=== PATIENT | female | born 1930 | race Caucasian/White ===

== ENCOUNTER 2017-04-15 11:46 | Inpatient (IN) | payer OTHER, MEDICARE ==
[~2017-04-15] VITALS: Ht 144.8 cm; Wt 62.1 kg
[~2017-04-15 11:46] MED LIST: ASPEC325 PO; CALC-20 PO; CLC100 PO; CTP1 PO; MOMLX PO; MULT-897 PO; NTRSLP4 SL; RXC5 PO
--- NOTE | 2017-04-15 12:13 | EMERGENCY ROOM VISIT NOTE ---
History Report prepared by Lamin: Michelle Duran Under the Supervision of: Dr. Nicolás Brooks M.D. First contact with patient: 11:56 Chief Complaint: CONFUSION Stated Complaint: CONFUSION History of Present Illness The patient is an 87 year old female who presents to the Emergency Room with complaints of worsening confusion since this 1000 morning. She was brought to the ED via EMS and is accompanied by her son, whom she lives with. Her son reports she has experienced 2 episodes of confusion in the past 2 months. This morning, when he woke her up, he noticed she was "not lucid". He states she became very weak when he tried to walk her to the bathroom for a sponge bath, which is her daily routine that she normally has no problem with, and he notes the distance is approximately 6 feet. She was unable to recall the word "buttons " as she was dressing herself, which is not normal for her. She also soiled herself with feces this morning, which is unusual for her. The patient ambulates with a walker and someone nearby to "spot her". She has not experienced any recent falls in the past 3 months. Her son denies any previous history of strokes. The patient and her son deny any recent fevers, chills, cough, congestion, nausea, vomiting or abdominal pain. Her PCP is Dr. Zeng with [facility]. Source of History: patient, family (son) Onset: 1000 this morning Position: other (global) Quality: other (confusion) Timing: worsening Associated Symptoms: + weakness, No fevers, No chills, No cough (cough or congestion), No nausea, No vomiting, No abdominal pain Review of Systems See HPI for pertinent positives and negatives. A total of ten systems were reviewed and were otherwise negative. Past Medical & Surgical Medical Problems: (1) Dementia (2) GERD (gastroesophageal reflux disease) (3) Osteoporosis Surgical Problems: (1) H/O shoulder replacement (2) History of open reduction and internal fixation (ORIF) procedure Family History Hypertension Social History Smoking Status: Never Smoker Alcohol Use: none Drug Use: none Marital Status: Housing Status: lives with family Occupation Status: retired Current/Historical Medications Scheduled Aspirin (Aspirin 81), 81 MG PO DAILY Calcium Carbonate (Calcium 600), 1 TAB PO DAILY Docusate Sodium (Docusate Sodium), 100 MG PO BID Multiple Vitamin (One Daily), 1 TAB PO DAILY Omeprazole (Eq Omeprazole), 20 MG PO DAILY Scheduled PRN Nitroglycerin (Nitrostat), 0.4 MG SL UD PRN for Chest Pain Polyethylene (Miralax), 17 GM PO DAILY PRN for Constipation Sennosides-Docusate Sodium (Doc-Q-Lax), 1 TAB PO DAILY PRN for Constipation Allergies Coded Allergies: No Known Allergies (Unverified , 04/15/17) Physical Exam Vital Signs Date Time Temp Pulse Resp B/P (MAP) Pulse Ox O2 Delivery O2 Flow Rate FiO2 04/15/17 15:29 79 21 132/78 96 Room Air 04/15/17 14:21 76 18 116/85 97 Room Air 04/15/17 13:48 97 18 96 Room Air 04/15/17 13:16 70 04/15/17 12:45 96 Room Air 04/15/17 12:00 37.0 86 18 146/98 96 Room Air Physical Exam GENERAL: Awake, alert, chronically ill-appearing, in no distress. alert to self only. HENT: Normocephalic, atraumatic. Oropharynx unremarkable. Dry mucous membranes. EYES: Normal conjunctiva. Sclera non-icteric. NECK: Supple. No nuchal rigidity. FROM. No JVD. RESPIRATORY: Decreased breath sounds at the bases. CARDIAC: Regular rate, normal rhythm. Extremities warm and well perfused. Pulses equal. ABDOMEN: Soft, non-distended. No tenderness to palpation. No rebound or guarding. No masses. RECTAL: Deferred. MUSCULOSKELETAL: Chest examination reveals no tenderness. The back is symmetrical on inspection without obvious abnormality. There is no CVA tenderness to palpation. No joint edema. LOWER EXTREMITIES: 4/5 strength in lower extremities and bilateral upper extremities. Calves are equal size bilaterally and non-tender. No edema. No discoloration. NEURO: Normal sensorium. No sensory or motor deficits noted. SKIN: No rash or jaundice noted. Medical Decision & Procedures ER Provider Diagnostic Interpretation: Radiology results as stated below per my review and radiologist interpretation: SINGLE VIEW CHEST CLINICAL HISTORY: Atypical chest pain. FINDINGS: An AP, portable, upright chest radiograph is compared to study dated 08/20/2014. The examination is degraded by portable technique and patient rotation. The heart appears enlarged and there is atherosclerotic calcification of the thoracic aorta. The pulmonary vascular structures noncongested. A large hiatal hernia is again noted. Chronic interstitial thickening is similar to previous. Left basilar atelectasis is again noted. The lungs and pleural spaces are otherwise clear. No pneumothorax is seen. The skeletal structures are osteopenic. A right shoulder arthroplasty is in place. Chronic posttraumatic deformity and a benign-appearing sclerotic lesion in the left proximal humerus are similar to previous. IMPRESSION: 1. Cardiomegaly with no acute cardiopulmonary abnormality. 2. Large hiatal hernia. Electronically signed by: Anuj Pina M.D. 04/15/2017 12:[address] HEAD WITHOUT CONTRAST (CT) CLINICAL HISTORY: confusion/weakness COMPARISON STUDY: 08/20/2014 TECHNIQUE: Axial CT of the brain is performed from the vertex to the skull base. IV contrast was not administered for this examination. A dose lowering technique was utilized adhering to the principles of ALARA. CT DOSE: 729.78 mGycm FINDINGS: No intra or extra-axial mass lesions are visualized. There is no CT evidence of acute cortical infarction. There is no evidence of midline shift. There is no acute hemorrhage. No calvarial fractures are visualized. There are moderate white matter hypodensities likely on a small vessel basis. There is no evidence of pathologic ventricular dilatation. There is no evidence of acute sinusitis IMPRESSION: No acute intracranial findings Electronically signed by: Dwain Sandoval M.D. 04/15/2017 1:08 PM Laboratory Results 04/15/17 13:30 Red Blood Count 4.56, Mean Corpuscular Volume 90.6, Mean Corpuscular Hemoglobin 29.6, Mean Corpuscular Hemoglobin Concent 32.7, Mean Platelet Volume 12.2, Neutrophils (%) (Auto) 91.4, Lymphocytes (%) (Auto) 2.2, Monocytes (%) (Auto) 5.8, Eosinophils (%) (Auto) 0.1, Basophils (%) (Auto) 0.2, Neutrophils # (Auto) 13.84, Lymphocytes # (Auto) 0.33, Monocytes # (Auto) 0.87, Eosinophils # (Auto) 0.02, Basophils # (Auto) 0.03 04/15/17 13:30 Test 04/15/17 13:27 04/15/17 13:30 04/15/17 13:45 Bedside Glucose 96 mg/dl (70-90) White Blood Count 15.13 K/uL (4.8-10.8) Red Blood Count 4.56 M/uL (4.2-5.4) Hemoglobin 13.5 g/dL (12.0-16.0) Hematocrit 41.3 % (37-47) Mean Corpuscular Volume 90.6 fL (80-100) Mean Corpuscular Hemoglobin 29.6 pg (25-34) Mean Corpuscular Hemoglobin Concent 32.7 g/dl (32-36) Platelet Count 268 K/uL (130-400) Mean Platelet Volume 12.2 fL (7.4-10.4) Neutrophils (%) (Auto) 91.4 % Lymphocytes (%) (Auto) 2.2 % Monocytes (%) (Auto) 5.8 % Eosinophils (%) (Auto) 0.1 % Basophils (%) (Auto) 0.2 % Neutrophils # (Auto) 13.84 K/uL (1.4-6.5) Lymphocytes # (Auto) 0.33 K/uL (1.2-3.4) Monocytes # (Auto) 0.87 K/uL (0.11-0.59) Eosinophils # (Auto) 0.02 K/uL (0-0.5) Basophils # (Auto) 0.03 K/uL (0-0.2) RDW Standard Deviation 46.9 fL (36.4-46.3) RDW Coefficient of Variation 14.3 % (11.5-14.5) Immature Granulocyte % (Auto) 0.3 % Immature Granulocyte # (Auto) 0.04 K/uL (0.00-0.02) Prothrombin Time 11.3 SECONDS (9.0-12.0) Prothromb Time International Ratio 1.1 (0.9-1.1) Anion Gap 7.0 mmol/L (3-11) Est Creatinine Clear Calc Drug Dose 21.9 ml/min Estimated GFR () 42.4 Estimated GFR (Non- 36.6 BUN/Creatinine Ratio 16.8 (10-20) Calcium Level 9.0 mg/dl (8.5-10.1) Total Bilirubin 3.8 mg/dl (0.2-1) Direct Bilirubin 2.7 mg/dl (0-0.2) Aspartate Amino Transf (AST/SGOT) 150 U/L (15-37) Alanine Aminotransferase (ALT/SGPT) 88 U/L (12-78) Alkaline Phosphatase 820 U/L (45-117) Total Protein 7.2 gm/dl (6.4-8.2) Albumin 2.9 gm/dl (3.4-5.0) Lipase 100 U/L (73-393) Urine Color DK YELLOW Urine Appearance CLEAR (CLEAR) Urine pH >= 9.0 (4.5-7.5) Urine Specific [place] 1.017 (1.000-1.030) Urine Protein 1+ (NEG) Urine Glucose (UA) NEG (NEG) Urine Ketones TRACE (NEG) Urine Occult Blood NEG (NEG) Urine Nitrite POS (NEG) Urine Bilirubin 1+ (NEG) Urine Urobilinogen NEG (NEG) Urine Leukocyte Esterase MODERATE (NEG) Urine WBC (Auto) >30 /hpf (0-5) Urine RBC (Auto) 0-4 /hpf (0-4) Urine Hyaline Casts (Auto) 5-10 /lpf (0-5) Urine Epithelial Cells (Auto) 0-5 /lpf (0-5) Urine Bacteria (Auto) 4+ (NEG) Laboratory results reviewed by me Medications Administered Medications (Trade) Dose Ordered Sig/Pricila Route Start Time Stop Time Status Last Admin Dose Admin Sodium Chloride 1,000 ml @ 999 mls/hr Q1H1M STAT IV 04/15/17 12:19 04/15/17 13:19 DC 04/15/17 13:52 999 MLS/HR Ceftriaxone Sodium (Rocephin Inj) 1 gm NOW STAT IV 04/15/17 15:05 04/15/17 15:07 DC 04/15/17 15:28 1 GM ECG Indication: weakness Rate (beats per minute): 81 Rhythm: normal sinus Findings: no acute ischemic change, other (normal axis) Change: no significant change (No change from 08/21/2014) ED Course 1204: The patient was evaluated in room B12. A complete history and physical exam was performed. 1219: NSS 1000 ml @ 999 mls/hr IV. 1505: Rocephin 1 gm IV. 1529: I discussed the patients case with Starr Curran PA-C, [facility] Hospitalist. The patient will be further evaluated. 1540: I reevaluated the patient. She is resting comfortably. I discussed my recommendation she remain in the hospital for further evaluation and management and she and her son verbalized complete understanding and agreement. Medical Decision I reviewed the patient's past medical history, medications, and the nursing notes as described above. Differential Diagnoses: Dehydration, infection (pulmonary or urinary source), failure to thrive, electrolyte abnormality, less likely stroke or intracranial hemorrhage. The patient is a 87-year-old woman who presents to the emergency department from home with worsening mental status and generalized weakness. History of present illness. Arrival with the patient is alert to self only and otherwise in no acute distress. Afebrile with stable vital signs. EKG unremarkable. Chest x-ray negative. CT head unremarkable. WBC with leukocytosis to 15. UA positive for UTI. Given ceftriaxone. Considering this patient has a urinary tract infection with a subsequent change in mental status and decline from her baseline functional status. Thus, patient would not be safe if discharged home. I discussed this with the patient's son who cares for the patient at her home and he is agreeable with plan for admission. Discussed with the hospitalist will admit the patient to the medicine service for further management. Medication Reconcilliation Current Medication List: was personally reviewed by me Blood Pressure Screening Patient's blood pressure: Elevated blood pressure Blood pressure disposition: Elevated BP felt to be situational Consults Time Called: 1525 Consulting Physician: [facility] Returned Call: 1529 I discussed the patients case with St[facility]. The patient will be further evaluated. Impression Primary Impression: UTI (urinary tract infection) Additional Impression: Altered mental status Scribe Attestation The scribe's documentation has been prepared under my direction and personally reviewed by me in its entirety. I confirm that the note above accurately reflects all work, treatment, procedures, and medical decision making performed by me. Departure Information Dispostion Being Evaluated By Hospitalist Referrals Enoc Duran M.D. (PCP) Patient Instructions My [facility] Problem Qualifiers
[2017-04-15] MEDS ORDERED: SODIUM CHLORIDE 0.9% 1000ML 1,000 ML IV STA (12:19)
--- NOTE | 2017-04-15 12:56 | DIAGNOSTIC IMAGING REPORT ---
SINGLE VIEW CHEST CLINICAL HISTORY: Atypical chest pain. FINDINGS: An AP, portable, upright chest radiograph is compared to study dated 08/20/2014. The examination is degraded by portable technique and patient rotation. The heart appears enlarged and there is atherosclerotic calcification of the thoracic aorta. The pulmonary vascular structures noncongested. A large hiatal hernia is again noted. Chronic interstitial thickening is similar to previous. Left basilar atelectasis is again noted. The lungs and pleural spaces are otherwise clear. No pneumothorax is seen. The skeletal structures are osteopenic. A right shoulder arthroplasty is in place. Chronic posttraumatic deformity and a benign-appearing sclerotic lesion in the left proximal humerus are similar to previous. IMPRESSION: 1. Cardiomegaly with no acute cardiopulmonary abnormality. 2. Large hiatal hernia. Electronically signed by: Anuj Pina M.D. 04/15/2017 12:55 PM Dictated Date/Time: 04/15/2017 12:53 PM
--- NOTE | 2017-04-15 13:10 | DIAGNOSTIC IMAGING REPORT ---
CT HEAD WITHOUT CONTRAST (CT) CLINICAL HISTORY: confusion/weakness COMPARISON STUDY: 08/20/2014 TECHNIQUE: Axial CT of the brain is performed from the vertex to the skull base. IV contrast was not administered for this examination. A dose lowering technique was utilized adhering to the principles of ALARA. CT DOSE: 729.78 mGycm FINDINGS: No intra or extra-axial mass lesions are visualized. There is no CT evidence of acute cortical infarction. There is no evidence of midline shift. There is no acute hemorrhage. No calvarial fractures are visualized. There are moderate white matter hypodensities likely on a small vessel basis. There is no evidence of pathologic ventricular dilatation. There is no evidence of acute sinusitis IMPRESSION: No acute intracranial findings Electronically signed by: Dwain Sandoval M.D. 04/15/2017 1:08 PM Dictated Date/Time: 04/15/2017 1:07 PM
[2017-04-15 14:00] LABS: HEMATOCRIT 41.3 % (37-47); MEAN CELL VOLUME 90.6 fL (80-100); MEAN CORPUSCULAR HEMOGLOBIN 29.6 pg (25-34); MEAN CORPUSCULAR HGB CONC 32.7 g/dl (32-36); MEAN PLATELET VOLUME 12.2 fL (7.4-10.4); PLATELET COUNT 268 K/uL (130-400); RED BLOOD COUNT 4.56 M/uL (4.2-5.4); WHITE BLOOD COUNT 15.13 K/uL (4.8-10.8)
[2017-04-15 14:09] LABS: INR 1.1 (0.9-1.1); PROTHROMBIN TIME (PATIENT) 11.3 SECONDS (9.0-12.0)
[2017-04-15 14:16] LABS: URINE APPEARANCE CLEAR (CLEAR); URINE COLOR DK YELLOW; URINE EPITHELIAL CELL AUTO 0-5 /lpf (0-5); URINE NITRITE POS (NEG); URINE PH >= 9.0 (4.5-7.5); URINE SPECIFIC GRAVITY 1.017 (1.000-1.030); UROBILINOGEN NEG (NEG)
[2017-04-15 14:25] LABS: BASO % 0.2 %; BASO ABS # 0.03 K/uL (0-0.2); COMPLETE YES; EOS % 0.1 %; IG% 0.3 %; LYMPH % 2.2 %; LYMPH ABS # 0.33 K/uL (1.2-3.4); MONO % 5.8 %; NEUT % 91.4 %
[2017-04-15 14:33] LABS: URINE BILIRUBIN 1+ (NEG)
[2017-04-15 14:34] LABS: MANUAL MICROSCOPIC REQUIRED? NO; REVIEW REQ? NO; SULFASALICYLIC ACID POS (NEG)
[2017-04-15 14:59] LABS: BUN/CREATININE RATIO 16.8 (10-20); CREATININE 1.3 mg/dl (0.60-1.20); POTASSIUM 4.5 mmol/L (3.5-5.1)
[2017-04-15] MEDS ORDERED: CEFTRIAXONE SOD INJ 1 GM ADDVIAL IV STA (15:05)
[2017-04-15] MEDS ORDERED: ACETAMINOPHEN 325 MG TAB PO PRN (16:15)
[2017-04-15] MEDS ORDERED: ASPI-435 PO (16:25)
[2017-04-15] MEDS ORDERED: CALC600T PO (16:25)
[2017-04-15] MEDS ORDERED: OMEP20TA31 PO (16:25)
[2017-04-15] MEDS ORDERED: MRLP17X PO (16:25)
[2017-04-15] MEDS ORDERED: SENN8.6T11 PO (16:25)
[2017-04-15] MEDS ORDERED: NITROGLYCERIN 0.4 MG SL PER TAB CHARGE SL PRN (16:30)
[2017-04-15] MEDS ORDERED: DOCUSATE SODIUM/SENNA 50/8.6MG TAB PO PRN (16:30)
[2017-04-15] MEDS ORDERED: CEFTRIAXONE SOD INJ 1 GM in DEXTROSE 5% ADD-VANTAGE 50ML 50 ML IV SCH (16:30)
[2017-04-15] MEDS ORDERED: POLYETHYLENE (MIRALAX) 17 GM PACK PO PRN (16:30)
--- NOTE | 2017-04-15 17:03 | History and Physical ---
History & Physical Date & Time of Service: Apr 15, 2017 at 16:26 Chief Complaint: Confusion Primary Care Physician: Zane Zeng D.O. History of Present Illness Source: patient, family (son at bedside), clinic records This is an 87 y/o female with PMH of dementia, GERD, and other problems listed below who presents to the ED with altered mental status. Hx obtained from son due to AMS. Per her son, patient was at baseline yesterday, then this morning she was more confused than usual. Son states she could not follow commands correctly and was unable to button her shirt. She was incontinent of stool this morning which was abnormal for her. At baseline she is forgetful and disoriented to year, but oriented to person and place, but this morning was unable to recall her son's name or her own last name. Son states she was lethargic and had difficulty standing from her recliner due to generalized weakness. She usually ambulates with a walker. No recent falls. 911 was called and patient was brought to ER by EMS. Son states she is improving but still not back to baseline. Patient is oriented to self and her son, but disoriented to place and time. She is unable to recall why she was brought here. She denies any complaints including chest pain or any other pain. Son states her PO intake has been decreased to 2 meals per day for 2 months. Patient is chronically incontinent of urine. No recent fevers, chills, URI symptoms, aspiration, cough , SOB, chest pain, abdominal pain, vomiting, diarrhea, urinary odor. There were no stroke like symptoms such as facial droop, slurred speech, or unilateral weakness. No history of cardiac disorder, per her son. Past Medical/Surgical History Medical Problems: (1) Dementia Status: Chronic (2) GERD (gastroesophageal reflux disease) Status: Chronic (3) Osteoporosis Status: Chronic Surgical Problems: (1) H/O shoulder replacement Status: Chronic (2) History of open reduction and internal fixation (ORIF) procedure Permanent Comment: right hip 2014 Status: Chronic Family History Hypertension Social History Smoking Status: Never Smoker Alcohol Use: none Marital Status: Housing status: lives with family (with son) Occupational Status: retired Allergies Coded Allergies: No Known Allergies (Unverified , 04/15/17) Home Medications Scheduled Aspirin (Aspirin 81), 81 MG PO DAILY Calcium Carbonate (Calcium 600), 1 TAB PO DAILY Docusate Sodium (Docusate Sodium), 100 MG PO BID Multiple Vitamin (One Daily), 1 TAB PO DAILY Omeprazole (Eq Omeprazole), 20 MG PO DAILY Scheduled PRN Nitroglycerin (Nitrostat), 0.4 MG SL UD PRN for Chest Pain Polyethylene (Miralax), 17 GM PO DAILY PRN for Constipation Sennosides-Docusate Sodium (Doc-Q-Lax), 1 TAB PO DAILY PRN for Constipation Review of Systems Unable to complete full ROS due to patient's mental status. Physical Exam Vital Signs Date Time Temp Pulse Resp B/P (MAP) Pulse Ox O2 Delivery O2 Flow Rate FiO2 04/15/17 15:29 79 21 132/78 96 Room Air 04/15/17 14:21 76 18 116/85 97 Room Air 04/15/17 13:48 97 18 96 Room Air 04/15/17 13:16 70 04/15/17 12:45 96 Room Air 04/15/17 12:00 37.0 86 18 146/98 96 Room Air General Appearance: no apparent distress, + thin, + pertinent finding ( pleasantly confused frail elderly female, son at bedside) Head: normocephalic, atraumatic Eyes: normal inspection, PERRL, EOMI ENT: hearing grossly normal, pharynx normal, + pertinent finding (dry oral mucosa. mostly edentulous.) Neck: supple, trachea midline Respiratory/Chest: lungs clear, normal breath sounds, no respiratory distress Cardiovascular: regular rate, rhythm, no murmur, normal peripheral pulses Abdomen/GI: normal bowel sounds, non tender, soft Extremities/Musculoskelatal: no calf tenderness, no pedal edema Neurologic/Psych: sanitation technician II-XII nml as tested (no dysarthria or facial droop), alert, normal mood/affect, + disoriented (oriented to herself and her son, disoriented to place and date), + pertinent finding (pleasantly confused, repetitive. follows basic commands. no focal motor deficit. information services assistant strength 5/5 bilateral upper extremities. bilateral UE generally weak, able to lift off the bed equally,strength 4/5. ) Skin: normal color, warm/dry, + pertinent finding (erythema on buttocks per ER nursing staff) Diagnostics Laboratory Results Results Past 24 Hours Test 04/15/17 13:27 04/15/17 13:30 04/15/17 13:45 Range/Units Bedside Glucose 96 70-90 mg/dl White Blood Count 15.13 4.8-10.8 K/uL Red Blood Count 4.56 4.2-5.4 M/uL Hemoglobin 13.5 12.0-16.0 g/dL Hematocrit 41.3 37-47 % Mean Corpuscular Volume 90.6 80-100 fL Mean Corpuscular Hemoglobin 29.6 25-34 pg Mean Corpuscular Hemoglobin Concent 32.7 32-36 g/dl Platelet Count 268 130-400 K/uL Mean Platelet Volume 12.2 7.4-10.4 fL Neutrophils (%) (Auto) 91.4 % Lymphocytes (%) (Auto) 2.2 % Monocytes (%) (Auto) 5.8 % Eosinophils (%) (Auto) 0.1 % Basophils (%) (Auto) 0.2 % Neutrophils # (Auto) 13.84 1.4-6.5 K/uL Lymphocytes # (Auto) 0.33 1.2-3.4 K/uL Monocytes # (Auto) 0.87 0.11-0.59 K/uL Eosinophils # (Auto) 0.02 0-0.5 K/uL Basophils # (Auto) 0.03 0-0.2 K/uL RDW Standard Deviation 46.9 36.4-46.3 fL RDW Coefficient of Variation 14.3 11.5-14.5 % Immature Granulocyte % (Auto) 0.3 % Immature Granulocyte # (Auto) 0.04 0.00-0.02 K/uL Prothrombin Time 11.3 9.0-12.0 SECONDS Prothromb Time International Ratio 1.1 0.9-1.1 Sodium Level 138 136-145 mmol/L Potassium Level 4.5 3.5-5.1 mmol/L Chloride Level 104 98-107 mmol/L Carbon Dioxide Level 27 21-32 mmol/L Anion Gap 7.0 3-11 mmol/L Blood Urea Nitrogen 22 7-18 mg/dl Creatinine 1.30 0.60-1.20 mg/dl Est Creatinine Clear Calc Drug Dose 21.9 ml/min Estimated GFR () 42.4 Estimated GFR (Non- 36.6 BUN/Creatinine Ratio 16.8 10-20 Random Glucose 96 70-99 mg/dl Calcium Level 9.0 8.5-10.1 mg/dl Total Bilirubin 3.8 0.2-1 mg/dl Direct Bilirubin 2.7 0-0.2 mg/dl Aspartate Amino Transf (AST/SGOT) 150 15-37 U/L Alanine Aminotransferase (ALT/SGPT) 88 12-78 U/L Alkaline Phosphatase 820 45-117 U/L Troponin I 0.105 0-0.045 ng/ml Total Protein 7.2 6.4-8.2 gm/dl Albumin 2.9 3.4-5.0 gm/dl Lipase 100 73-393 U/L Urine Color DK YELLOW Urine Appearance CLEAR CLEAR Urine pH >= 9.0 4.5-7.5 Urine Specific [place] 1.017 1.000-1.030 Urine Protein 1+ NEG Urine Glucose (UA) NEG NEG Urine Ketones TRACE NEG Urine Occult Blood NEG NEG Urine Nitrite POS NEG Urine Bilirubin 1+ NEG Urine Urobilinogen NEG NEG Urine Leukocyte Esterase MODERATE NEG Urine WBC (Auto) >30 0-5 /hpf Urine RBC (Auto) 0-4 0-4 /hpf Urine Hyaline Casts (Auto) 5-10 0-5 /lpf Urine Epithelial Cells (Auto) 0-5 0-5 /lpf Urine Bacteria (Auto) 4+ NEG Microbiology Results 04/15/17 Urine Culture, Received Pending Diagnostic Radiology CT HEAD WITHOUT CONTRAST (CT) IMPRESSION: No acute intracranial findings SINGLE VIEW CHEST IMPRESSION: 1. Cardiomegaly with no acute cardiopulmonary abnormality. 2. Large hiatal hernia. EKG poor data quality, NSR, 81 bpm, no ST change appreciated Impression Assessment and Plan ALTERED MENTAL STATUS Has baseline dementia; presents with increased confusion x 1 day Likely metabolic encephalopathy due to UTI, dehydration CT head- no acute findings Monitor for delirium URINARY TRACT INFECTION UA appears infected; urine culture pending + Leukocytosis (WBC 15K); afebrile, no sepsis Treated with empiric ceftriaxone in ER Continue ceftriaxone DEHYDRATION Clinically dry, Cr 1.3 (was 1.1 in 07/2016), BUN 22 Given 1 liter IVF's in ER Continue NSS at 100 mL/hour MILDLY ELEVATED TROPONIN Denies chest pain; EKG- no obvious ischemic change Monitor in telemetry Trend cardiac enzymes ABNORMAL LFT'S No prior LFT"s for comparison No recent alcohol intake Consider RUQ ultrasound, hepatitis panel AMBULATORY DYSFUNCTION Fall precautions PT and OT evaluations ERYTHEMA OF BUTTOCKS Consult wound care nurse GERD Continue PPI DVT PROPHYLAXIS Heparin SQ CODE STATUS DNR per my discussion with patient's son Miki Cutler at bedside who is POA. . DISPOSITION Lives with her son; also of note the son's sister today and he is responsible for arrangements May need placement; outreach and education social worker consulted Patient seen in collaboration with Dr. Thakur. Please see his addendum. Attending Note: Patient is an 87 yr female with dementia presents with history of altered mental status and burning micturition. She denies chest pain, SOB, abdominal pain, nausea, vomiting. CT head showed no acute pathology. UA is suggestive of UTI. Has elevated LFTs and leukocytosis on blood work.Clinically looks dehydrated. Physical Exam: Vitals signs as noted above General Appearance:Moderately built and nourished, no apparent distress Head: normocephalic, Atraumatic Eyes: normal inspection, EOMI, PERRL Neck: supple, Trachea midline Respiratory/Chest: Normal breath sounds, CTA Cardiovascular: S1, S2, No murmur Abdomen/GI:Soft, Non tender, Bowel sounds present Extremities/Musculoskelatal:normal inspection, no edema Neurologic/Psych:grossly no focal neurological deficits Skin:normal color,warm Assessment and Plan: Encephalopathy H/O baseline dementia Likely secondary to UTI Urine culture Continue Rocephin CT head: no acute pathology No signs of sepsis clinically dehydrated, monitor renal function Abnormal LFTs: Unknown baseline Check ABD USD, hepatitis panel Avoid Hepatotoxic meds Consider GI eval based on work up I personally reviewed the record. Patient is interviewed and examined at bedside. Patient's care is coordinated with Starr Curran PA-C. Please refer to the documentation above for details of patient's presentation and for discussion of other issues. VTE Prophylaxis VTE Risk Assessment Done? Y/N: Yes Risk Level: High
[2017-04-15 18:52] VITALS: BP 115/75; PULSE 69; TEMP 37; O2SAT 97
[2017-04-15 18:53] VITALS: BP 115/75; PULSE 69; TEMP 37; O2SAT 97; Ht 144.8 cm; Wt 62.1 kg
[2017-04-15] MEDS: SODIUM CHLORIDE 0.9% 1000ML 1,000 ML IV SCH (19:36)
[2017-04-15] MEDS: DOCUSATE SODIUM 100 MG CAP PO SCH (20:50)
[2017-04-15] MEDS: HEPARIN SOD 5000 UNIT/0.5 ML CARP SQ SCH (20:58)
[2017-04-15 21:29] VITALS: O2SAT 96
[2017-04-16] VITALS (8 sets, daily range): BP systolic 127–156; BP diastolic 74–82; PULSE 58–61; TEMP 36.3–36.6; O2SAT 94–97
[2017-04-16] MEDS: SODIUM CHLORIDE 0.9% 1000ML 1,000 ML IV SCH ×3 (02:41→22:32)
[2017-04-16 06:36] LABS: HEMATOCRIT 35.3 % (37-47); MEAN CELL VOLUME 89.8 fL (80-100); MEAN CORPUSCULAR HGB CONC 31.2 g/dl (32-36); MEAN PLATELET VOLUME 11.9 fL (7.4-10.4); PLATELET COUNT 230 K/uL (130-400); RED BLOOD COUNT 3.93 M/uL (4.2-5.4)
--- NOTE | 2017-04-16 06:36 | DIAGNOSTIC IMAGING REPORT ---
ABDOMEN COMPLETE (US) HISTORY: Abnormal liver function tests Levanted LFTs. COMPARISON: None. FINDINGS: Pancreas: Poorly seen due to overlying bowel content Liver: Distended intrahepatic biliary ductal systems. Gallbladder: Distended with multiple gallstones. Mild pericholecystic fluid. Mild thickening gallbladder wall 3.7 mm. CBD: 8.5 mm Kidneys: No hydronephrosis. Spleen: Normal in size. Aorta: Normal in caliber. IVC: Patent. IMPRESSION: Distended intra as well as extrahepatic biliary ductal system. Distended gallbladder with mild thickening of the gallbladder wall and mild pericholecystic edema. Possibility of acute cholecystitis with biliary ductal obstruction must be considered The above report was generated using voice recognition software. It may contain grammatical, syntax or spelling errors. Electronically signed by: Clifton Wynn M.D. 04/16/2017 6:34 AM Dictated Date/Time: 04/16/2017 6:32 AM
[2017-04-16 07:10] LABS: BUN/CREATININE RATIO 21.1 (10-20); CALCIUM 8.2 mg/dl (8.5-10.1); CREATININE 0.97 mg/dl (0.60-1.20); POTASSIUM 3.9 mmol/L (3.5-5.1)
[2017-04-16] MEDS: DOCUSATE SODIUM 100 MG CAP PO SCH ×2 (08:22→20:17)
[2017-04-16] MEDS: ASPIRIN 81 MG ECTAB PO SCH (08:22)
[2017-04-16] MEDS: TRAMADOL HCL 50 MG TAB PO PRN (08:22)
[2017-04-16] MEDS: HEPARIN SOD 5000 UNIT/0.5 ML CARP SQ SCH ×2 (08:25→20:49)
[2017-04-16] MEDS ORDERED: CALCIUM 600MG + VIT D 400 IU TAB PO SCH (09:00)
[2017-04-16] MEDS ORDERED: MULTIVITAMIN TAB PO SCH (09:00)
[2017-04-16] MEDS ORDERED: PANTOprazole SOD 40 MG TAB PO SCH (09:00)
--- NOTE | 2017-04-16 09:42 | Clinical Documentation Query ---
CLINICAL DOCUMENTATION QUERY 87 year old female who presents to the Emergency Room with complaints of worsening confusion. Patient is documented as being dehydrated and with a UTI. In your clinical opinion is this patient being managed for: ( X ) WILNER in setting of UTI and dehydration causing metabolic encephalopathy treated and resolved with IVF's and antibiotics. ( ) Other explanation of clinical findings (Please Explain) ( ) Unable to determine (Please Define) ( ) Need to Discuss ( ) Not Agree The medical record reflects the following clinical findings, treatment, and risk factors. Clinical Indicators: BUN 22, Creatinine 1.30, GFR 36.6, After treatment Creatinine 0.97, with dry mucous membranes Treatment: IVF's, daily PRP's, Risk Factors: Age, infection, Please clarify and document your clinical opinion in the progress notes and discharge summary. Terms such as "probable", "suspected", "likely", "questionable", "possible", or "still to be ruled out" are acceptable. IF IN AGREEMENT, YOU MUST DOCUMENT ABOVE DIAGNOSTIC STATEMENT IN DAILY PROGRESS NOTES AND DISCHARGE SUMMARY. This document is not part of the patient's record. AKIAcute Renal/Kidney Injury is defined as a rapid and usually reversible decline in GFR that may occur in the setting of normal renal function or with preexisting renal disease. Acute renal failure may present with a range of abnormal parameters. Current RIFLE criteria notes the following: "Patients can be classified either by GFR or by UO criteria." According to RIFLE, WILNER is defined as any of the following: SCr increased 2-3x baseline or GFR decreased >50% or <0.5mL/kg/h > 12 hrs The DIPAK criteria differ from the RIFLE criteria in several ways. The RIFLE criteria are defined as changes within 7 days, while the DIPAK criteria suggest using 48 hours. The DIPAK classification includes less severe injury in the criteria and DIPAK also avoids using the glomerular filtration rate as a marker in WILNER, as there is no dependable way to measure glomerular filtration rate and estimated glomerular filtration rate are unreliable in WILNER. The criteria: Abrupt (within 48 h) reduction in kidney function currently defined as an absolute increase in serum creatinine of 0.3 mg/dL or more (=26.4 umol/L) or a percentage increase in serum creatinine of 50% or more (1.5-fold from baseline) or a reduction in urine output (documented oliguria of < 0.5 mL/kg/h for >6 h) In 2012 the Kidney [employer]proving [employer] (KDIGO) released their clinical practice guidelines for acute kidney injury (WILNER), which build off of the RIFLE criteria and the DIPAK criteria. KDIGO defines WILNER as any of the following: Increase in serum creatinine by 0.3mg/dL or more within 48 hours or increase in serum creatinine to 1.5 times baseline or more within the last 7 days or urine output less than 0.5 mL/kg/h for 6 hours Thank You, Roger Rodriguez, RN [phone]
[2017-04-16] MEDS: ONDANSETRON INJ 2 MG/ML 2 ML VIAL IV PRN (09:51)
[2017-04-16] MEDS ORDERED: NURSING DECISION MEDICATION ORDER SCH (10:00)
[2017-04-16] MEDS ORDERED: MICONAZOLE NITRATE POWDER 43 GM EXT PRN (10:15)
--- NOTE | 2017-04-16 14:29 | DIAGNOSTIC IMAGING REPORT ---
KUB CLINICAL HISTORY: R/O Obstruction pain COMPARISON STUDY: No previous studies for comparison. FINDINGS: Nonobstructive bowel pattern. No secondary signs of free air. Right hip pinning procedure findings. Mild degenerative change of the bony pelvis and lumbar spine. IMPRESSION: Nonobstructive bowel pattern. The above report was generated using voice recognition software. It may contain grammatical, syntax or spelling errors. Electronically signed by: Clifton Wynn M.D. 04/16/2017 2:27 PM Dictated Date/Time: 04/16/2017 2:26 PM
--- NOTE | 2017-04-16 15:43 | Progress Note ---
Internal Med Progress Note Date of Service: Apr 16, 2017. Provider Documentation: SUBJECTIVE: Seen and examined at bedside. Has Nausea and vomiting Denies Abdominal pain Also denies SOB, chest pain OBJECTIVE: Vital Signs-as noted below General Appearance:Moderately built and nourished, no apparent distress Head: normocephalic, Atraumatic Eyes: normal inspection, EOMI, PERRL Neck: supple, Trachea midline Respiratory/Chest: Normal breath sounds, CTA Cardiovascular: S1, S2, No murmur Abdomen/GI:Soft, Non tender, Bowel sounds present Extremities/Musculoskelatal:normal inspection, no edema Neurologic/Psych:grossly no focal neurological deficits Skin:normal color,warm Lab data as noted below. ASSESSMENT & PLAN: Encephalopathy: Likely metabolic from infection H/O baseline dementia CT head:No acute intracranial findings Improved UTI: Urine culture: gram negative bacilli Continue ceftriaxone Follow up urine culture Acute cholecystitis with biliary ductal obstruction Abdomen USD: suggestive of acute cholecystis and biliary obstruction NPO for now IV fluids Continue Ceftriaxone and Flagyl KUB:Nonobstructive bowel pattern Surgery consulted Avoid Hepatotoxic meds WILNER DEHYDRATION Clinically dry, Cr 1.3 on presentation Continue IV fluids Cr is back to baseline MILDLY ELEVATED TROPONIN Denies chest pain; EKG- no obvious ischemic change Monitor in telemetry Troponin trended down AMBULATORY DYSFUNCTION Fall precautions PT/OT GERD Continue PPI DVT Px Heparin SQ CODE STATUS DNR per my discussion with patient's son Miki Cutler at bedside who is POA. . DISPOSITION May need placement; social work nurse consulted Monitor in Tele for now Vital Signs: Date Time Temp Pulse Resp B/P (MAP) Pulse Ox O2 Delivery O2 Flow Rate FiO2 04/16/17 16:00 97 Room Air 04/16/17 15:20 36.4 60 16 156/82 (106) 97 04/16/17 12:30 Room Air 04/16/17 12:18 36.6 60 16 151/77 (101) 95 Room Air 04/16/17 07:45 Room Air 04/16/17 07:37 36.3 58 16 146/76 (99) 96 Room Air 04/16/17 04:26 36.4 58 20 147/79 (101) 97 Room Air 04/16/17 04:00 Room Air 04/16/17 00:18 36.3 61 20 127/74 (91) 97 Room Air 04/16/17 00:00 Room Air 04/15/17 21:29 96 Room Air 04/15/17 18:53 37.0 69 20 115/75 97 Room Air 04/15/17 18:52 37.0 69 20 115/75 (88) 97 Room Air Lab Results: Results Past 24 Hours Test 04/15/17 19:17 04/16/17 01:25 04/16/17 05:47 Range/Units Total Creatine Kinase 20 22 26-192 U/L Creatine Kinase MB < 0.5 < 0.5 0.5-3.6 ng/ml Creatine Kinase MB Ratio 0-3.0 Troponin I 0.101 0.099 0-0.045 ng/ml Hepatitis B Surface Antigen NEG NEG Hepatitis C Antibody NEG NEG White Blood Count 9.20 4.8-10.8 K/uL Red Blood Count 3.93 4.2-5.4 M/uL Hemoglobin 11.0 12.0-16.0 g/dL Hematocrit 35.3 37-47 % Mean Corpuscular Volume 89.8 80-100 fL Mean Corpuscular Hemoglobin 28.0 25-34 pg Mean Corpuscular Hemoglobin Concent 31.2 32-36 g/dl RDW Standard Deviation 47.1 36.4-46.3 fL RDW Coefficient of Variation 14.2 11.5-14.5 % Platelet Count 230 130-400 K/uL Mean Platelet Volume 11.9 7.4-10.4 fL Sodium Level 140 136-145 mmol/L Potassium Level 3.9 3.5-5.1 mmol/L Chloride Level 109 98-107 mmol/L Carbon Dioxide Level 25 21-32 mmol/L Anion Gap 6.0 3-11 mmol/L Blood Urea Nitrogen 21 7-18 mg/dl Creatinine 0.97 0.60-1.20 mg/dl Est Creatinine Clear Calc Drug Dose 29.9 ml/min Estimated GFR () 60.4 Estimated GFR (Non- 52.1 BUN/Creatinine Ratio 21.1 10-20 Random Glucose 83 70-99 mg/dl Calcium Level 8.2 8.5-10.1 mg/dl Total Bilirubin 2.2 0.2-1 mg/dl Direct Bilirubin 1.6 0-0.2 mg/dl Aspartate Amino Transf (AST/SGOT) 111 15-37 U/L Alanine Aminotransferase (ALT/SGPT) 72 12-78 U/L Alkaline Phosphatase 568 45-117 U/L Total Protein 5.6 6.4-8.2 gm/dl Albumin 2.1 3.4-5.0 gm/dl
[2017-04-16] MEDS: CEFTRIAXONE SOD INJ 1 GM in DEXTROSE 5% ADD-VANTAGE 50ML 50 ML IV SCH (16:10)
[2017-04-16] MEDS: METRONIDAZOLE / NSS 500 MG in PREMIXED NSS 100 ML IV SCH (16:56)
[2017-04-16] MEDS: RANITIDINE IV 50 MG in DEXTROSE 5% 100ML 100 ML IV SCH (18:09)
--- NOTE | 2017-04-16 19:57 | Surgery Consultation ---
Consultation Date of Consultation: Apr 16, 2017. Attending Physician: Eric Thakur MD Reason for Consultation: Elevated LFTs and possible cholecystitis History of Present Illness This patient has some degree of dementia. She was able to answer some questions but the majority of her history was obtained from the chart. Yesterday morning the patient was noted to be more confused than is her baseline. She had some fecal incontinence as well which is not baseline for her. She was not oriented to her last pain more to her son's name. She was not complaining of any abdominal pain at the time. She was admitted for workup and noted to have elevated LFTs. A gallbladder ultrasound was obtained. She has a dilated gallbladder with cholelithiasis and a common bile duct measuring 8.5 cm. Her liver function tests decreased this morning relative to yesterday. At the present time she has no abdominal pain. She was able to answer the majority of my questions appropriately. She has been having vomiting but she has not had nausea. She stated that the vomitus chest appears. It has been black. It is small in amount with each episode. She underwent a KUB today that showed no evidence of an obstructive pattern. She's not had previous abdominal surgery. She is not on anticoagulation. Past Medical/Surgical History Medical Problems: (1) Altered mental status Status: Acute (2) UTI (urinary tract infection) Status: Acute Family History Hypertension Social History Smoking Status: Unknown if Ever Smoked Smokeless Tobacco Use: No Alcohol Use: none Marital Status: Housing Status: lives with family Occupation Status: retired Allergies Coded Allergies: No Known Allergies (Unverified , 04/15/17) Home Medications Scheduled Aspirin (Aspirin 81), 81 MG PO DAILY Calcium Carbonate (Calcium 600), 1 TAB PO DAILY Docusate Sodium (Docusate Sodium), 100 MG PO BID Multiple Vitamin (One Daily), 1 TAB PO DAILY Omeprazole (Eq Omeprazole), 20 MG PO DAILY Scheduled PRN Nitroglycerin (Nitrostat), 0.4 MG SL UD PRN for Chest Pain Polyethylene (Miralax), 17 GM PO DAILY PRN for Constipation Sennosides-Docusate Sodium (Doc-Q-Lax), 1 TAB PO DAILY PRN for Constipation Current Inpatient Medications Current Inpatient Medications Medications (Trade) Dose Ordered Sig/Pricila Route Start Time Stop Time Status Last Admin Dose Admin Heparin Sodium (Porcine) (Heparin Sq 5000 Unit/0.5ml) 5,000 unit Q12 SQ 04/15/17 21:00 05/15/17 20:59 04/16/17 08:25 5,000 UNIT Sodium Chloride 1,000 ml @ 100 mls/hr Q10H IV 04/15/17 16:13 05/15/17 16:12 04/16/17 12:37 100 MLS/HR Ondansetron HCl (Zofran Inj) 4 mg Q6H PRN IV 04/15/17 16:15 05/15/17 16:14 04/16/17 09:51 4 MG Ceftriaxone Sodium 1 gm/ Dextrose 50 ml @ 100 mls/hr DAILY@1600 IV 04/16/17 16:00 04/20/17 15:59 04/16/17 16:10 100 MLS/HR Aspirin (Ecotrin Tab) 81 mg DAILY PO 04/16/17 09:00 05/16/17 08:59 04/16/17 08:22 81 MG Docusate Sodium (coLACE CAP) 100 mg BID PO 04/15/17 21:00 05/15/17 20:59 04/16/17 08:22 100 MG Nitroglycerin (Nitrostat Tab) 0.4 mg UD PRN SL 04/15/17 16:30 05/15/17 16:29 Polyethylene (Miralax Powder Packet) 17 gm DAILY PRN PO 04/15/17 16:30 05/15/17 16:29 Senna/Docusate Sodium (Senokot S Tab) 1 tab DAILY PRN PO 04/15/17 16:30 05/15/17 16:29 Calcium/Vitamin D (Caltrate Plus Tab) 1 tab DAILY PO 04/16/17 09:00 05/16/17 08:59 Future Hold 04/16/17 08:22 1 TAB Tramadol HCl (Ultram Tab) 50 mg Q6H PRN PO 04/16/17 08:00 05/16/17 07:59 04/16/17 08:22 50 MG Miconazole Nitrate (Desenex Powder) 1 appln PRN PRN EXT 04/16/17 10:15 05/16/17 10:14 Metronidazole 500 mg/Prmx 100 ml @ 100 mls/hr Q8H IV 04/16/17 16:00 04/26/17 15:59 04/16/17 16:56 100 MLS/HR Ranitidine HCl 50 mg/Dextrose 102 ml @ 200 mls/hr Q24H IV 04/16/17 16:00 05/16/17 15:59 04/16/17 18:09 200 MLS/HR Review of Systems Constitutional: No fever, No chills Cardiovascular: No chest pain Abdomen: + vomiting, No pain Integumentary: No rash Physical Exam Date Time Temp Pulse Resp B/P (MAP) Pulse Ox O2 Delivery O2 Flow Rate FiO2 04/16/17 19:27 36.6 59 18 151/77 (101) 96 Room Air 04/16/17 16:00 97 Room Air 04/16/17 15:20 36.4 60 16 156/82 (106) 97 04/16/17 12:30 Room Air 04/16/17 12:18 36.6 60 16 151/77 (101) 95 Room Air 04/16/17 07:45 Room Air 04/16/17 07:37 36.3 58 16 146/76 (99) 96 Room Air 04/16/17 04:26 36.4 58 20 147/79 (101) 97 Room Air 04/16/17 04:00 Room Air 04/16/17 00:18 36.3 61 20 127/74 (91) 97 Room Air 04/16/17 00:00 Room Air 04/15/17 21:29 96 Room Air General Appearance: + pertinent finding (elderly female with mild dementia) Head: normocephalic Neck: supple Respiratory/Chest: lungs clear Cardiovascular: regular rate, rhythm Abdomen/GI: normal bowel sounds, non tender, soft Back: normal inspection, no CVA tenderness Skin: normal color Laboratory Results Last 24 Hours Test 04/16/17 01:25 04/16/17 05:47 Total Creatine Kinase 22 U/L Creatine Kinase MB < 0.5 ng/ml Creatine Kinase MB Ratio Troponin I 0.099 ng/ml White Blood Count 9.20 K/uL Red Blood Count 3.93 M/uL Hemoglobin 11.0 g/dL Hematocrit 35.3 % Mean Corpuscular Volume 89.8 fL Mean Corpuscular Hemoglobin 28.0 pg Mean Corpuscular Hemoglobin Concent 31.2 g/dl RDW Standard Deviation 47.1 fL RDW Coefficient of Variation 14.2 % Platelet Count 230 K/uL Mean Platelet Volume 11.9 fL Sodium Level 140 mmol/L Potassium Level 3.9 mmol/L Chloride Level 109 mmol/L Carbon Dioxide Level 25 mmol/L Anion Gap 6.0 mmol/L Blood Urea Nitrogen 21 mg/dl Creatinine 0.97 mg/dl Est Creatinine Clear Calc Drug Dose 29.9 ml/min Estimated GFR () 60.4 Estimated GFR (Non- 52.1 BUN/Creatinine Ratio 21.1 Random Glucose 83 mg/dl Calcium Level 8.2 mg/dl Total Bilirubin 2.2 mg/dl Direct Bilirubin 1.6 mg/dl Aspartate Amino Transf (AST/SGOT) 111 U/L Alanine Aminotransferase (ALT/SGPT) 72 U/L Alkaline Phosphatase 568 U/L Total Protein 5.6 gm/dl Albumin 2.1 gm/dl Pertinent radiology as per history of present illness Assessment & Plan This patient has elevated LFTs which are decreasing. She also has an ultrasound that shows cholelithiasis with mildly thickened gallbladder wall and a dilated common bile duct. She is having some vomiting but denies nausea. She denies abdominal pain at this time. We'll course of treatment would be for a cholecystectomy with intraoperative cholangiogram for LFTs continued to decrease. The O would be to continue with intravenous antibiotics and treat her symptomatically and expectantly. I would need to discuss surgical options to see if that would even be something that the she and her family were entertained. I did have a discussion with her son. We will try to contact him earlier but he was not available. We will await LFTs in the morning. If they increased in ERCP may be the necessary first step if they are interested in such aggressive intervention. Thank you for allowing me to see this patient participate in her care.
[2017-04-17] MEDS: METRONIDAZOLE / NSS 500 MG in PREMIXED NSS 100 ML IV SCH ×3 (00:33→17:06)
[2017-04-17 04:16] VITALS: BP 158/85; PULSE 73; TEMP 36.8; O2SAT 98
[2017-04-17 06:47] LABS: BASO % 0.4 %; BASO ABS # 0.03 K/uL (0-0.2); COMPLETE YES; EOS % 1.8 %; IG% 0.1 %; LYMPH % 10.7 %; LYMPH ABS # 0.75 K/uL (1.2-3.4); MEAN CELL VOLUME 90.2 fL (80-100); MEAN CORPUSCULAR HEMOGLOBIN 29.3 pg (25-34); MEAN CORPUSCULAR HGB CONC 32.5 g/dl (32-36); MEAN PLATELET VOLUME 12.1 fL (7.4-10.4); MONO % 7.1 %; NEUT % 79.9 %; PLATELET COUNT 224 K/uL (130-400); RED BLOOD COUNT 3.99 M/uL (4.2-5.4); WHITE BLOOD COUNT 7.03 K/uL (4.8-10.8)
[2017-04-17 07:21] LABS: BUN/CREATININE RATIO 20.2 (10-20); CALCIUM 8.6 mg/dl (8.5-10.1); CREATININE 0.93 mg/dl (0.60-1.20); POTASSIUM 3.7 mmol/L (3.5-5.1)
[2017-04-17] MEDS: ASPIRIN 81 MG ECTAB PO SCH (07:46)
[2017-04-17] MEDS: DOCUSATE SODIUM 100 MG CAP PO SCH ×2 (07:46→21:56)
[2017-04-17] MEDS: SODIUM CHLORIDE 0.9% 1000ML 1,000 ML IV SCH (07:51)
[2017-04-17] MEDS: HEPARIN SOD 5000 UNIT/0.5 ML CARP SQ SCH ×2 (07:52→21:58)
[2017-04-17] MEDS: ONDANSETRON INJ 2 MG/ML 2 ML VIAL IV PRN (08:19)
[2017-04-17 11:26] VITALS: BP 162/84; PULSE 60; TEMP 36.5; O2SAT 96
--- NOTE | 2017-04-17 12:38 | Surgery Progress Note ---
Surgery Progress Note Date of Service Apr 17, 2017. Subjective Post OP Day: + feeling well, + vomiting, No chest pain, No SOB, No bowel movement, No nausea Very pleasant, known dementia. States she ate breakfast this morning but son/ POA present in room states she has not had breakfast this morning. Has been kept from not eating due to possible surgery. Had some vomiting with a little darkish/green emesis per son. Patient denies abdominal pain, chest pain, shortness of breath or difficulty breathing. Has chronic cough and phlegm production from hiatal hernia. States she has burning on urination. Objective Vital Signs: Date Time Temp Pulse Resp B/P (MAP) Pulse Ox O2 Delivery O2 Flow Rate FiO2 04/17/17 11:26 36.5 60 162/84 (110) 96 04/17/17 07:45 Room Air 04/17/17 04:16 36.8 73 20 158/85 (109) 98 Room Air 04/17/17 04:00 Room Air 04/17/17 02:00 Room Air 04/16/17 22:59 36.5 61 18 149/77 (101) 94 Room Air 04/16/17 19:27 36.6 59 18 151/77 (101) 96 Room Air 04/16/17 16:00 97 Room Air 04/16/17 15:20 36.4 60 16 156/82 (106) 97 04/16/17 12:30 Room Air General Appearance: WD/WN, no apparent distress Head: normocephalic, atraumatic Neck: trachea midline Respiratory/Chest: lungs clear, normal breath sounds, no respiratory distress, no accessory muscle use Cardiovascular: regular rate, rhythm, no murmur Abdomen: normal bowel sounds, non tender, non distended, soft, no organomegaly , no pulsatile mass Laboratory Results: Results Past 24 Hours Test 04/17/17 06:09 Range/Units White Blood Count 7.03 4.8-10.8 K/uL Red Blood Count 3.99 4.2-5.4 M/uL Hemoglobin 11.7 12.0-16.0 g/dL Hematocrit 36.0 37-47 % Mean Corpuscular Volume 90.2 80-100 fL Mean Corpuscular Hemoglobin 29.3 25-34 pg Mean Corpuscular Hemoglobin Concent 32.5 32-36 g/dl Platelet Count 224 130-400 K/uL Mean Platelet Volume 12.1 7.4-10.4 fL Neutrophils (%) (Auto) 79.9 % Lymphocytes (%) (Auto) 10.7 % Monocytes (%) (Auto) 7.1 % Eosinophils (%) (Auto) 1.8 % Basophils (%) (Auto) 0.4 % Neutrophils # (Auto) 5.61 1.4-6.5 K/uL Lymphocytes # (Auto) 0.75 1.2-3.4 K/uL Monocytes # (Auto) 0.50 0.11-0.59 K/uL Eosinophils # (Auto) 0.13 0-0.5 K/uL Basophils # (Auto) 0.03 0-0.2 K/uL RDW Standard Deviation 48.2 36.4-46.3 fL RDW Coefficient of Variation 14.4 11.5-14.5 % Immature Granulocyte % (Auto) 0.1 % Immature Granulocyte # (Auto) 0.01 0.00-0.02 K/uL Sodium Level 137 136-145 mmol/L Potassium Level 3.7 3.5-5.1 mmol/L Chloride Level 106 98-107 mmol/L Carbon Dioxide Level 24 21-32 mmol/L Anion Gap 7.0 3-11 mmol/L Blood Urea Nitrogen 19 7-18 mg/dl Creatinine 0.93 0.60-1.20 mg/dl Est Creatinine Clear Calc Drug Dose 31.2 ml/min Estimated GFR () 63.6 Estimated GFR (Non- 54.9 BUN/Creatinine Ratio 20.2 10-20 Random Glucose 82 70-99 mg/dl Calcium Level 8.6 8.5-10.1 mg/dl Total Bilirubin 1.2 0.2-1 mg/dl Direct Bilirubin 0.7 0-0.2 mg/dl Aspartate Amino Transf (AST/SGOT) 67 15-37 U/L Alanine Aminotransferase (ALT/SGPT) 62 12-78 U/L Alkaline Phosphatase 530 45-117 U/L Total Protein 6.1 6.4-8.2 gm/dl Albumin 2.4 3.4-5.0 gm/dl Assessment & Plan Acute Calculous Cholecystitis with dilated CBD - vitals stable - no leukocytosis - total bilirubin and direct bilirubin, LFTS improving - no abdominal pain, abdomen soft on examination. Plan: I discussed with patient and Son, Miki Cutler, who is her POA the findings of ultrasound as well as her elevated LFTS and bilirubin (which today have improved ). The ultrasound shows evidence of acute cholecystitis with gallbladder wall thickening, pericholecystic fluid, gallstones and dilated CBD at 8 mm. Given these findings, cholecystectomy is recommended. Patient's son states him and his brother have discussed the surgery and understand the risks and are in agreement about surgery. Will plan for laparoscopic cholecystectomy with cholangiogram on Thursday with Dr. Hopper Continue IV antibiotics Continue current medical management Dr. Encarnacion to cover this weekend Dr. Hopper has seen and examined patient, agrees with above
[2017-04-17 15:43] VITALS: BP 159/87; PULSE 61; TEMP 36.6; O2SAT 94
[2017-04-17 16:00] VITALS: O2SAT 94
--- NOTE | 2017-04-17 16:09 | Progress Note ---
Internal Med Progress Note Date of Service: Apr 17, 2017. Provider Documentation: SUBJECTIVE: Seen and examined at bedside. States feeling well today Denies Nausea, vomiting, Abdominal pain Also denies SOB, chest pain Planned for cholecystectomy on Thursday Offers no other complaints OBJECTIVE: Vital Signs-as noted below General Appearance:Moderately built and nourished, no apparent distress Head: normocephalic, Atraumatic Eyes: normal inspection, EOMI, PERRL Neck: supple, Trachea midline Respiratory/Chest: Normal breath sounds, CTA Cardiovascular: S1, S2, No murmur Abdomen/GI:Soft, Non tender, Bowel sounds present Extremities/Musculoskelatal:normal inspection, no edema Neurologic/Psych:grossly no focal neurological deficits Skin:normal color,warm Lab data as noted below. ASSESSMENT & PLAN: Encephalopathy: Likely metabolic from infection H/O baseline dementia CT head:No acute intracranial findings Resolved UTI: Urine culture:Proteus Continue ceftriaxone Acute cholecystitis with biliary ductal obstruction Abdomen USD: suggestive of acute cholecystis and biliary obstruction NPO for now IV fluids Continue Ceftriaxone and Flagyl KUB:Nonobstructive bowel pattern Appreciate Surgery input Avoid Hepatotoxic meds Planned for surgery on thursday LFTs improving WILNER DEHYDRATION Clinically dry, Cr 1.3 on presentation Continue IV fluids Cr is back to baseline MILDLY ELEVATED TROPONIN Denies chest pain; EKG- no obvious ischemic change Monitor in telemetry Troponin trended down AMBULATORY DYSFUNCTION Fall precautions PT/OT GERD Continue PPI DVT Px Heparin SQ CODE STATUS DNR per my discussion with patient's son Miki Cutler at bedside who is POA. . DISPOSITION May need placement; drug abuse social worker consulted Monitor in Tele for now Vital Signs: Date Time Temp Pulse Resp B/P (MAP) Pulse Ox O2 Delivery O2 Flow Rate FiO2 04/17/17 15:43 36.6 61 18 159/87 (111) 94 Room Air 04/17/17 12:30 Room Air 04/17/17 11:26 36.5 60 162/84 (110) 96 04/17/17 07:45 Room Air 04/17/17 04:16 36.8 73 20 158/85 (109) 98 Room Air 04/17/17 04:00 Room Air 04/17/17 02:00 Room Air 04/16/17 22:59 36.5 61 18 149/77 (101) 94 Room Air 04/16/17 19:27 36.6 59 18 151/77 (101) 96 Room Air Lab Results: Results Past 24 Hours Test 04/17/17 06:09 Range/Units White Blood Count 7.03 4.8-10.8 K/uL Red Blood Count 3.99 4.2-5.4 M/uL Hemoglobin 11.7 12.0-16.0 g/dL Hematocrit 36.0 37-47 % Mean Corpuscular Volume 90.2 80-100 fL Mean Corpuscular Hemoglobin 29.3 25-34 pg Mean Corpuscular Hemoglobin Concent 32.5 32-36 g/dl Platelet Count 224 130-400 K/uL Mean Platelet Volume 12.1 7.4-10.4 fL Neutrophils (%) (Auto) 79.9 % Lymphocytes (%) (Auto) 10.7 % Monocytes (%) (Auto) 7.1 % Eosinophils (%) (Auto) 1.8 % Basophils (%) (Auto) 0.4 % Neutrophils # (Auto) 5.61 1.4-6.5 K/uL Lymphocytes # (Auto) 0.75 1.2-3.4 K/uL Monocytes # (Auto) 0.50 0.11-0.59 K/uL Eosinophils # (Auto) 0.13 0-0.5 K/uL Basophils # (Auto) 0.03 0-0.2 K/uL RDW Standard Deviation 48.2 36.4-46.3 fL RDW Coefficient of Variation 14.4 11.5-14.5 % Immature Granulocyte % (Auto) 0.1 % Immature Granulocyte # (Auto) 0.01 0.00-0.02 K/uL Sodium Level 137 136-145 mmol/L Potassium Level 3.7 3.5-5.1 mmol/L Chloride Level 106 98-107 mmol/L Carbon Dioxide Level 24 21-32 mmol/L Anion Gap 7.0 3-11 mmol/L Blood Urea Nitrogen 19 7-18 mg/dl Creatinine 0.93 0.60-1.20 mg/dl Est Creatinine Clear Calc Drug Dose 31.2 ml/min Estimated GFR () 63.6 Estimated GFR (Non- 54.9 BUN/Creatinine Ratio 20.2 10-20 Random Glucose 82 70-99 mg/dl Calcium Level 8.6 8.5-10.1 mg/dl Total Bilirubin 1.2 0.2-1 mg/dl Direct Bilirubin 0.7 0-0.2 mg/dl Aspartate Amino Transf (AST/SGOT) 67 15-37 U/L Alanine Aminotransferase (ALT/SGPT) 62 12-78 U/L Alkaline Phosphatase 530 45-117 U/L Total Protein 6.1 6.4-8.2 gm/dl Albumin 2.4 3.4-5.0 gm/dl
[2017-04-17] MEDS: RANITIDINE IV 50 MG in DEXTROSE 5% 100ML 100 ML IV SCH (17:06)
[2017-04-17] MEDS: CEFTRIAXONE SOD INJ 1 GM in DEXTROSE 5% ADD-VANTAGE 50ML 50 ML IV SCH (18:06)
[2017-04-17] MEDS: D5W AND 1/2NSS + 20MEQ KCL 1,000 ML IV SCH (19:21)
[2017-04-17 20:00] VITALS: O2SAT 94
[2017-04-17 20:10] VITALS: BP 154/89; PULSE 81; TEMP 36.8; O2SAT 95
[2017-04-18] VITALS (11 sets, daily range): BP systolic 143–174; BP diastolic 80–97; PULSE 54–70; TEMP 36.4–37.1; O2SAT 92–97
[2017-04-18] MEDS: METRONIDAZOLE / NSS 500 MG in PREMIXED NSS 100 ML IV SCH ×3 (00:18→17:00)
[2017-04-18] MEDS ORDERED: POTASSIUM CHLORIDE 10 MEQ TABCR PO STA (00:46)
[2017-04-18 01:19] LABS: BASO % 0.9 %; BASO ABS # 0.06 K/uL (0-0.2); COMPLETE YES; EOS % 3.1 %; HEMATOCRIT 34.1 % (37-47); IG% 0.3 %; LYMPH ABS # 0.87 K/uL (1.2-3.4); MEAN CORPUSCULAR HEMOGLOBIN 30.1 pg (25-34); MEAN CORPUSCULAR HGB CONC 34.6 g/dl (32-36); MEAN PLATELET VOLUME 10.6 fL (7.4-10.4); MONO % 10.2 %; NEUT % 72.5 %; PLATELET COUNT 237 K/uL (130-400); RED BLOOD COUNT 3.92 M/uL (4.2-5.4); WHITE BLOOD COUNT 6.68 K/uL (4.8-10.8)
[2017-04-18 01:40] LABS: BUN/CREATININE RATIO 14.7 (10-20); CALCIUM 8.2 mg/dl (8.5-10.1); CREATININE 0.85 mg/dl (0.60-1.20); MAGNESIUM 1.6 mg/dl (1.8-2.4); POTASSIUM 3.4 mmol/L (3.5-5.1)
[2017-04-18] MEDS ORDERED: METOPROLOL TARTRATE 25 MG TAB PO ONE (02:27)
--- NOTE | 2017-04-18 02:28 | Progress Note ---
Internal Med Progress Note Date of Service: Apr 18, 2017. Provider Documentation: Made aware by RN of episodes of NSVT. Patient comfortable through episodes. Low potassium, low magnesium noted. AP NSVT Hypertension, elevated, not on maintenance medications Replace lytes Initiate low-dose beta chalino to suppress NSVT and for BP control. Will relay to AM provider. Vital Signs: Date Time Temp Pulse Resp B/P (MAP) Pulse Ox O2 Delivery O2 Flow Rate FiO2 04/18/17 08:03 36.7 56 22 162/83 (109) 96 Room Air 04/18/17 08:00 96 Room Air 04/18/17 04:00 Room Air 04/18/17 04:00 36.7 66 20 155/80 (105) Room Air 04/18/17 00:29 37.1 63 24 152/87 (108) 96 Room Air 04/18/17 00:00 Room Air 04/17/17 20:10 36.8 81 18 154/89 (110) 95 Room Air 04/17/17 20:00 94 Room Air 04/17/17 16:00 94 Room Air 04/17/17 15:43 36.6 61 18 159/87 (111) 94 Room Air 04/17/17 12:30 Room Air 04/17/17 11:26 36.5 60 162/84 (110) 96 Lab Results: Results Past 24 Hours Test 04/18/17 01:09 Range/Units White Blood Count 6.68 4.8-10.8 K/uL Red Blood Count 3.92 4.2-5.4 M/uL Hemoglobin 11.8 12.0-16.0 g/dL Hematocrit 34.1 37-47 % Mean Corpuscular Volume 87.0 80-100 fL Mean Corpuscular Hemoglobin 30.1 25-34 pg Mean Corpuscular Hemoglobin Concent 34.6 32-36 g/dl Platelet Count 237 130-400 K/uL Mean Platelet Volume 10.6 7.4-10.4 fL Neutrophils (%) (Auto) 72.5 % Lymphocytes (%) (Auto) 13.0 % Monocytes (%) (Auto) 10.2 % Eosinophils (%) (Auto) 3.1 % Basophils (%) (Auto) 0.9 % Neutrophils # (Auto) 4.84 1.4-6.5 K/uL Lymphocytes # (Auto) 0.87 1.2-3.4 K/uL Monocytes # (Auto) 0.68 0.11-0.59 K/uL Eosinophils # (Auto) 0.21 0-0.5 K/uL Basophils # (Auto) 0.06 0-0.2 K/uL RDW Standard Deviation 45.0 36.4-46.3 fL RDW Coefficient of Variation 14.1 11.5-14.5 % Immature Granulocyte % (Auto) 0.3 % Immature Granulocyte # (Auto) 0.02 0.00-0.02 K/uL Sodium Level 137 136-145 mmol/L Potassium Level 3.4 3.5-5.1 mmol/L Chloride Level 105 98-107 mmol/L Carbon Dioxide Level 24 21-32 mmol/L Anion Gap 8.0 3-11 mmol/L Blood Urea Nitrogen 13 7-18 mg/dl Creatinine 0.85 0.60-1.20 mg/dl Est Creatinine Clear Calc Drug Dose 34.1 ml/min Estimated GFR () 70.9 Estimated GFR (Non- 61.2 BUN/Creatinine Ratio 14.7 10-20 Random Glucose 104 70-99 mg/dl Calcium Level 8.2 8.5-10.1 mg/dl Magnesium Level 1.6 1.8-2.4 mg/dl
--- NOTE | 2017-04-18 07:21 | Surgery Progress Note ---
Surgery Progress Note Date of Service Apr 18, 2017. Subjective feeling ok, no vomiting Objective Vital Signs: Date Time Temp Pulse Resp B/P (MAP) Pulse Ox O2 Delivery O2 Flow Rate FiO2 04/18/17 04:00 Room Air 04/18/17 04:00 36.7 66 20 155/80 (105) Room Air 04/18/17 00:29 37.1 63 24 152/87 (108) 96 Room Air 04/18/17 00:00 Room Air 04/17/17 20:10 36.8 81 18 154/89 (110) 95 Room Air 04/17/17 20:00 94 Room Air 04/17/17 16:00 94 Room Air 04/17/17 15:43 36.6 61 18 159/87 (111) 94 Room Air 04/17/17 12:30 Room Air 04/17/17 11:26 36.5 60 162/84 (110) 96 04/17/17 07:45 Room Air General Appearance: no apparent distress Respiratory/Chest: no respiratory distress Abdomen: soft Laboratory Results: Results Past 24 Hours Test 04/18/17 01:09 Range/Units White Blood Count 6.68 4.8-10.8 K/uL Red Blood Count 3.92 4.2-5.4 M/uL Hemoglobin 11.8 12.0-16.0 g/dL Hematocrit 34.1 37-47 % Mean Corpuscular Volume 87.0 80-100 fL Mean Corpuscular Hemoglobin 30.1 25-34 pg Mean Corpuscular Hemoglobin Concent 34.6 32-36 g/dl Platelet Count 237 130-400 K/uL Mean Platelet Volume 10.6 7.4-10.4 fL Neutrophils (%) (Auto) 72.5 % Lymphocytes (%) (Auto) 13.0 % Monocytes (%) (Auto) 10.2 % Eosinophils (%) (Auto) 3.1 % Basophils (%) (Auto) 0.9 % Neutrophils # (Auto) 4.84 1.4-6.5 K/uL Lymphocytes # (Auto) 0.87 1.2-3.4 K/uL Monocytes # (Auto) 0.68 0.11-0.59 K/uL Eosinophils # (Auto) 0.21 0-0.5 K/uL Basophils # (Auto) 0.06 0-0.2 K/uL RDW Standard Deviation 45.0 36.4-46.3 fL RDW Coefficient of Variation 14.1 11.5-14.5 % Immature Granulocyte % (Auto) 0.3 % Immature Granulocyte # (Auto) 0.02 0.00-0.02 K/uL Sodium Level 137 136-145 mmol/L Potassium Level 3.4 3.5-5.1 mmol/L Chloride Level 105 98-107 mmol/L Carbon Dioxide Level 24 21-32 mmol/L Anion Gap 8.0 3-11 mmol/L Blood Urea Nitrogen 13 7-18 mg/dl Creatinine 0.85 0.60-1.20 mg/dl Est Creatinine Clear Calc Drug Dose 34.1 ml/min Estimated GFR () 70.9 Estimated GFR (Non- 61.2 BUN/Creatinine Ratio 14.7 10-20 Random Glucose 104 70-99 mg/dl Calcium Level 8.2 8.5-10.1 mg/dl Magnesium Level 1.6 1.8-2.4 mg/dl Assessment & Plan 04/18/17- plan is for martha barone Mon 04/20- try some clear liquids NPO after MN Thursday. Cont supportive care
[2017-04-18] MEDS: D5W AND 1/2NSS + 20MEQ KCL 1,000 ML IV SCH ×2 (07:36→21:16)
[2017-04-18] MEDS: ASPIRIN 81 MG ECTAB PO SCH (07:40)
[2017-04-18] MEDS: DOCUSATE SODIUM 100 MG CAP PO SCH ×2 (07:40→21:17)
[2017-04-18] MEDS: HEPARIN SOD 5000 UNIT/0.5 ML CARP SQ SCH ×2 (07:47→21:23)
[2017-04-18] MEDS: TRAMADOL HCL 50 MG TAB PO PRN (09:18)
[2017-04-18] MEDS: ONDANSETRON INJ 2 MG/ML 2 ML VIAL IV PRN ×2 (12:01→21:23)
--- NOTE | 2017-04-18 13:10 | Progress Note ---
Internal Med Progress Note Date of Service: Apr 18, 2017. Provider Documentation: SUBJECTIVE: Seen and examined at bedside. Offers no complaints Denies Nausea, vomiting, Abdominal pain Also denies SOB, chest pain Planned for cholecystectomy on Thursday Has 6 seconds run of VT overnight but was asymptomatic OBJECTIVE: Vital Signs-as noted below General Appearance:Moderately built and nourished, no apparent distress Head: normocephalic, Atraumatic Eyes: normal inspection, EOMI, PERRL Neck: supple, Trachea midline Respiratory/Chest: Normal breath sounds, CTA Cardiovascular: S1, S2, No murmur Abdomen/GI:Soft, Non tender, Bowel sounds present Extremities/Musculoskelatal:normal inspection, no edema Neurologic/Psych:grossly no focal neurological deficits Skin:normal color,warm Lab data as noted below. ASSESSMENT & PLAN: Acute cholecystitis with biliary ductal obstruction Abdomen USD: suggestive of acute cholecystis and biliary obstruction Clear liquid diet NPO after midnight on thursday IV fluids Continue Ceftriaxone and Flagyl KUB:Nonobstructive bowel pattern Appreciate Surgery input Avoid Hepatotoxic meds Planned for surgery on Thursday LFTs improving UTI: Urine culture:Proteus Continue ceftriaxone Day # 3 NSVT: Had a short run of VT overnight. Patient asymptomatic Electrolytes replaced Monitor on Tele Update ECHO Cardiology consulted BB started Currently in Sinus Encephalopathy: Likely metabolic from infection H/O baseline dementia CT head:No acute intracranial findings Resolved WILNER DEHYDRATION Clinically dry, Cr 1.3 on presentation Continue IV fluids Cr is back to baseline MILDLY ELEVATED TROPONIN Denies chest pain; EKG- no obvious ischemic change Monitor in telemetry Troponin trended down AMBULATORY DYSFUNCTION Fall precautions PT/OT GERD Continue PPI DVT Px Heparin SQ CODE STATUS DNR per my discussion with patient's son Miki Cutler at bedside who is POA. . DISPOSITION May need placement; geriatric social work professor consulted Monitor in Tele for now Vital Signs: Date Time Temp Pulse Resp B/P (MAP) Pulse Ox O2 Delivery O2 Flow Rate FiO2 04/18/17 11:53 36.6 54 20 160/83 (108) 97 Room Air 04/18/17 08:03 36.7 56 22 162/83 (109) 96 Room Air 04/18/17 08:00 96 Room Air 04/18/17 04:00 Room Air 04/18/17 04:00 36.7 66 20 155/80 (105) Room Air 04/18/17 00:29 37.1 63 24 152/87 (108) 96 Room Air 04/18/17 00:00 Room Air 04/17/17 20:10 36.8 81 18 154/89 (110) 95 Room Air 04/17/17 20:00 94 Room Air 04/17/17 16:00 94 Room Air 04/17/17 15:43 36.6 61 18 159/87 (111) 94 Room Air Lab Results: Results Past 24 Hours Test 04/18/17 01:09 Range/Units White Blood Count 6.68 4.8-10.8 K/uL Red Blood Count 3.92 4.2-5.4 M/uL Hemoglobin 11.8 12.0-16.0 g/dL Hematocrit 34.1 37-47 % Mean Corpuscular Volume 87.0 80-100 fL Mean Corpuscular Hemoglobin 30.1 25-34 pg Mean Corpuscular Hemoglobin Concent 34.6 32-36 g/dl Platelet Count 237 130-400 K/uL Mean Platelet Volume 10.6 7.4-10.4 fL Neutrophils (%) (Auto) 72.5 % Lymphocytes (%) (Auto) 13.0 % Monocytes (%) (Auto) 10.2 % Eosinophils (%) (Auto) 3.1 % Basophils (%) (Auto) 0.9 % Neutrophils # (Auto) 4.84 1.4-6.5 K/uL Lymphocytes # (Auto) 0.87 1.2-3.4 K/uL Monocytes # (Auto) 0.68 0.11-0.59 K/uL Eosinophils # (Auto) 0.21 0-0.5 K/uL Basophils # (Auto) 0.06 0-0.2 K/uL RDW Standard Deviation 45.0 36.4-46.3 fL RDW Coefficient of Variation 14.1 11.5-14.5 % Immature Granulocyte % (Auto) 0.3 % Immature Granulocyte # (Auto) 0.02 0.00-0.02 K/uL Sodium Level 137 136-145 mmol/L Potassium Level 3.4 3.5-5.1 mmol/L Chloride Level 105 98-107 mmol/L Carbon Dioxide Level 24 21-32 mmol/L Anion Gap 8.0 3-11 mmol/L Blood Urea Nitrogen 13 7-18 mg/dl Creatinine 0.85 0.60-1.20 mg/dl Est Creatinine Clear Calc Drug Dose 34.1 ml/min Estimated GFR () 70.9 Estimated GFR (Non- 61.2 BUN/Creatinine Ratio 14.7 10-20 Random Glucose 104 70-99 mg/dl Calcium Level 8.2 8.5-10.1 mg/dl Magnesium Level 1.6 1.8-2.4 mg/dl
[2017-04-18] MEDS ORDERED: MAGNESIUM SULFATE 1GM / D5W 1 GM in PREMIXED IN D5W 100 ML IV ONE (13:30)
[2017-04-18] MEDS ORDERED: POTASSIUM CHLORIDE 10 MEQ TABCR PO ONE (16:00)
--- NOTE | 2017-04-18 16:29 | CARDIOLOGY CONSULTATION ---
DATE OF CONSULTATION: 04/18/2017 DATE OF CONSULTATION: 04/18/2017 REFERRING PHYSICIAN: Dr. Eric Thakur. REASON FOR CONSULTATION: Premature ventricular complexes, nonsustained ventricular tachycardia, preoperative risk stratification. HISTORY OF PRESENT ILLNESS: Ms. Cutler is an 87-year-old female with a history of underlying dementia. She is a poor historian. History was taken from the patient, son at bedside, and the chart. The patient presented to the Emergency Room on 04/15/2017 with confusion. She was initially diagnosed with urinary tract infection. Subsequent lab testing demonstrated abnormal liver function testing. A right upper quadrant ultrasound was performed demonstrating evidence of a distended gallbladder and possible acute cholecystitis. Her LFTs have trended down. She is tentatively planned for a cholecystectomy on Thursday. Telemetry demonstrating occasional premature ventricular complexes as well as an isolated 6 beat barb of nonsustained ventricular tachycardia occurring at approximately 11:40 p.m. on 04/17/2017. There were no associated symptoms. Basic metabolic panel performed this morning demonstrates hypokalemia and hypomagnesemia. The patient was prescribed low dose beta-chalino therapy. Her resting 2D transthoracic echo is pending. The patient currently resting comfortably. Denies abdominal or chest discomfort. Denies previous history of coronary disease, congestive heart failure, unstable dysrhythmia, decline in functional capacity, or rheumatic fever as a child. There is no prior cardiac testing on record. Son is present at the bedside. Offers no other concerns at this time. REVIEW OF SYSTEMS: The pertinent positives are noted above. A comprehensive 10-system review is otherwise negative. PAST MEDICAL HISTORY: 1. Dementia. 2. GERD. 3. PVCs. 4. Osteoporosis. PAST SURGICAL HISTORY: 1. Shoulder replacement. 2. Right hip replacement in 2013. FAMILY HISTORY: Negative for premature CAD or sudden cardiac , however noncontributory given patient's advanced age. SOCIAL HISTORY: Lifelong nonsmoker. She is and lives with her son. ALLERGIES: No known drug allergies. OUTPATIENT MEDICATIONS: 1. Aspirin 81 mg daily. 2. Calcium with vitamin D 600 mg daily. 3. Colace 100 mg twice daily. 4. Multivitamin daily. 5. Omeprazole 20 mg daily. 6. Nitrostat as needed. 7. MiraLax as needed. 8. Dulcolax as needed. ECG on admission demonstrates sinus rhythm with nonspecific ST and T-wave abnormality. Repeat ECGs performed throughout hospitalization are unchanged. LABORATORY DATA: Initial troponin 0.105 with a repeat troponin 0.099. Her CK and CK-MB is not elevated. Her creatinine is 1.3 on admission which subsequently trended down to 0.85 with hydration. White blood cell count is 6.68, hemoglobin is 11.8, platelet count is 237. Urine culture is positive for Proteus mirabilis. PHYSICAL EXAMINATION: VITAL SIGNS: Temperature is 36.6 degrees Celsius, pulse 54 beats per minute and regular, respiratory rate is 20 breaths per minute, blood pressure 160/83, respiratory rate is 20 breaths per minute, SAO2 97% on room air. GENERAL: NAD, poor dentition, oriented to person and place. HEAD, EYES, EARS, NOSE, AND THROAT: Mucous membranes are dry. No scleral icterus. Conjunctivae pink. NECK: Supple. There is no JVD or HJR. No carotid bruit. HEART: Regular with a normal S1 and S2. There is no murmur, rub, or gallop. LUNGS: Clear without rales, rhonchi or wheeze. ABDOMEN: Soft and nontender. No rebound or guarding. Normal bowel sounds. EXTREMITIES: Warm and dry without clubbing, cyanosis, or edema. NEUROLOGIC EXAMINATION: Demonstrates no focal deficit. FINAL IMPRESSION: 1. An 87-year-old female considered moderate perioperative cardiovascular risk for cholecystectomy. 2. Occasional PVCs with isolated barb of nonsustained ventricular tachycardia recorded last night. Likely secondary to electrolyte derangement including hypokalemia and hypomagnesemia. 3. Acute cholecystitis with biliary duct obstruction. 4. Urinary tract infection with proteus status post ceftriaxone treatment x3 days. 5. Metabolic encephalopathy secondary to urinary tract infection and cholecystitis. 6. Acute kidney injury secondary to dehydration -- resolving with IV hydration. 7. Mildly elevated troponin, not indicative of acute coronary syndrome. PLAN AND RECOMMENDATIONS: Resting 2D transthoracic echo will be performed to assess baseline left ventricular function and exclude the presence of significant valvular disease. Agree with low dose beta-chalino therapy which has been initiated today. Will continue telemetry monitoring. Potassium and magnesium should be supplemented as needed. Currently, there is no cardiovascular contraindication to cholecystectomy which appears to be necessary at this time given review of imaging and lab studies. The risks of surgery were discussed at length with both the patient and her son who are agreeable to proceed. Thank you for allowing me to take part in the care of your patient. MEGHNA
--- NOTE | 2017-04-18 16:41 | ECHOCARDIOGRAM REPORT ---
*NOTICE TO RECEIVING [employer]PUBL[employer] AGENCY This information is strictly Confidential and protected under [place] law. [place] law prohibits you from making any further disclosure of this information unless further disclosure is expressly permitted by the written consent of the person to whom it pertains or is authorized by law. A general authorization for the release of medical or other information is not sufficient for this purpose. Hospital accepts no responsibility if the information is made available to any other person, INCLUDING THE PATIENT. Interpretation Summary * Name: CHARMAINE MEJIA Study Date: 04/18/2017 03:33 PM BP: 160/83 mmHg * Patient Location: [facility]\S\N286\S\1 HR: 54 * : 1930 (M/d/yyyy) Gender: Female Height: 57 in * Age: 87 yrs Ethnicity: [place] Weight: 136 lb * Ordering Physician: Eric Thakur * Referring Physician: Self, Referred * Performed By: Prisca Stevenson RDCS * * Reason For Study: NSVT * BSA: 1.5 m2 * The study was technically adequate. * Compared to prior study, there is no significant change. * -- Conclusions -- * Ejection Fraction = 55-60%. * There is mild concentric left ventricular hypertrophy. * Mild basal posterior wall hypokinesis, otherwise, normal wall motion. * Grade I diastolic dysfunction, (abnormal relaxation pattern). * Aortic valve sclerosis mild, without significant aortic valvular stenosis. * There is mild mitral regurgitation. * There is trace tricuspid regurgitation. * Doppler findings do not suggest pulmonary hypertension. Procedure Details * A complete two-dimensional transthoracic echocardiogram was performed (2D, M-mode, Doppler and color flow Doppler). Left Ventricle * The left ventricle is normal in size. * There is mild concentric left ventricular hypertrophy. * Ejection Fraction = 55-60%. * Left ventricular systolic function is normal. * Mild basal posterior wall hypokinesis, otherwise, normal wall motion. Right Ventricle * The right ventricle is normal size. * The right ventricular systolic function is normal as assessed by tricuspid annular plane systolic excursion (TAPSE) (normal >1.5 cm). Atria * The left atrial size is normal. * Right atrial size is normal. * There is no evidence of atrial septal defect, but resolution does not allow assessment for a patent foramen ovale. Mitral Valve * There is moderate mitral annular calcification. * There is no mitral valve stenosis. * There is mild mitral regurgitation. Tricuspid Valve * The tricuspid valve is normal. * There is no tricuspid stenosis. * There is trace tricuspid regurgitation. * Doppler findings do not suggest pulmonary hypertension. Aortic Valve * The aortic valve is trileaflet. * Aortic valve sclerosis mild, without significant aortic valvular stenosis. * Aortic stenosis is absent. * There is no significant aortic regurgitation. Pulmonic Valve * The pulmonary valve is not well seen, but the Doppler examination is normal without significant regurgitation or stenosis. Great Vessels * The aortic root is normal size. Pericardium/Pleural * There is no pericardial effusion. Great Vessels * Normal inferior vena cava diameter and respiratory variation suggests normal central venous pressure. Left Ventricular Diastolic Function * Grade I diastolic dysfunction, (abnormal relaxation pattern). MMode 2D Measurements and Calculations IVSd 1.1 cm LVIDd 3.3 cm LVIDs 2.3 cm LVPWd 1.0 cm IVS/LVPW 1.1 FS 29.6 % EDV(Teich) 45.2 ml ESV(Teich) 19.1 ml EF(Teich) 57.8 % EDV(cubed) 37.0 ml ESV(cubed) 12.9 ml EF(cubed) 65.0 % LV mass(C)d 104.3 grams LV mass(C)dI 68.3 grams/m\S\2 SV(Teich) 26.1 ml SI(Teich) 17.1 ml/m\S\2 SV(cubed) 24.1 ml SI(cubed) 15.8 ml/m\S\2 Ao root diam 2.6 cm Ao root area 5.4 cm\S\2 ACS 1.2 cm LA dimension 1.9 cm asc Aorta Diam 2.9 cm LA/Ao 0.71 LVOT diam 1.9 cm LVOT area 2.9 cm\S\2 LVAd ap4 16.2 cm\S\2 LVLd ap4 5.5 cm EDV(MOD-sp4) 38.9 ml EDV(sp4-el) 40.6 ml LVAs ap4 10.2 cm\S\2 LVLs ap4 4.9 cm ESV(MOD-sp4) 18.0 ml ESV(sp4-el) 18.2 ml EF(MOD-sp4) 53.7 % EF(sp4-el) 55.2 % LVAd ap2 16.0 cm\S\2 LVLd ap2 5.8 cm EDV(MOD-sp2) 36.6 ml EDV(sp2-el) 37.1 ml LVAs ap2 10.3 cm\S\2 LVLs ap2 5.2 cm ESV(MOD-sp2) 18.2 ml ESV(sp2-el) 17.4 ml EF(MOD-sp2) 50.4 % EF(sp2-el) 53.1 % LVLd %diff 5.7 % EDV(MOD-bp) 38.9 ml LVLs %diff 5.7 % ESV(MOD-bp) 18.5 ml EF(MOD-bp) 52.5 % SV(MOD-sp4) 20.9 ml SI(MOD-sp4) 13.7 ml/m\S\2 SV(MOD-sp2) 18.5 ml SI(MOD-sp2) 12.1 ml/m\S\2 SV(MOD-bp) 20.4 ml SI(MOD-bp) 13.4 ml/m\S\2 SV(sp4-el) 22.4 ml SI(sp4-el) 14.7 ml/m\S\2 SV(sp2-el) 19.7 ml SI(sp2-el) 12.9 ml/m\S\2 Doppler Measurements and Calculations MV E max denys 87.3 cm/sec MV A max denys 116.4 cm/sec MV E/A 0.75 MV dec time 0.25 sec Ao V2 max 120.8 cm/sec Ao max PG 5.8 mmHg Ao max PG (full) 3.3 mmHg JORGE(V,A) 1.9 cm\S\2 JORGE(V,D) 1.9 cm\S\2 LV V1 max PG 2.5 mmHg LV V1 max 79.1 cm/sec PA V2 max 75.6 cm/sec PA max PG 2.3 mmHg PA acc slope 325.0 cm/sec\S\2 PA acc time 0.14 sec TR max denys 258.4 cm/sec PA pr(Accel) 17.2 mmHg
[2017-04-18] MEDS: RANITIDINE IV 50 MG in DEXTROSE 5% 100ML 100 ML IV SCH (17:00)
[2017-04-18] MEDS: CEFTRIAXONE SOD INJ 1 GM in DEXTROSE 5% ADD-VANTAGE 50ML 50 ML IV SCH (17:00)
[2017-04-18] MEDS: METOPROLOL TARTRATE 25 MG TAB PO SCH (21:19)
[2017-04-19] VITALS (12 sets, daily range): BP systolic 135–193; BP diastolic 72–95; PULSE 56–72; TEMP 36.5–37; O2SAT 94–97
[2017-04-19] MEDS: METRONIDAZOLE / NSS 500 MG in PREMIXED NSS 100 ML IV SCH ×4 (00:11→23:51)
--- NOTE | 2017-04-19 06:57 | Surgery Progress Note ---
Surgery Progress Note Date of Service Apr 19, 2017. Subjective VSS Objective Vital Signs: Date Time Temp Pulse Resp B/P (MAP) Pulse Ox O2 Delivery O2 Flow Rate FiO2 04/19/17 04:27 36.8 56 18 138/79 (98) 95 Room Air 04/19/17 04:00 96 Room Air 04/19/17 00:00 96 Room Air 04/18/17 23:28 36.6 58 18 143/84 (103) 92 Room Air 04/18/17 20:00 96 Room Air 04/18/17 19:44 36.4 70 18 174/97 (122) 96 Room Air 04/18/17 16:00 94 Room Air 04/18/17 15:37 36.5 59 20 162/85 (110) 96 Room Air 04/18/17 12:00 94 Room Air 04/18/17 11:53 36.6 54 20 160/83 (108) 97 Room Air 04/18/17 08:03 36.7 56 22 162/83 (109) 96 Room Air 04/18/17 08:00 96 Room Air Laboratory Results: Results Past 24 Hours Test 04/19/17 04:44 Range/Units Assessment & Plan 04/19/17- pt is for cholecystectomy tomorrow. 04/18/17- plan is for lap lizabeth Mon 04/20- try some clear liquids NPO after MN Thursday. Cont supportive care 04/18/17- plan is for lap lizabeth Mon 04/20- try some clear liquids NPO after MN Thursday. Cont supportive care
[2017-04-19] MEDS: ASPIRIN 81 MG ECTAB PO SCH (07:46)
[2017-04-19] MEDS: DOCUSATE SODIUM 100 MG CAP PO SCH ×2 (07:46→21:18)
[2017-04-19] MEDS: D5W AND 1/2NSS + 20MEQ KCL 1,000 ML IV SCH (07:46)
[2017-04-19] MEDS: METOPROLOL TARTRATE 25 MG TAB PO SCH ×2 (07:47→21:19)
[2017-04-19] MEDS: HEPARIN SOD 5000 UNIT/0.5 ML CARP SQ SCH ×2 (07:52→21:23)
[2017-04-19 07:53] LABS: BASO ABS # 0.05 K/uL (0-0.2); COMPLETE YES; EOS % 5.1 %; HEMATOCRIT 35.7 % (37-47); IG% 0.4 %; LYMPH ABS # 0.92 K/uL (1.2-3.4); MEAN CELL VOLUME 87.1 fL (80-100); MEAN CORPUSCULAR HEMOGLOBIN 29.5 pg (25-34); MEAN CORPUSCULAR HGB CONC 33.9 g/dl (32-36); MEAN PLATELET VOLUME 11.2 fL (7.4-10.4); NEUT % 64.5 %; PLATELET COUNT 264 K/uL (130-400); WHITE BLOOD COUNT 5.11 K/uL (4.8-10.8)
[2017-04-19 08:32] LABS: BUN/CREATININE RATIO 6.1 (10-20); CALCIUM 8.2 mg/dl (8.5-10.1); CREATININE 0.9 mg/dl (0.60-1.20); MAGNESIUM 1.7 mg/dl (1.8-2.4); POTASSIUM 4.1 mmol/L (3.5-5.1)
[2017-04-19] MEDS: ONDANSETRON INJ 2 MG/ML 2 ML VIAL IV PRN (12:37)
--- NOTE | 2017-04-19 13:05 | Progress Note ---
Internal Med Progress Note Date of Service: Apr 19, 2017. Provider Documentation: SUBJECTIVE: Seen and examined at bedside. Has nausea today Denies chest pain, SOB, Abdominal pain Planned for cholecystectomy tomorrow OBJECTIVE: Vital Signs-as noted below General Appearance:Moderately built and nourished, no apparent distress Head: normocephalic, Atraumatic Eyes: normal inspection, EOMI, PERRL Neck: supple, Trachea midline Respiratory/Chest: Normal breath sounds, CTA Cardiovascular: S1, S2, No murmur Abdomen/GI:Soft, Non tender, Bowel sounds present Extremities/Musculoskelatal:normal inspection, no edema Neurologic/Psych:grossly no focal neurological deficits Skin:normal color,warm Lab data as noted below. ASSESSMENT & PLAN: Acute cholecystitis with biliary ductal obstruction Abdomen USD: suggestive of acute cholecystis and biliary obstruction Clear liquid diet NPO after midnight today for surgery tomorrow IV fluids Continue Ceftriaxone and Flagyl KUB:Nonobstructive bowel pattern Appreciate Surgery input Avoid Hepatotoxic meds LFTs improving UTI: Urine culture:Proteus Continue ceftriaxone Day # 4 NSVT: Had a short run of VT overnight. Patient asymptomatic Monitor electrolytes ECHO as below Appreciate Cardiology Input Continue BB Encephalopathy: Likely metabolic from infection H/O baseline dementia CT head:No acute intracranial findings Resolved WILNER DEHYDRATION Clinically dry, Cr 1.3 on presentation Continue IV fluids Cr is back to baseline MILDLY ELEVATED TROPONIN Denies chest pain; EKG- no obvious ischemic change Monitor in telemetry Troponin trended down AMBULATORY DYSFUNCTION Fall precautions PT/OT GERD Continue PPI DVT Px Heparin SQ CODE STATUS DNR per my discussion with patient's son Miki Cutler at bedside who is POA. . DISPOSITION May need placement; director social consulted Monitor in Tele for now PROCEDURES: ECHO: * Ejection Fraction = 55-60%. * There is mild concentric left ventricular hypertrophy. * Mild basal posterior wall hypokinesis, otherwise, normal wall motion. * Grade I diastolic dysfunction, (abnormal relaxation pattern). * Aortic valve sclerosis mild, without significant aortic valvular stenosis. * There is mild mitral regurgitation. * There is trace tricuspid regurgitation. * Doppler findings do not suggest pulmonary hypertension. Vital Signs: Date Time Temp Pulse Resp B/P (MAP) Pulse Ox O2 Delivery O2 Flow Rate FiO2 04/19/17 12:24 36.6 58 18 162/79 (106) 97 Room Air 04/19/17 12:00 95 Room Air 04/19/17 08:00 94 Room Air 04/19/17 07:54 36.5 60 18 135/86 (102) 94 Room Air 04/19/17 04:27 36.8 56 18 138/79 (98) 95 Room Air 04/19/17 04:00 96 Room Air 04/19/17 00:00 96 Room Air 04/18/17 23:28 36.6 58 18 143/84 (103) 92 Room Air 04/18/17 20:00 96 Room Air 04/18/17 19:44 36.4 70 18 174/97 (122) 96 Room Air 04/18/17 16:00 94 Room Air 04/18/17 15:37 36.5 59 20 162/85 (110) 96 Room Air Lab Results: Results Past 24 Hours Test 04/19/17 07:31 Range/Units White Blood Count 5.11 4.8-10.8 K/uL Red Blood Count 4.10 4.2-5.4 M/uL Hemoglobin 12.1 12.0-16.0 g/dL Hematocrit 35.7 37-47 % Mean Corpuscular Volume 87.1 80-100 fL Mean Corpuscular Hemoglobin 29.5 25-34 pg Mean Corpuscular Hemoglobin Concent 33.9 32-36 g/dl Platelet Count 264 130-400 K/uL Mean Platelet Volume 11.2 7.4-10.4 fL Neutrophils (%) (Auto) 64.5 % Lymphocytes (%) (Auto) 18.0 % Monocytes (%) (Auto) 11.0 % Eosinophils (%) (Auto) 5.1 % Basophils (%) (Auto) 1.0 % Neutrophils # (Auto) 3.30 1.4-6.5 K/uL Lymphocytes # (Auto) 0.92 1.2-3.4 K/uL Monocytes # (Auto) 0.56 0.11-0.59 K/uL Eosinophils # (Auto) 0.26 0-0.5 K/uL Basophils # (Auto) 0.05 0-0.2 K/uL RDW Standard Deviation 45.1 36.4-46.3 fL RDW Coefficient of Variation 14.2 11.5-14.5 % Immature Granulocyte % (Auto) 0.4 % Immature Granulocyte # (Auto) 0.02 0.00-0.02 K/uL Sodium Level 135 136-145 mmol/L Potassium Level 4.1 3.5-5.1 mmol/L Chloride Level 105 98-107 mmol/L Carbon Dioxide Level 25 21-32 mmol/L Anion Gap 5.0 3-11 mmol/L Blood Urea Nitrogen 6 7-18 mg/dl Creatinine 0.90 0.60-1.20 mg/dl Est Creatinine Clear Calc Drug Dose 32.5 ml/min Estimated GFR () 66.2 Estimated GFR (Non- 57.1 BUN/Creatinine Ratio 6.1 10-20 Random Glucose 125 70-99 mg/dl Calcium Level 8.2 8.5-10.1 mg/dl Magnesium Level 1.7 1.8-2.4 mg/dl
[2017-04-19] MEDS: MAGNESIUM SULFATE 1GM / D5W 1 GM in PREMIXED IN D5W 100 ML IV SCH ×2 (14:41→15:56)
[2017-04-19] MEDS: CEFTRIAXONE SOD INJ 1 GM in DEXTROSE 5% ADD-VANTAGE 50ML 50 ML IV SCH (15:57)
[2017-04-19] MEDS: RANITIDINE IV 50 MG in DEXTROSE 5% 100ML 100 ML IV SCH (16:04)
[2017-04-20] VITALS (12 sets, daily range): BP systolic 119–159; BP diastolic 74–86; PULSE 56–75; TEMP 36.4–37.1; O2SAT 91–99
[2017-04-20] MEDS: D5W AND 1/2NSS + 20MEQ KCL 1,000 ML IV SCH ×2 (01:13→22:10)
[2017-04-20] MEDS: ONDANSETRON INJ 2 MG/ML 2 ML VIAL IV PRN (06:28)
[2017-04-20 06:56] LABS: BUN/CREATININE RATIO 4.6 (10-20); CALCIUM 8.3 mg/dl (8.5-10.1); CREATININE 0.9 mg/dl (0.60-1.20); POTASSIUM 3.9 mmol/L (3.5-5.1)
[2017-04-20] MEDS ORDERED: EpHEDrine SULFATE INJ 50 MG/ML AMP IV PRN (07:45)
[2017-04-20] MEDS ORDERED: FENTANYL CITRATE INJ 50 MCG/1 ML 2 ML VIAL IV PRN (07:45)
[2017-04-20] MEDS ORDERED: ATROPINE SULFATE 0.1 MG/ML 5ML SYR IV PRN (07:45)
[2017-04-20] MEDS ORDERED: ONDANSETRON INJ 2 MG/ML 2 ML VIAL IV PRN (07:45)
--- NOTE | 2017-04-20 07:56 | Progress Note ---
Internal Med Progress Note Date of Service: Apr 20, 2017. Provider Documentation: SUBJECTIVE: Seen and examined at bedside. Reports nausea earlier today but no vomiting Denies chest pain, SOB, Abdominal pain Planned for cholecystectomy today Comfortable lying in bed OBJECTIVE: Vital Signs-as noted below General Appearance:Moderately built and nourished, no apparent distress Head: normocephalic, Atraumatic Eyes: normal inspection, EOMI, PERRL Neck: supple, Trachea midline Respiratory/Chest: Normal breath sounds, CTA Cardiovascular: S1, S2, No murmur Abdomen/GI:Soft, Non tender, Bowel sounds present Extremities/Musculoskelatal:normal inspection, no edema Neurologic/Psych:grossly no focal neurological deficits Skin:normal color,warm Lab data as noted below. ASSESSMENT & PLAN: Acute cholecystitis with biliary ductal obstruction Abdomen USD: suggestive of acute cholecystis and biliary obstruction NPO as planned for surgery IV fluids Continue Ceftriaxone and Flagyl Appreciate Surgery input Avoid Hepatotoxic meds LFTs improving UTI: Urine culture:Proteus Continue ceftriaxone Day # 5 NSVT: Had a short run of VT overnight. Patient asymptomatic Monitor electrolytes ECHO as below Appreciate Cardiology Input Continue BB Encephalopathy: Likely metabolic from infection H/O baseline dementia CT head:No acute intracranial findings Resolved WILENR DEHYDRATION Clinically dry, Cr 1.3 on presentation Continue IV fluids Cr is back to baseline AMBULATORY DYSFUNCTION Fall precautions PT/OT GERD Continue PPI DVT Px Heparin SQ CODE STATUS DNR per my discussion with patient's son Miki Cutler at bedside who is POA. . DISPOSITION May need placement; social welfare research worker consulted Monitor in Tele PROCEDURES: ECHO: * Ejection Fraction = 55-60%. * There is mild concentric left ventricular hypertrophy. * Mild basal posterior wall hypokinesis, otherwise, normal wall motion. * Grade I diastolic dysfunction, (abnormal relaxation pattern). * Aortic valve sclerosis mild, without significant aortic valvular stenosis. * There is mild mitral regurgitation. * There is trace tricuspid regurgitation. * Doppler findings do not suggest pulmonary hypertension. Vital Signs: Date Time Temp Pulse Resp B/P (MAP) Pulse Ox O2 Delivery O2 Flow Rate FiO2 04/20/17 07:17 37.0 56 18 153/84 (107) 93 Room Air 04/20/17 04:00 Room Air 04/20/17 03:54 37.1 56 16 155/84 (107) 95 Room Air 04/20/17 00:00 Room Air 04/19/17 23:15 36.8 64 18 167/95 (119) 94 Room Air 04/19/17 21:15 62 148/85 (106) 04/19/17 20:01 37.0 72 18 159/87 (111) 95 Room Air 04/19/17 20:00 Room Air 04/19/17 16:05 36.8 59 18 193/72 (112) 96 Room Air 04/19/17 16:00 95 Room Air 04/19/17 12:24 36.6 58 18 162/79 (106) 97 Room Air 04/19/17 12:00 95 Room Air 04/19/17 08:00 94 Room Air 04/19/17 07:54 36.5 60 18 135/86 (102) 94 Room Air Lab Results: Results Past 24 Hours Test 04/20/17 06:05 Range/Units Sodium Level 139 136-145 mmol/L Potassium Level 3.9 3.5-5.1 mmol/L Chloride Level 105 98-107 mmol/L Carbon Dioxide Level 26 21-32 mmol/L Anion Gap 8.0 3-11 mmol/L Blood Urea Nitrogen 4 7-18 mg/dl Creatinine 0.90 0.60-1.20 mg/dl Est Creatinine Clear Calc Drug Dose 32.5 ml/min Estimated GFR () 66.2 Estimated GFR (Non- 57.1 BUN/Creatinine Ratio 4.6 10-20 Random Glucose 112 70-99 mg/dl Calcium Level 8.3 8.5-10.1 mg/dl Magnesium Level 2.0 1.8-2.4 mg/dl Total Bilirubin 1.3 0.2-1 mg/dl Direct Bilirubin 0.9 0-0.2 mg/dl Aspartate Amino Transf (AST/SGOT) 74 15-37 U/L Alanine Aminotransferase (ALT/SGPT) 56 12-78 U/L Alkaline Phosphatase 520 45-117 U/L Total Protein 6.1 6.4-8.2 gm/dl Albumin 2.3 3.4-5.0 gm/dl
[2017-04-20] MEDS: METRONIDAZOLE / NSS 500 MG in PREMIXED NSS 100 ML IV SCH ×3 (08:21→23:22)
[2017-04-20] MEDS: METOPROLOL TARTRATE 25 MG TAB PO SCH ×2 (09:00→20:25)
[2017-04-20] MEDS: HEPARIN SOD 5000 UNIT/0.5 ML CARP SQ SCH ×2 (09:00→21:00)
[2017-04-20] MEDS: ASPIRIN 81 MG ECTAB PO SCH (09:00)
[2017-04-20] MEDS: DOCUSATE SODIUM 100 MG CAP PO SCH ×2 (09:00→20:24)
[2017-04-20] MEDS ORDERED: ROCURONIUM BROMIDE 10 MG/ML 5 ML VIAL IV ONE (12:37)
[2017-04-20] MEDS ORDERED: LIDOCAINE HCL 2% 2 ML VIAL (20MG/ML) ONE (12:37)
[2017-04-20] MEDS ORDERED: FENTANYL CITRATE INJ 50 MCG/1 ML 2 ML VIAL ONE ×3 (12:37→16:49)
[2017-04-20] MEDS ORDERED: PROPOFOL IV EMULSION 10 MG/ML 20 ML VIAL IV ONE (12:37)
[2017-04-20] MEDS ORDERED: ONDANSETRON INJ 2 MG/ML 2 ML VIAL ONE (12:37)
[2017-04-20] MEDS ORDERED: DEXAMETHASONE SOD INJ 4 MG/ML VIAL ONE (12:37)
[2017-04-20] MEDS ORDERED: CEFAZOLIN SOD 1 GM VIAL ONE ×2 (12:45→13:55)
[2017-04-20] MEDS ORDERED: HEPARIN SOD (PORCINE) 1000 UNIT/ML 10 ML VIAL ONE (12:45)
[2017-04-20] MEDS ORDERED: CONRAY 60% 50 ML VIAL ONE (12:45)
[2017-04-20] MEDS ORDERED: BUPIVACAINE 0.5 % 5 MG/1 ML MPF 30ML VIAL ONE (12:46)
--- NOTE | 2017-04-20 12:57 | Surgery Progress Note ---
Surgery Progress Note Date of Service Apr 20, 2017. Subjective + feeling well, No complaints Objective Vital Signs: Date Time Temp Pulse Resp B/P (MAP) Pulse Ox O2 Delivery O2 Flow Rate FiO2 04/20/17 11:14 36.8 61 18 159/86 (110) 95 Room Air 04/20/17 08:00 93 Room Air 04/20/17 07:17 37.0 56 18 153/84 (107) 93 Room Air 04/20/17 04:00 Room Air 04/20/17 03:54 37.1 56 16 155/84 (107) 95 Room Air 04/20/17 00:00 Room Air 04/19/17 23:15 36.8 64 18 167/95 (119) 94 Room Air 04/19/17 21:15 62 148/85 (106) 04/19/17 20:01 37.0 72 18 159/87 (111) 95 Room Air 04/19/17 20:00 Room Air 04/19/17 16:05 36.8 59 18 193/72 (112) 96 Room Air 04/19/17 16:00 95 Room Air Abdomen: normal bowel sounds, non distended, soft Laboratory Results: Results Past 24 Hours Test 04/20/17 06:05 Range/Units Sodium Level 139 136-145 mmol/L Potassium Level 3.9 3.5-5.1 mmol/L Chloride Level 105 98-107 mmol/L Carbon Dioxide Level 26 21-32 mmol/L Anion Gap 8.0 3-11 mmol/L Blood Urea Nitrogen 4 7-18 mg/dl Creatinine 0.90 0.60-1.20 mg/dl Est Creatinine Clear Calc Drug Dose 32.5 ml/min Estimated GFR () 66.2 Estimated GFR (Non- 57.1 BUN/Creatinine Ratio 4.6 10-20 Random Glucose 112 70-99 mg/dl Calcium Level 8.3 8.5-10.1 mg/dl Magnesium Level 2.0 1.8-2.4 mg/dl Total Bilirubin 1.3 0.2-1 mg/dl Direct Bilirubin 0.9 0-0.2 mg/dl Aspartate Amino Transf (AST/SGOT) 74 15-37 U/L Alanine Aminotransferase (ALT/SGPT) 56 12-78 U/L Alkaline Phosphatase 520 45-117 U/L Total Protein 6.1 6.4-8.2 gm/dl Albumin 2.3 3.4-5.0 gm/dl Assessment & Plan For laparoscopic cholecystectomy today. I explained the procedure and the possible need to convert to an open procedure and the possible complications of the procedure to the patient and to her son who is co-POA and he signed the consent form.
[2017-04-20] MEDS ORDERED: PHENYLEPHRINE 100MCG/ML 5ML SYR ONE (13:59)
[2017-04-20] MEDS ORDERED: GLYCOPYRROLATE INJ 0.2 MG/ML VIAL ONE (14:42)
[2017-04-20] MEDS ORDERED: NEOSTIGMINE METHYLSULFATE 5 MG/5 ML SYR ONE (14:42)
[2017-04-20] MEDS: RANITIDINE IV 50 MG in DEXTROSE 5% 100ML 100 ML IV SCH (16:00)
--- NOTE | 2017-04-20 16:51 | DIAGNOSTIC IMAGING REPORT ---
INTRAOPERATIVE CHOLANGIOGRAM HISTORY: Post cholecystectomy. FLUOROSCOPY TIME: 42 seconds. 2 fluoroscopic spot images of the right upper quadrant.. FINDINGS: Fluoroscopy was provided for an intraoperative cholangiogram status post cholecystectomy. Contrast was injected through the cystic duct remnant. Large filling defect within the distal common bile duct consistent with a stone. There is significant dilatation of the common bile duct and intrahepatic bile ducts. Contrast extends into the small bowel. There is no intrahepatic bile duct dilatation. IMPRESSION: Fluoroscopy provided for an intraoperative cholangiogram status post cholecystectomy. Large filling defect within the distal common bile duct consistent with a stone. This results in marked dilatation of the common bile duct. Electronically signed by: Jamarcus Vargas M.D. 04/20/2017 4:50 PM Dictated Date/Time: 04/20/2017 4:49 PM
--- NOTE | 2017-04-20 17:23 | [facility] Post Operative Brief Note ---
Immediate Operative Summary Operative Date Apr 20, 2017. Pre-Operative Diagnosis Cholelithiasis Post-Operative Diagnosis same Procedure(s) Performed Laparoscopic Cholecystectomy with Cholangiogram Surgeon Dr. Hopper Operations Controller Surgeon(s) Asuncion Baca PA-C Estimated Blood Loss 20 ML Findings See dictation Specimens a. Gallbladder Drains one J-P in the subhepatic space Anesthesia General Complication(s) None Disposition Recovery Room / PACU
--- NOTE | 2017-04-20 17:58 | Anesthesiology Progress Note ---
Anesthesia Post Op Note Date & Time Apr 20, 2017 at 17:57 Vital Signs Pain Intensity: 0 Vital Signs Past 12 Hours Date Time Temp Pulse Resp B/P (MAP) Pulse Ox O2 Delivery O2 Flow Rate FiO2 04/20/17 17:47 61 16 04/20/17 17:47 61 16 96 04/20/17 17:46 61 31 96 04/20/17 17:46 61 31 04/20/17 17:45 125/62 04/20/17 17:41 62 24 97 04/20/17 17:41 62 24 04/20/17 17:40 136/63 04/20/17 17:37 36.9 63 22 136/63 97 Mask 10 04/20/17 17:36 65 21 97 04/20/17 17:36 65 21 04/20/17 17:35 138/65 04/20/17 17:31 63 19 04/20/17 17:31 63 19 98 04/20/17 17:30 140/65 04/20/17 17:26 64 24 99 04/20/17 17:26 64 24 04/20/17 17:25 65 29 04/20/17 17:25 65 29 144/68 99 04/20/17 17:21 145/72 04/20/17 17:20 69 20 100 04/20/17 17:20 69 20 04/20/17 17:15 68 23 04/20/17 17:15 68 23 151/70 99 04/20/17 17:11 148/77 04/20/17 17:10 82 23 04/20/17 17:10 36.2 81 16 148/77 (98) 99 Mask 10 04/20/17 17:10 82 23 99 04/20/17 12:00 96 Room Air 04/20/17 11:14 36.8 61 18 159/86 (110) 95 Room Air 04/20/17 08:00 93 Room Air 04/20/17 07:17 37.0 56 18 153/84 (107) 93 Room Air Notes Mental Status: alert / awake / arousable, participated in evaluation Pt Amnestic to Procedure: Yes Nausea / Vomiting: adequately controlled Pain: adequately controlled Airway Patency, RR, SpO2: stable & adequate BP & HR: stable & adequate Hydration State: stable & adequate Anesthetic Complications: no major complications apparent At baseline mental status
[2017-04-20] MEDS: MoRPHine SULFATE 2 MG/ML CARP IV PRN ×3 (19:06→23:28)
--- NOTE | 2017-04-20 22:19 | OPERATIVE REPORT ---
DATE OF OPERATION: 04/20/2017 PREOPERATIVE DIAGNOSES: Cholelithiasis, chronic cholecystitis, history of liver function test elevation. POSTOPERATIVE DIAGNOSES: Cholelithiasis, choledocholithiasis, chronic cholecystitis. PROCEDURE: Laparoscopic cholecystectomy with intraoperative cholangiogram. STAFF SURGEON: Dr. Hopper. MANAGER STONE: Alma Delia Baca PA-C. FINDINGS: The gallbladder was markedly dilated. The fundus of the gallbladder was markedly dilated. There was an angulation to the gallbladder in the junction of the body and the upper infundibulum. The cystic duct was dilated as was the common bile duct. Cholangiogram demonstrated a filling defect in the lower portion of the common bile duct. There was dilatation of the common bile duct, common hepatic duct and intrahepatic bile ducts. The configuration of the gallbladder made dissection away from the liver quite difficult. It was surrounded by peritoneal attachment. There was very little contact with the liver. The cystic artery was elongated and had multiple branches that extended through that attachment to the gallbladder. The colon was dilated as well. TECHNIQUE: The patient was given a general anesthetic and the area was prepped and draped in the usual sterile fashion. The peritoneum was identified and incised, and the introducer was placed bluntly. I did place a pursestring around the entrance site to maintain a pneumoperitoneum and that was done with a 0 Vicryl. The upper midline, midclavicular and anterior axillary introducers were placed under direct vision through small skin incisions. I had to divide attachments of the mesentery to the infundibulum of the gallbladder and those were peeled down using blunt and cautery dissection where appropriate. The duodenum was mildly adhesed to that and these adhesions were taken down with blunt dissection. No cautery was used in the vicinity of the duodenum. The infundibulum was able to be identified and it was away from the liver on the lateral and the medial sides. I then was able to dissect the infundibulum away from the liver and the cystic duct was identified and isolated and skeletonized. In dissecting the infundibulum away from the liver, the 1 portion of the cystic artery was seen posterior to the cystic duct. This was skeletonized, clamped and divided. That then allowed me to identify the cystic duct gallbladder junction with confidence. I placed a clip at the junction of the cystic duct gallbladder partially transected the cystic duct. The cholangiocatheter was placed intraluminally and the balloon was inflated. I then irrigated and there was no leaking. Cholangiogram was performed with findings as above. The cholangiocatheter was removed and the cystic duct was clipped and transection was completed. The most difficult part of the procedure was dissecting the gallbladder away from its attachments. I began working from the infundibulum superiorly but with the wide angle of the gallbladder made it difficult to separate the wall of the gallbladder. There was some thickening of the peritoneum and I had to work very meticulously in attachment by attachment. In doing so, there were branches of the cystic artery which were seen entering the gallbladder and each of these was individually clipped and divided. Eventually, I was able to work on the anterior side and divided some of those attachments and then was able to work from the fundus working proximally dividing the thickened peritoneum the gallbladder wall away. The final cystic artery attachment was clamped and divided. This required multiple changes in positioning in dividing a little flimsy attachments in order to separate the gallbladder completely. Eventually, I was able to completely separate the gallbladder. It was placed into an Endobag and brought out through the upper midline incision, which had to be increased in size in all layers in order to extract it. That was accomplished. That fascia was partially closed with interrupted 0 Vicryl and the introducer was replaced. Liver edge was elevated. There was one area of oozing from the attachment which was easily controlled with cautery. The subdiaphragmatic and subhepatic spaces were irrigated and the irrigation was removed and that was repeated until the return was clear. One of the graspers had created a hole in gallbladder and so there was some bile but this was all removed using the suction technique. The gallbladder bed of the liver was again inspected. The previously placed clips were intact. A 10 mm flat Nehemias-Rider was placed in the subhepatic space and brought out through the anterior axillary introducer site. It was secured with a 3-0 nylon. Gas was allowed to escape and the introducer was removed. The fascia of the umbilical and remainder of the fascial opening in the upper midline was closed with interrupted 0 Vicryl. The skin of all the incisions was then closed with 4-0 Monocryl in either an interrupted or running subcuticular fashion. The skin was cleansed, dried, benzoin placed, Steri-Strips applied after being anesthetized with 0.5% Marcaine. The drain dressing was placed. The estimated blood loss was 20 mL. Sponge, needle and instrument counts were correct prior to closure. The patient tolerated the surgical procedure without complication and was transferred to recovery. I attest to the content of the Intraoperative Record and any orders documented therein. Any exception s are noted below.
[2017-04-21] VITALS (12 sets, daily range): BP systolic 109–158; BP diastolic 67–85; PULSE 65–88; TEMP 36.3–36.7; O2SAT 4–95
[2017-04-21] MEDS: MoRPHine SULFATE 2 MG/ML CARP IV PRN ×4 (03:39→11:48)
[2017-04-21 05:50] LABS: HEMATOCRIT 35.4 % (37-47); MEAN CELL VOLUME 87.2 fL (80-100); MEAN CORPUSCULAR HEMOGLOBIN 29.3 pg (25-34); MEAN CORPUSCULAR HGB CONC 33.6 g/dl (32-36); MEAN PLATELET VOLUME 10.9 fL (7.4-10.4); PLATELET COUNT 271 K/uL (130-400); RED BLOOD COUNT 4.06 M/uL (4.2-5.4); WHITE BLOOD COUNT 13.37 K/uL (4.8-10.8)
[2017-04-21 06:30] LABS: BUN/CREATININE RATIO 6.8 (10-20); CALCIUM 8.1 mg/dl (8.5-10.1); MAGNESIUM 1.9 mg/dl (1.8-2.4); POTASSIUM 4.4 mmol/L (3.5-5.1)
[2017-04-21] MEDS: ASPIRIN 81 MG ECTAB PO SCH (07:43)
[2017-04-21] MEDS: METOPROLOL TARTRATE 25 MG TAB PO SCH ×2 (07:43→19:39)
[2017-04-21] MEDS: DOCUSATE SODIUM 100 MG CAP PO SCH ×2 (07:43→19:38)
[2017-04-21] MEDS: HEPARIN SOD 5000 UNIT/0.5 ML CARP SQ SCH ×2 (07:48→22:39)
[2017-04-21] MEDS: METRONIDAZOLE / NSS 500 MG in PREMIXED NSS 100 ML IV SCH ×2 (07:49→17:29)
[2017-04-21] MEDS ORDERED: INDOMETHACIN 50 MG SUPP PR ONE ×2 (08:30→14:06)
--- NOTE | 2017-04-21 08:59 | Gastrointestinal Consultation ---
Gastrointestinal Consultation Date of Consultation: Apr 21, 2017 Attending Physician: Clifton Hopper Consulting Physician: Que Diego Reason for Consultation: CBD stone History of Present Illness Patient is a 87 year old female w PMHx of dementia, GERD, Osteoporosis, brought to ED on 04/15 for AMS. Son noticed confusion, pt not following commands and was incontinent of stool which are unusual behaviors for pt. He hadn't noticed any s /s of fever, chills, URI signs, cough, SOB, or complaints of CP, abd pain, n/v, diarrhea, or stroke like symptoms. Workup negative Head CT, KUB. CXR showed cardiomegaly, hiatal hernia, u/s showed evidence of cholecystitis w multiple gallstones, CBD 8mm. Urine cx grew P. Mirabilis, received Ceftriaxone. Her LFTs were elevated: Tbili 3.8, AST/ALT close to 100s, AP 800s. She underwent lap cholecystectomy by Dr. Hopper on 04/20. Intraop cholangiogram showed CBD stones. LFTs are slightly improved. She is demented, oriented to self only. c/o R abd side pain. No s/s of fever overnight. WBC increased to 13 though likely due to post op status. She has no s /s of n/v. RN reports pt had to be straight cath today. Past Medical/Surgical History Medical Problems: (1) Altered mental status Status: Acute (2) UTI (urinary tract infection) Status: Acute Past Medical History: See above Past Surgical History: Shoulder replacement ORIF R hip Family History Hypertension Social History Smoking Status: Unknown if Ever Smoked Alcohol Use: none Drug Use: none Marital Status: Housing Status: lives with family Occupation Status: retired Allergies Coded Allergies: No Known Allergies (Unverified , 04/20/17) Current Medications Home Meds and Scripts Medications Dose Route/Sig Max Daily Dose Days Date Category Doc-Q-Lax (Sennosides-Docusate Sodium) 1 Tab Tab 1 Tab PO DAILY PRN 04/15/17 Reported Miralax (Polyethylene) 17 Gm Pow 17 Gm PO DAILY PRN 04/15/17 Reported Eq Omeprazole (Omeprazole) 20 Mg Tab 20 Mg PO DAILY 04/15/17 Reported Calcium 600 (Calcium Carbonate) 600 Mg Tab 1 Tab PO DAILY 04/15/17 Reported Aspirin 81 (Aspirin) 81 Mg Tab 81 Mg PO DAILY 04/15/17 Reported Nitrostat (Nitroglycerin) 0.4 Mg/1 Tab Subl 0.4 Mg SL UD PRN 10 08/25/14 Rx Docusate Sodium 100 Mg Cap 100 Mg PO BID 10 08/25/14 Rx One Daily (Multiple Vitamin) 1 Tab Tab 1 Tab PO DAILY 08/20/14 Reported Review of Systems Constitutional: No fever, No chills Respiratory: No cough, No shortness of breath Cardiac: No chest pain Abdomen: + pain, No nausea, No vomiting Skin: No jaundice Physical Exam Date Time Temp Pulse Resp B/P (MAP) Pulse Ox O2 Delivery O2 Flow Rate FiO2 04/21/17 07:14 36.5 87 16 109/69 (82) 91 Nasal Cannula 4.0 04/21/17 04:00 94 Nasal Cannula 4.0 04/21/17 04:00 36.7 85 20 112/73 (86) 4 Nasal Cannula 4.0 04/21/17 00:00 36.6 75 20 117/76 (90) 95 Nasal Cannula 4.0 04/21/17 00:00 94 Nasal Cannula 4.0 04/20/17 22:00 36.8 75 18 134/84 (101) 99 4.0 04/20/17 21:12 36.6 72 16 147/84 (105) 96 4.0 04/20/17 20:00 94 Nasal Cannula 4.0 04/20/17 20:00 36.4 66 16 121/76 (91) 94 Nasal Cannula 4.0 04/20/17 19:10 36.4 64 16 120/77 (91) 91 Nasal Cannula 4.0 04/20/17 18:43 36.4 62 16 119/76 (90) 92 Nasal Cannula 4.0 04/20/17 18:36 92 Nasal Cannula 4.0 04/20/17 18:15 36.7 63 16 121/74 (90) 94 Nasal Cannula 3.0 04/20/17 17:47 61 16 04/20/17 17:47 61 16 96 04/20/17 17:46 61 31 96 04/20/17 17:46 61 31 04/20/17 17:45 125/62 04/20/17 17:41 62 24 97 04/20/17 17:41 62 24 04/20/17 17:40 136/63 04/20/17 17:37 36.9 63 22 136/63 97 Mask 10 04/20/17 17:36 65 21 97 04/20/17 17:36 65 21 04/20/17 17:35 138/65 04/20/17 17:31 63 19 04/20/17 17:31 63 19 98 04/20/17 17:30 140/65 04/20/17 17:26 64 24 99 04/20/17 17:26 64 24 04/20/17 17:25 65 29 04/20/17 17:25 65 29 144/68 99 04/20/17 17:21 145/72 04/20/17 17:20 69 20 100 04/20/17 17:20 69 20 04/20/17 17:15 68 23 04/20/17 17:15 68 23 151/70 99 04/20/17 17:11 148/77 04/20/17 17:10 82 23 04/20/17 17:10 36.2 81 16 148/77 (98) 99 Mask 10 04/20/17 17:10 82 23 99 04/20/17 12:00 96 Room Air 04/20/17 11:14 36.8 61 18 159/86 (110) 95 Room Air General Appearance: WD/WN, no apparent distress Eyes: normal inspection, PERRL, EOMI Neck: supple, no JVD, trachea midline Respiratory/Chest: no respiratory distress, no accessory muscle use, + decreased breath sounds (diminished bases) Cardiovascular: regular rate, rhythm, no gallop, no murmur Abdomen: normal bowel sounds, non tender, soft, + pertinent finding (RUQ BELA w serosangenous fluid; post lap lizabeth site CDI w steri strips) Extremities: no pedal edema Neurologic/Psych: alert, + disoriented (oriented to self only ) Skin: normal color, no jaundice, no rash Laboratory Results Last 24 Hours Test 04/21/17 05:25 White Blood Count 13.37 K/uL Red Blood Count 4.06 M/uL Hemoglobin 11.9 g/dL Hematocrit 35.4 % Mean Corpuscular Volume 87.2 fL Mean Corpuscular Hemoglobin 29.3 pg Mean Corpuscular Hemoglobin Concent 33.6 g/dl RDW Standard Deviation 47.0 fL RDW Coefficient of Variation 14.9 % Platelet Count 271 K/uL Mean Platelet Volume 10.9 fL Sodium Level 136 mmol/L Potassium Level 4.4 mmol/L Chloride Level 106 mmol/L Carbon Dioxide Level 25 mmol/L Anion Gap 5.0 mmol/L Blood Urea Nitrogen 7 mg/dl Creatinine 1.00 mg/dl Est Creatinine Clear Calc Drug Dose 29.2 ml/min Estimated GFR () 58.3 Estimated GFR (Non- 50.3 BUN/Creatinine Ratio 6.8 Random Glucose 124 mg/dl Calcium Level 8.1 mg/dl Magnesium Level 1.9 mg/dl Impression Patient is a 87 year old female w cholecystitis s/p lap cholecystectomy, positive intraop cholangiogram for CBD stones. Plan - NPO for ERCP w Dr. Diego in OR today for choledocholithiasis removal. Pt disoriented, I am unable to contact son Miki though he usually visit. I have asked RN to page me when son arrives so we can obtain consent from him. - Monitor LFTs - Further recs after ERCP completed. ATTESTATION: I have performed a history and physical examination of this patient and reviewed the electronic record. Specifically, on physical examination there is right sided abdominal tenderness. I have discussed the case with GEORGIA Parham. The above note reflects my findings, conclusions, and recommendations. Que Diego MD
--- NOTE | 2017-04-21 09:27 | Surgery Progress Note ---
Surgery Progress Note Date of Service Apr 21, 2017. Subjective Post OP Day: 1 (s/p lap lizabeth with intraoperative cholangiogram) sleeping on encounter, doesn't answer many questions , falls back asleep Denied chest pain or shortness of breath "pain in my side" No nausea afebrile overnight, no acute events, had to be straight cathed today. Going for ERCP today. Objective Vital Signs: Date Time Temp Pulse Resp B/P (MAP) Pulse Ox O2 Delivery O2 Flow Rate FiO2 04/21/17 08:00 Nasal Cannula 4.0 04/21/17 07:14 36.5 87 16 109/69 (82) 91 Nasal Cannula 4.0 04/21/17 04:00 94 Nasal Cannula 4.0 04/21/17 04:00 36.7 85 20 112/73 (86) 4 Nasal Cannula 4.0 04/21/17 00:00 36.6 75 20 117/76 (90) 95 Nasal Cannula 4.0 04/21/17 00:00 94 Nasal Cannula 4.0 04/20/17 22:00 36.8 75 18 134/84 (101) 99 4.0 04/20/17 21:12 36.6 72 16 147/84 (105) 96 4.0 04/20/17 20:00 94 Nasal Cannula 4.0 04/20/17 20:00 36.4 66 16 121/76 (91) 94 Nasal Cannula 4.0 04/20/17 19:10 36.4 64 16 120/77 (91) 91 Nasal Cannula 4.0 04/20/17 18:43 36.4 62 16 119/76 (90) 92 Nasal Cannula 4.0 04/20/17 18:36 92 Nasal Cannula 4.0 04/20/17 18:15 36.7 63 16 121/74 (90) 94 Nasal Cannula 3.0 04/20/17 17:47 61 16 04/20/17 17:47 61 16 96 04/20/17 17:46 61 31 96 04/20/17 17:46 61 31 04/20/17 17:45 125/62 04/20/17 17:41 62 24 97 04/20/17 17:41 62 24 04/20/17 17:40 136/63 04/20/17 17:37 36.9 63 22 136/63 97 Mask 10 04/20/17 17:36 65 21 97 04/20/17 17:36 65 21 04/20/17 17:35 138/65 04/20/17 17:31 63 19 04/20/17 17:31 63 19 98 04/20/17 17:30 140/65 04/20/17 17:26 64 24 99 04/20/17 17:26 64 24 04/20/17 17:25 65 29 04/20/17 17:25 65 29 144/68 99 04/20/17 17:21 145/72 04/20/17 17:20 69 20 100 04/20/17 17:20 69 20 04/20/17 17:15 68 23 04/20/17 17:15 68 23 151/70 99 04/20/17 17:11 148/77 04/20/17 17:10 82 23 04/20/17 17:10 36.2 81 16 148/77 (98) 99 Mask 10 04/20/17 17:10 82 23 99 04/20/17 12:00 96 Room Air 04/20/17 11:14 36.8 61 18 159/86 (110) 95 Room Air General Appearance: no apparent distress Head: normocephalic, atraumatic Neck: trachea midline Respiratory/Chest: lungs clear, no respiratory distress, no accessory muscle use Cardiovascular: regular rate, rhythm, no murmur Abdomen: non distended, soft, + tenderness (appropriate post op at incision sites and RUQ) Incision(s): clean, dry, intact, no erythema, no drainage, findings (steri strips present) Laboratory Results: Results Past 24 Hours Test 04/21/17 05:25 Range/Units White Blood Count 13.37 4.8-10.8 K/uL Red Blood Count 4.06 4.2-5.4 M/uL Hemoglobin 11.9 12.0-16.0 g/dL Hematocrit 35.4 37-47 % Mean Corpuscular Volume 87.2 80-100 fL Mean Corpuscular Hemoglobin 29.3 25-34 pg Mean Corpuscular Hemoglobin Concent 33.6 32-36 g/dl RDW Standard Deviation 47.0 36.4-46.3 fL RDW Coefficient of Variation 14.9 11.5-14.5 % Platelet Count 271 130-400 K/uL Mean Platelet Volume 10.9 7.4-10.4 fL Sodium Level 136 136-145 mmol/L Potassium Level 4.4 3.5-5.1 mmol/L Chloride Level 106 98-107 mmol/L Carbon Dioxide Level 25 21-32 mmol/L Anion Gap 5.0 3-11 mmol/L Blood Urea Nitrogen 7 7-18 mg/dl Creatinine 1.00 0.60-1.20 mg/dl Est Creatinine Clear Calc Drug Dose 29.2 ml/min Estimated GFR () 58.3 Estimated GFR (Non- 50.3 BUN/Creatinine Ratio 6.8 10-20 Random Glucose 124 70-99 mg/dl Calcium Level 8.1 8.5-10.1 mg/dl Magnesium Level 1.9 1.8-2.4 mg/dl Assessment & Plan POD # 1 s/p laparoscopic cholecystectomy with intraoperative Cholangiogram Choledocholithiasis Acute Cholecystitis - vitals stable, currently on 4 liters of O2 - abdomen soft, nondistended, appropriately tender - BELA drain serosanguineous - slight increase in WBC to 13 today Plan: ERCP planned for today keep npo continue current pain management and iv fluids continue current medical management repeat labs tomorrow am including cbc and cmp Discussed with Dr. Hopper, agrees with above
[2017-04-21] MEDS ORDERED: NURSING VERBAL MED ORDER ONE (12:45)
--- NOTE | 2017-04-21 13:39 | Progress Note ---
Internal Med Progress Note Date of Service: Apr 21, 2017. Provider Documentation: SUBJECTIVE: The patient was seen and examined Complains of right UQ pain and discomfort No nausea and or vomiting No CP,Palpitation,SOB OBJECTIVE: Vital Signs-as noted below Exam: General-No distress at rest Eyes-normal ENT-normal Neck-supple Lungs-clear Heart-Regular ,no murmur appreciated Abdomen-soft,mildly tender RUQ,bowel sound Extremities-No edema Neuro-AAOx3 Generally weak Lab data as noted below. ASSESSMENT & PLAN: Acute cholecystitis with Choledocholithiasis Abdomen USD: suggestive of acute cholecystis and biliary obstruction IV fluids,Pain Medication and IV Ceftriaxone and Flagyl Appreciate Surgery input S/P Lap Cholecystectomy Perioperative cholangiogram showed Choledocholithiasis GI consulted ERCP-today UTI: Urine culture:Proteus Continue ceftriaxone Day # 6 NSVT: Had a short run of VT overnight. Patient asymptomatic Monitor electrolytes ECHO: * Ejection Fraction = 55-60%. * There is mild concentric left ventricular hypertrophy. * Mild basal posterior wall hypokinesis, otherwise, normal wall motion. * Grade I diastolic dysfunction, (abnormal relaxation pattern). * Aortic valve sclerosis mild, without significant aortic valvular stenosis. * There is mild mitral regurgitation. * There is trace tricuspid regurgitation. * Doppler findings do not suggest pulmonary hypertension. Appreciate Cardiology Input Continue BB No more events Encephalopathy: Likely metabolic from infection H/O baseline dementia CT head:No acute intracranial findings Resolved WILNER DEHYDRATION Clinically dry, Cr 1.3 on presentation Continue IV fluids Cr is back to baseline AMBULATORY DYSFUNCTION Fall precautions PT/OT GI prophylaxis Has GERD Continue PPI DVT Px Heparin SQ CODE STATUS DNR per discussion with patient's son Miki Cutler at bedside who is POA. . DISPOSITION May need placement; manager social responsibility consulted Monitor in Tele Vital Signs: Date Time Temp Pulse Resp B/P (MAP) Pulse Ox O2 Delivery O2 Flow Rate FiO2 04/21/17 12:00 Nasal Cannula 3.0 04/21/17 11:05 36.6 88 16 121/76 (91) 92 Nasal Cannula 4.0 04/21/17 08:00 Nasal Cannula 4.0 04/21/17 07:14 36.5 87 16 109/69 (82) 91 Nasal Cannula 4.0 04/21/17 04:00 94 Nasal Cannula 4.0 04/21/17 04:00 36.7 85 20 112/73 (86) 4 Nasal Cannula 4.0 04/21/17 00:00 36.6 75 20 117/76 (90) 95 Nasal Cannula 4.0 04/21/17 00:00 94 Nasal Cannula 4.0 04/20/17 22:00 36.8 75 18 134/84 (101) 99 4.0 04/20/17 21:12 36.6 72 16 147/84 (105) 96 4.0 04/20/17 20:00 94 Nasal Cannula 4.0 04/20/17 20:00 36.4 66 16 121/76 (91) 94 Nasal Cannula 4.0 04/20/17 19:10 36.4 64 16 120/77 (91) 91 Nasal Cannula 4.0 04/20/17 18:43 36.4 62 16 119/76 (90) 92 Nasal Cannula 4.0 04/20/17 18:36 92 Nasal Cannula 4.0 04/20/17 18:15 36.7 63 16 121/74 (90) 94 Nasal Cannula 3.0 04/20/17 17:47 61 16 04/20/17 17:47 61 16 96 04/20/17 17:46 61 31 96 04/20/17 17:46 61 31 04/20/17 17:45 125/62 04/20/17 17:41 62 24 97 04/20/17 17:41 62 24 04/20/17 17:40 136/63 04/20/17 17:37 36.9 63 22 136/63 97 Mask 10 04/20/17 17:36 65 21 97 04/20/17 17:36 65 21 04/20/17 17:35 138/65 04/20/17 17:31 63 19 04/20/17 17:31 63 19 98 04/20/17 17:30 140/65 04/20/17 17:26 64 24 99 04/20/17 17:26 64 24 04/20/17 17:25 65 29 04/20/17 17:25 65 29 144/68 99 04/20/17 17:21 145/72 04/20/17 17:20 69 20 100 04/20/17 17:20 69 20 04/20/17 17:15 68 23 04/20/17 17:15 68 23 151/70 99 04/20/17 17:11 148/77 04/20/17 17:10 82 23 04/20/17 17:10 36.2 81 16 148/77 (98) 99 Mask 10 04/20/17 17:10 82 23 99 Lab Results: Results Past 24 Hours Test 04/21/17 05:25 Range/Units White Blood Count 13.37 4.8-10.8 K/uL Red Blood Count 4.06 4.2-5.4 M/uL Hemoglobin 11.9 12.0-16.0 g/dL Hematocrit 35.4 37-47 % Mean Corpuscular Volume 87.2 80-100 fL Mean Corpuscular Hemoglobin 29.3 25-34 pg Mean Corpuscular Hemoglobin Concent 33.6 32-36 g/dl RDW Standard Deviation 47.0 36.4-46.3 fL RDW Coefficient of Variation 14.9 11.5-14.5 % Platelet Count 271 130-400 K/uL Mean Platelet Volume 10.9 7.4-10.4 fL Sodium Level 136 136-145 mmol/L Potassium Level 4.4 3.5-5.1 mmol/L Chloride Level 106 98-107 mmol/L Carbon Dioxide Level 25 21-32 mmol/L Anion Gap 5.0 3-11 mmol/L Blood Urea Nitrogen 7 7-18 mg/dl Creatinine 1.00 0.60-1.20 mg/dl Est Creatinine Clear Calc Drug Dose 29.2 ml/min Estimated GFR () 58.3 Estimated GFR (Non- 50.3 BUN/Creatinine Ratio 6.8 10-20 Random Glucose 124 70-99 mg/dl Calcium Level 8.1 8.5-10.1 mg/dl Magnesium Level 1.9 1.8-2.4 mg/dl
[2017-04-21] MEDS ORDERED: FENTANYL CITRATE INJ 50 MCG/1 ML 2 ML VIAL ONE (14:18)
[2017-04-21] MEDS ORDERED: INDOMETHACIN 50 MG SUPP PR SCH (14:30)
[2017-04-21] MEDS ORDERED: LIDOCAINE HCL 2% 2 ML VIAL (20MG/ML) ONE (15:11)
[2017-04-21] MEDS ORDERED: ONDANSETRON INJ 2 MG/ML 2 ML VIAL ONE (15:11)
[2017-04-21] MEDS ORDERED: SUCCINYLCHOLINE CHLORIDE 20 MG/ML 10 ML VIAL IV ONE (15:11)
[2017-04-21] MEDS ORDERED: PROPOFOL IV EMULSION 10 MG/ML 20 ML VIAL IV ONE (15:11)
[2017-04-21] MEDS ORDERED: EpHEDrine SULFATE INJ 50 MG/ML AMP IV PRN (15:30)
[2017-04-21] MEDS ORDERED: ATROPINE SULFATE 0.1 MG/ML 5ML SYR IV PRN (15:30)
--- NOTE | 2017-04-21 16:39 | [facility] Operative Report ---
Operative Report Operative Date Apr 21, 2017. Pre-Operative Diagnosis BILIARY STONE Post-Operative Diagnosis SAME Procedure(s) Performed Endoscopic Retrograde Cholangiopancreatogram with sphincterotomy, dilation, and stone extraction Surgeon Dr. Diego Chief Medical Officer Surgeon(s) none Estimated Blood Loss none Findings See Provation report Fluids See anesthesia note Drains one previously placed J-P in the subhepatic space Anesthesia General Disposition Recovery Room / PACU Indications Choledocholihiasis Description of Procedure See Provation report I attest to the content of the Intraoperative Record and any orders documented therein. Any exceptions are noted below.
--- NOTE | 2017-04-21 17:06 | Anesthesiology Progress Note ---
Anesthesia Post Op Note Date & Time Apr 21, 2017 at 17:06 Vital Signs Pain Intensity: 0 Vital Signs Past 12 Hours Date Time Temp Pulse Resp B/P (MAP) Pulse Ox O2 Delivery O2 Flow Rate FiO2 04/21/17 16:57 77 24 97 04/21/17 16:57 77 24 04/21/17 16:55 139/67 04/21/17 16:52 80 27 97 04/21/17 16:52 80 27 04/21/17 16:51 141/70 04/21/17 16:47 74 19 04/21/17 16:47 73 19 98 04/21/17 16:46 77 20 04/21/17 16:46 78 20 98 04/21/17 16:45 131/70 04/21/17 16:41 74 18 99 04/21/17 16:41 74 18 04/21/17 16:40 129/69 04/21/17 16:36 80 20 04/21/17 16:36 77 20 97 04/21/17 16:35 132/66 04/21/17 16:33 74 17 99 04/21/17 16:33 74 17 04/21/17 16:30 125/58 04/21/17 16:28 82 26 100 04/21/17 16:28 82 26 04/21/17 16:25 116/61 04/21/17 16:23 83 111/61 100 04/21/17 16:23 36.8 76 18 111/61 99 Mask 10 04/21/17 16:23 83 04/21/17 16:00 Nasal Cannula 3.0 04/21/17 12:00 Nasal Cannula 3.0 04/21/17 11:05 36.6 88 16 121/76 (91) 92 Nasal Cannula 4.0 04/21/17 08:00 Nasal Cannula 4.0 04/21/17 07:14 36.5 87 16 109/69 (82) 91 Nasal Cannula 4.0 Notes Mental Status: alert / awake / arousable, participated in evaluation Pt Amnestic to Procedure: Yes Nausea / Vomiting: adequately controlled Pain: adequately controlled Airway Patency, RR, SpO2: stable & adequate BP & HR: stable & adequate Hydration State: stable & adequate Anesthetic Complications: no major complications apparent
--- NOTE | 2017-04-21 18:07 | DIAGNOSTIC IMAGING REPORT ---
ERCP BILIARY DUCTAL CLINICAL HISTORY: Common bile duct stone. COMPARISON STUDY: Intraoperative cholangiogram 04/20/2017. FLUOROSCOPY TIME: 42 seconds. FINDINGS: 3 fluoroscopic spot images. The endoscope is seen at the second portion of the duodenum. The ampulla was cannulated. A guidewire was seen within the distended common bile duct. Large filling defect/stone is seen within the distal common bile duct. A balloon sweep was attempted. However, the large stone remains within the common bile duct. Recent cholecystectomy. IMPRESSION: Fluoroscopy provided for ERCP. A balloon sweep was performed. The large stone remained within the common bile duct. Electronically signed by: Jamarcus Vargas M.D. 04/21/2017 6:05 PM Dictated Date/Time: 04/21/2017 6:02 PM
[2017-04-21] MEDS: D5W AND LACTATED RINGERS 1,000 ML IV SCH (18:14)
[2017-04-21] MEDS: RANITIDINE IV 50 MG in DEXTROSE 5% 100ML 100 ML IV SCH (18:14)
[2017-04-22] VITALS (10 sets, daily range): BP systolic 126–175; BP diastolic 62–106; PULSE 78–98; TEMP 36.4–37; O2SAT 93–98
--- NOTE | 2017-04-22 00:14 | GI REPORT ---
Procedure Date: 04/21/2017 2:15 PM Procedure: ERCP Indications: Filling defect on intraoperative cholangiogram Medicines: General Anesthesia, Indomethicin 100 mg rectal Complications: No immediate complications. Estimated blood loss: None Estimated Blood Loss: Estimated blood loss: none. Procedure: Pre-Anesthesia Assessment: - Prior to the procedure, a History and Physical was performed, and patient medications, allergies and sensitivities were reviewed. The patient's tolerance of previous anesthesia was reviewed. - ASA Grade Assessment: IV - A patient with severe systemic disease that is a constant threat to life. After obtaining informed consent, the scope was passed under direct vision. Throughout the procedure, the patient's blood pressure, pulse, and oxygen saturations were monitored continuously. The SCOPE was introduced through the mouth, and advanced to the duodenum and used to inject contrast into the bile duct. The ERCP was performed with difficulty due to significant looping. Successful completion of the procedure was aided by withdrawing the scope and replacing with the adult endoscope. Findings: A faculty physician film of the abdomen was obtained. Surgical clips, consistent with previous cholecystectomy, were seen in the area of the right upper quadrant of the abdomen. Due to a large hiatal hernia, the pylorus could not be identified on the initial pass of the duodenoscope. A standard esophagogastroduodenoscopy scope was used for the examination of the upper gastrointestinal tract. The scope was passed under direct vision through the upper GI tract. A large hiatus hernia was present. Multiple medium semi-sessile polyps were found in the gastric body. The pylorus was idenified and the scope was passed into the third portion of the duodenum. A stiff 0.038 inch Savary guidewire was passed into the duodenum and the gastroscope was withdrawn. The duodenoscope was passed alonside the guidewire. The guidewire was followed under direct vision and with fluoroscopy to guide the duodenoscope to the major papilla. The major papilla was normal. A Tamago Acrobat 0.035 inch guidewire was passed into the biliary tree through a Tamago Omni FS 35 sphincterotome. The sphincterorome was passed over the guidewire and the bile duct was then deeply cannulated. Contrast was injected. The main bile duct was diffusely dilated, acquired. The largest diameter was 15 mm. The lower third of the main bile duct contained one stone, which was 12 mm in diameter. A 10 mm biliary sphincterotomy was made with a monofilament traction (standard) sphincterotome using ERBE electrocautery. There was no post-sphincterotomy bleeding. Dilation of the spincterotomy and distal common bile duct with a 10 mm balloon dilator was successful. The stone was captured in a Microvasive Trapezoid 3 cm basket and removed. The duct was then swept multiple times with an extraction balloon. No stones remained. The total fluoroscopy exposure time was 4 minutes and 43 seconds. Impression: - Large hiatus hernia. - Multiple gastric polyps. - Choledocholithiasis was found. Complete removal was accomplished by biliary sphincterotomy, balloon dilation of the sphinterotomy and basket extraction. Recommendation: - [facility] patient [facility] for [facility] care. Que Diego M.D. Que Diego MD 04/21/2017 4:27:52 PM This report has been signed electronically. Note Initiated On: 04/21/2017 2:15 PM I attest to the content of the Intraoperative Record and orders documented therein, exceptions below
[2017-04-22] MEDS: METRONIDAZOLE / NSS 500 MG in PREMIXED NSS 100 ML IV SCH ×3 (00:28→15:33)
[2017-04-22] MEDS: D5W AND LACTATED RINGERS 1,000 ML IV SCH ×3 (00:29→16:54)
[2017-04-22 06:58] LABS: HEMATOCRIT 34.3 % (37-47); MEAN CELL VOLUME 87.5 fL (80-100); MEAN CORPUSCULAR HEMOGLOBIN 30.1 pg (25-34); MEAN CORPUSCULAR HGB CONC 34.4 g/dl (32-36); MEAN PLATELET VOLUME 11.6 fL (7.4-10.4); PLATELET COUNT 242 K/uL (130-400); RED BLOOD COUNT 3.92 M/uL (4.2-5.4); WHITE BLOOD COUNT 12.13 K/uL (4.8-10.8)
[2017-04-22 07:32] LABS: ALB/GLOB RATIO 0.6 (0.9-2); CALCIUM 8.1 mg/dl (8.5-10.1); POTASSIUM 4.2 mmol/L (3.5-5.1)
--- NOTE | 2017-04-22 07:41 | Surgery Progress Note ---
Surgery Progress Note Date of Service Apr 22, 2017. Subjective Post OP Day: 2 + pain controlled, No nausea, No vomiting Objective Vital Signs: Date Time Temp Pulse Resp B/P (MAP) Pulse Ox O2 Delivery O2 Flow Rate FiO2 04/22/17 07:04 36.7 83 16 136/82 (100) 94 Nasal Cannula 3.0 04/22/17 06:22 160/87 (111) 04/22/17 04:13 36.4 92 20 161/96 (117) 93 3.0 04/22/17 04:00 Nasal Cannula 3.0 04/22/17 00:00 Nasal Cannula 3.0 04/21/17 23:42 36.3 82 20 151/85 (107) 93 Nasal Cannula 3.0 04/21/17 21:00 36.4 69 126/73 (90) 92 Nasal Cannula 3.0 04/21/17 20:00 Nasal Cannula 3.0 04/21/17 20:00 36.4 65 16 129/79 (96) 93 Nasal Cannula 3.0 04/21/17 19:15 36.6 66 16 158/82 (107) 93 Nasal Cannula 3.0 04/21/17 18:25 36.3 75 18 130/77 (94) 95 Oxymask 2.0 04/21/17 17:55 36.5 70 18 153/80 (104) 95 Nasal Cannula 2.0 04/21/17 17:40 36.4 70 18 125/67 (86) 95 Nasal Cannula 2.0 04/21/17 17:25 36.4 70 18 146/77 (100) 94 Oxymask 2.0 04/21/17 17:13 70 20 04/21/17 17:13 70 20 97 04/21/17 17:10 137/73 04/21/17 17:10 36.4 04/21/17 17:08 70 19 04/21/17 17:08 69 19 96 04/21/17 17:05 150/68 04/21/17 17:03 83 37 96 04/21/17 17:03 83 20 04/21/17 17:00 148/71 04/21/17 16:58 72 19 97 04/21/17 16:58 71 19 04/21/17 16:57 77 24 97 04/21/17 16:57 77 24 04/21/17 16:55 139/67 04/21/17 16:52 80 27 97 04/21/17 16:52 80 27 04/21/17 16:51 141/70 04/21/17 16:47 74 19 04/21/17 16:47 73 19 98 04/21/17 16:46 77 20 04/21/17 16:46 78 20 98 04/21/17 16:45 131/70 04/21/17 16:41 74 18 99 04/21/17 16:41 74 18 04/21/17 16:40 129/69 04/21/17 16:36 80 20 04/21/17 16:36 77 20 97 04/21/17 16:35 132/66 04/21/17 16:33 74 17 99 04/21/17 16:33 74 17 04/21/17 16:30 125/58 04/21/17 16:28 82 26 100 04/21/17 16:28 82 26 04/21/17 16:25 116/61 04/21/17 16:23 83 111/61 100 04/21/17 16:23 36.8 76 18 111/61 99 Mask 10 04/21/17 16:23 83 04/21/17 16:00 Nasal Cannula 3.0 04/21/17 12:00 Nasal Cannula 3.0 04/21/17 11:05 36.6 88 16 121/76 (91) 92 Nasal Cannula 4.0 04/21/17 08:00 Nasal Cannula 4.0 Physical Exam: BELA drainage (240 cc yesterday, 50 cc last shift, serous) Abdomen: normal bowel sounds, non distended, soft Incision(s): clean, dry, intact, no erythema, no drainage Laboratory Results: Results Past 24 Hours Test 04/22/17 06:37 Range/Units White Blood Count 12.13 4.8-10.8 K/uL Red Blood Count 3.92 4.2-5.4 M/uL Hemoglobin 11.8 12.0-16.0 g/dL Hematocrit 34.3 37-47 % Mean Corpuscular Volume 87.5 80-100 fL Mean Corpuscular Hemoglobin 30.1 25-34 pg Mean Corpuscular Hemoglobin Concent 34.4 32-36 g/dl RDW Standard Deviation 47.7 36.4-46.3 fL RDW Coefficient of Variation 15.0 11.5-14.5 % Platelet Count 242 130-400 K/uL Mean Platelet Volume 11.6 7.4-10.4 fL Sodium Level 137 136-145 mmol/L Potassium Level 4.2 3.5-5.1 mmol/L Chloride Level 106 98-107 mmol/L Carbon Dioxide Level 26 21-32 mmol/L Anion Gap 5.0 3-11 mmol/L Creatinine 1.00 0.60-1.20 mg/dl Est Creatinine Clear Calc Drug Dose 29.9 ml/min Estimated GFR () 58.3 Estimated GFR (Non- 50.3 BUN/Creatinine Ratio 12.0 10-20 Random Glucose 139 70-99 mg/dl Calcium Level 8.1 8.5-10.1 mg/dl Total Bilirubin 1.0 0.2-1 mg/dl Direct Bilirubin 0.6 0-0.2 mg/dl Aspartate Amino Transf (AST/SGOT) 47 15-37 U/L Alanine Aminotransferase (ALT/SGPT) 26 12-78 U/L Alkaline Phosphatase 366 45-117 U/L Total Protein 5.3 6.4-8.2 gm/dl Albumin 1.9 3.4-5.0 gm/dl Globulin 3.4 2.5-4.0 gm/dl Albumin/Globulin Ratio 0.6 0.9-2 Lipase 47 73-393 U/L Assessment & Plan S/P lap lizabeth and ERCP Feels well today LFT's decreased Advance diet as per GI Physical therapy
--- NOTE | 2017-04-22 08:01 | Anesthesiology Progress Note ---
Anesthesia Post Op Note Date & Time Apr 22, 2017 at 08:01 Vital Signs Pain Intensity: 0.0 Vital Signs Past 12 Hours Date Time Temp Pulse Resp B/P (MAP) Pulse Ox O2 Delivery O2 Flow Rate FiO2 04/22/17 07:04 36.7 83 16 136/82 (100) 94 Nasal Cannula 3.0 04/22/17 06:22 160/87 (111) 04/22/17 04:13 36.4 92 20 161/96 (117) 93 3.0 04/22/17 04:00 Nasal Cannula 3.0 04/22/17 00:00 Nasal Cannula 3.0 04/21/17 23:42 36.3 82 20 151/85 (107) 93 Nasal Cannula 3.0 04/21/17 21:00 36.4 69 126/73 (90) 92 Nasal Cannula 3.0 Notes Mental Status: alert / awake / arousable, participated in evaluation Pt Amnestic to Procedure: Yes Nausea / Vomiting: adequately controlled Pain: adequately controlled Airway Patency, RR, SpO2: stable & adequate BP & HR: stable & adequate Hydration State: stable & adequate Anesthetic Complications: no major complications apparent
[2017-04-22] MEDS: HEPARIN SOD 5000 UNIT/0.5 ML CARP SQ SCH ×2 (08:29→20:56)
[2017-04-22] MEDS: METOPROLOL TARTRATE 25 MG TAB PO SCH ×3 (08:32→20:59)
[2017-04-22] MEDS: ASPIRIN 81 MG ECTAB PO SCH (08:32)
[2017-04-22] MEDS: DOCUSATE SODIUM 100 MG CAP PO SCH ×2 (08:32→20:58)
--- NOTE | 2017-04-22 10:57 | Gastroenterology Progress Note ---
Progress Note Date of Service: Apr 22, 2017 Subjective Pt evaluation today including: conversation w/ patient, physical exam, chart review, lab review, review of inpatient medication list Pt laying in bed, awaken when name called. Said feeling "better", denies being in pain. No s/s of n/v. Labs reviewed: CBC stable, LFTs trending down, Lipase normal. Review of Systems Constitutional: No fever, No chills Respiratory: No shortness of breath Cardiac: No chest pain Abdomen: No pain, No nausea, No vomiting Medications Current Inpatient Medications Medications (Trade) Dose Ordered Sig/Pricila Route Start Time Stop Time Status Last Admin Dose Admin Heparin Sodium (Porcine) (Heparin Sq 5000 Unit/0.5ml) 5,000 unit Q12 SQ 04/15/17 21:00 05/15/17 20:59 04/22/17 08:29 5,000 UNIT Ondansetron HCl (Zofran Inj) 4 mg Q6H PRN IV 04/15/17 16:15 05/15/17 16:14 04/20/17 06:28 4 MG Aspirin (Ecotrin Tab) 81 mg DAILY PO 04/16/17 09:00 05/16/17 08:59 04/19/17 07:46 81 MG Docusate Sodium (coLACE CAP) 100 mg BID PO 04/15/17 21:00 05/15/17 20:59 04/19/17 21:18 100 MG Nitroglycerin (Nitrostat Tab) 0.4 mg UD PRN SL 04/15/17 16:30 05/15/17 16:29 Polyethylene (Miralax Powder Packet) 17 gm DAILY PRN PO 04/15/17 16:30 05/15/17 16:29 04/19/17 15:55 17 GM Senna/Docusate Sodium (Senokot S Tab) 1 tab DAILY PRN PO 04/15/17 16:30 05/15/17 16:29 Calcium/Vitamin D (Caltrate Plus Tab) 1 tab DAILY PO 04/16/17 09:00 05/16/17 08:59 Future Hold 04/16/17 08:22 1 TAB Tramadol HCl (Ultram Tab) 50 mg Q6H PRN PO 04/16/17 08:00 05/16/17 07:59 04/18/17 09:18 50 MG Miconazole Nitrate (Desenex Powder) 1 appln PRN PRN EXT 04/16/17 10:15 05/16/17 10:14 Metronidazole 500 mg/Prmx 100 ml @ 100 mls/hr Q8H IV 04/16/17 16:00 04/26/17 15:59 04/22/17 08:24 100 MLS/HR Ranitidine HCl 50 mg/Dextrose 102 ml @ 200 mls/hr Q24H IV 04/16/17 16:00 05/16/17 15:59 04/21/17 18:14 200 MLS/HR Metoprolol Tartrate (Lopressor Tab) 12.5 mg BID PO 04/18/17 21:00 05/18/17 20:59 04/19/17 21:19 12.5 MG Morphine Sulfate (MoRPHine SULFATE INJ) 2 mg Q1H PRN IV 04/20/17 18:00 05/04/17 17:59 04/21/17 11:48 2 MG Dextrose/Lactated Ringer's 1,000 ml @ 125 mls/hr Q8H IV 04/21/17 16:45 05/21/17 16:44 04/22/17 08:33 125 MLS/HR Objective Vital Signs Date Time Temp Pulse Resp B/P (MAP) Pulse Ox O2 Delivery O2 Flow Rate FiO2 04/22/17 08:00 Nasal Cannula 3.0 04/22/17 07:04 36.7 83 16 136/82 (100) 94 Nasal Cannula 3.0 04/22/17 06:22 160/87 (111) 04/22/17 04:13 36.4 92 20 161/96 (117) 93 3.0 04/22/17 04:00 Nasal Cannula 3.0 04/22/17 00:00 Nasal Cannula 3.0 04/21/17 23:42 36.3 82 20 151/85 (107) 93 Nasal Cannula 3.0 04/21/17 21:00 36.4 69 126/73 (90) 92 Nasal Cannula 3.0 04/21/17 20:00 Nasal Cannula 3.0 04/21/17 20:00 36.4 65 16 129/79 (96) 93 Nasal Cannula 3.0 04/21/17 19:15 36.6 66 16 158/82 (107) 93 Nasal Cannula 3.0 04/21/17 18:25 36.3 75 18 130/77 (94) 95 Oxymask 2.0 04/21/17 17:55 36.5 70 18 153/80 (104) 95 Nasal Cannula 2.0 04/21/17 17:40 36.4 70 18 125/67 (86) 95 Nasal Cannula 2.0 04/21/17 17:25 36.4 70 18 146/77 (100) 94 Oxymask 2.0 04/21/17 17:13 70 20 04/21/17 17:13 70 20 97 04/21/17 17:10 137/73 04/21/17 17:10 36.4 04/21/17 17:08 70 19 04/21/17 17:08 69 19 96 04/21/17 17:05 150/68 04/21/17 17:03 83 37 96 04/21/17 17:03 83 20 04/21/17 17:00 148/71 04/21/17 16:58 72 19 97 04/21/17 16:58 71 19 04/21/17 16:57 77 24 97 04/21/17 16:57 77 24 04/21/17 16:55 139/67 04/21/17 16:52 80 27 97 04/21/17 16:52 80 27 04/21/17 16:51 141/70 04/21/17 16:47 74 19 04/21/17 16:47 73 19 98 04/21/17 16:46 77 20 04/21/17 16:46 78 20 98 04/21/17 16:45 131/70 04/21/17 16:41 74 18 99 04/21/17 16:41 74 18 04/21/17 16:40 129/69 04/21/17 16:36 80 20 04/21/17 16:36 77 20 97 04/21/17 16:35 132/66 04/21/17 16:33 74 17 99 04/21/17 16:33 74 17 04/21/17 16:30 125/58 04/21/17 16:28 82 26 100 04/21/17 16:28 82 26 04/21/17 16:25 116/61 04/21/17 16:23 83 111/61 100 04/21/17 16:23 36.8 76 18 111/61 99 Mask 10 04/21/17 16:23 83 04/21/17 16:00 Nasal Cannula 3.0 04/21/17 12:00 Nasal Cannula 3.0 04/21/17 11:05 36.6 88 16 121/76 (91) 92 Nasal Cannula 4.0 Physical Exam General Appearance: WD/WN, no apparent distress Neck: supple, no JVD, trachea midline Respiratory/Chest: no respiratory distress, no accessory muscle use, + decreased breath sounds Cardiovascular: regular rate, rhythm, no gallop, no murmur Abdomen: normal bowel sounds, non tender, soft, + pertinent finding (BELA drain on RUQ draining serosangenous fluid ) Extremities: normal inspection, no pedal edema, no calf tenderness Neurologic/Psych: + depressed affect, + disoriented (oriented to self and place only ) Skin: normal color, no jaundice, no rash Laboratory Results Last 24 Hours Test 04/22/17 06:37 White Blood Count 12.13 K/uL Red Blood Count 3.92 M/uL Hemoglobin 11.8 g/dL Hematocrit 34.3 % Mean Corpuscular Volume 87.5 fL Mean Corpuscular Hemoglobin 30.1 pg Mean Corpuscular Hemoglobin Concent 34.4 g/dl RDW Standard Deviation 47.7 fL RDW Coefficient of Variation 15.0 % Platelet Count 242 K/uL Mean Platelet Volume 11.6 fL Sodium Level 137 mmol/L Potassium Level 4.2 mmol/L Chloride Level 106 mmol/L Carbon Dioxide Level 26 mmol/L Anion Gap 5.0 mmol/L Blood Urea Nitrogen 12 mg/dl Creatinine 1.00 mg/dl Est Creatinine Clear Calc Drug Dose 29.9 ml/min Estimated GFR () 58.3 Estimated GFR (Non- 50.3 BUN/Creatinine Ratio 12.0 Random Glucose 139 mg/dl Calcium Level 8.1 mg/dl Total Bilirubin 1.0 mg/dl Direct Bilirubin 0.6 mg/dl Aspartate Amino Transf (AST/SGOT) 47 U/L Alanine Aminotransferase (ALT/SGPT) 26 U/L Alkaline Phosphatase 366 U/L Total Protein 5.3 gm/dl Albumin 1.9 gm/dl Globulin 3.4 gm/dl Albumin/Globulin Ratio 0.6 Lipase 47 U/L Assessment and Plan Patient is a 87 year old female w cholecystitis s/p lap cholecystectomy, positive intraop cholangiogram for CBD stones. Underwent ERCP w stone extraction , sphincterectomy and dilation on 04/21. LFTs trending down, Lipase normal. CBC stable. Plans - Monitor LFTs - OK to start CL diet, may advance as tolerated - Family updated on pt's condition. ATTESTATION: I have performed a history and physical examination of thia patient and reviewed the electronic record. Specifically, on physical examination abdominal tenderness is minimal. I have discussed the case with GEORGIA Parham. The above note reflects my findings, conclusions, and recommendations. Qeu Diego MD
--- NOTE | 2017-04-22 14:37 | Progress Note ---
Internal Med Progress Note Date of Service: Apr 22, 2017. Provider Documentation: SUBJECTIVE: The patient was seen and examined No complaints today No nausea and or vomiting No CP,Palpitation,SOB OBJECTIVE: Vital Signs-as noted below Exam: General-No distress at rest Eyes-normal ENT-normal Neck-supple Lungs-clear Heart-Regular ,no murmur appreciated Abdomen-soft,mildly tender RUQ,bowel sound present Extremities-No edema Neuro-AAOx3 Generally weak Lab data as noted below. ASSESSMENT & PLAN: Acute cholecystitis with Choledocholithiasis Abdomen USD: suggestive of acute cholecystis and biliary obstruction IV fluids,Pain Medication and IV Ceftriaxone and Flagyl Appreciate Surgery input S/P Lap Cholecystectomy Perioperative cholangiogram showed Choledocholithiasis GI consulted S/O ERCP -sphincterotomy done but 1 big stone remains in CBD No more symptoms UTI: Urine culture:Proteus Finished antibiotic NSVT: Had a short run of VT overnight. Patient asymptomatic Monitor electrolytes ECHO: * Ejection Fraction = 55-60%. * There is mild concentric left ventricular hypertrophy. * Mild basal posterior wall hypokinesis, otherwise, normal wall motion. * Grade I diastolic dysfunction, (abnormal relaxation pattern). * Aortic valve sclerosis mild, without significant aortic valvular stenosis. * There is mild mitral regurgitation. * There is trace tricuspid regurgitation. * Doppler findings do not suggest pulmonary hypertension. Appreciate Cardiology Input Continue BB No more events Encephalopathy: Likely metabolic from infection H/O baseline dementia CT head:No acute intracranial findings Resolved WILNER DEHYDRATION Clinically dry, Cr 1.3 on presentation Continue IV fluids Cr is back to baseline AMBULATORY DYSFUNCTION Fall precautions PT/OT GI prophylaxis Has GERD Continue PPI DVT Px Heparin SQ CODE STATUS DNR per discussion with patient's son Miki Cutler at bedside who is POA. . DISPOSITION May need placement; social security benefits interviewer consulted Monitor in Tele Likely to discharge tomorrow Vital Signs: Date Time Temp Pulse Resp B/P (MAP) Pulse Ox O2 Delivery O2 Flow Rate FiO2 04/22/17 12:00 Nasal Cannula 3.0 04/22/17 10:59 37.0 90 18 174/85 (114) 98 Nasal Cannula 3.0 04/22/17 08:00 Nasal Cannula 3.0 04/22/17 07:04 36.7 83 16 136/82 (100) 94 Nasal Cannula 3.0 04/22/17 06:22 160/87 (111) 04/22/17 04:13 36.4 92 20 161/96 (117) 93 3.0 04/22/17 04:00 Nasal Cannula 3.0 04/22/17 00:00 Nasal Cannula 3.0 04/21/17 23:42 36.3 82 20 151/85 (107) 93 Nasal Cannula 3.0 04/21/17 21:00 36.4 69 126/73 (90) 92 Nasal Cannula 3.0 04/21/17 20:00 Nasal Cannula 3.0 04/21/17 20:00 36.4 65 16 129/79 (96) 93 Nasal Cannula 3.0 04/21/17 19:15 36.6 66 16 158/82 (107) 93 Nasal Cannula 3.0 04/21/17 18:25 36.3 75 18 130/77 (94) 95 Oxymask 2.0 04/21/17 17:55 36.5 70 18 153/80 (104) 95 Nasal Cannula 2.0 04/21/17 17:40 36.4 70 18 125/67 (86) 95 Nasal Cannula 2.0 04/21/17 17:25 36.4 70 18 146/77 (100) 94 Oxymask 2.0 04/21/17 17:13 70 20 04/21/17 17:13 70 20 97 04/21/17 17:10 137/73 04/21/17 17:10 36.4 04/21/17 17:08 70 19 04/21/17 17:08 69 19 96 04/21/17 17:05 150/68 04/21/17 17:03 83 37 96 04/21/17 17:03 83 20 04/21/17 17:00 148/71 04/21/17 16:58 72 19 97 04/21/17 16:58 71 19 04/21/17 16:57 77 24 97 04/21/17 16:57 77 24 04/21/17 16:55 139/67 04/21/17 16:52 80 27 97 04/21/17 16:52 80 27 04/21/17 16:51 141/70 04/21/17 16:47 74 19 04/21/17 16:47 73 19 98 04/21/17 16:46 77 20 04/21/17 16:46 78 20 98 04/21/17 16:45 131/70 04/21/17 16:41 74 18 99 04/21/17 16:41 74 18 04/21/17 16:40 129/69 04/21/17 16:36 80 20 04/21/17 16:36 77 20 97 04/21/17 16:35 132/66 04/21/17 16:33 74 17 99 04/21/17 16:33 74 17 04/21/17 16:30 125/58 04/21/17 16:28 82 26 100 04/21/17 16:28 82 26 04/21/17 16:25 116/61 04/21/17 16:23 83 111/61 100 04/21/17 16:23 36.8 76 18 111/61 99 Mask 10 04/21/17 16:23 83 04/21/17 16:00 Nasal Cannula 3.0 Lab Results: Results Past 24 Hours Test 04/22/17 06:37 Range/Units White Blood Count 12.13 4.8-10.8 K/uL Red Blood Count 3.92 4.2-5.4 M/uL Hemoglobin 11.8 12.0-16.0 g/dL Hematocrit 34.3 37-47 % Mean Corpuscular Volume 87.5 80-100 fL Mean Corpuscular Hemoglobin 30.1 25-34 pg Mean Corpuscular Hemoglobin Concent 34.4 32-36 g/dl RDW Standard Deviation 47.7 36.4-46.3 fL RDW Coefficient of Variation 15.0 11.5-14.5 % Platelet Count 242 130-400 K/uL Mean Platelet Volume 11.6 7.4-10.4 fL Sodium Level 137 136-145 mmol/L Potassium Level 4.2 3.5-5.1 mmol/L Chloride Level 106 98-107 mmol/L Carbon Dioxide Level 26 21-32 mmol/L Anion Gap 5.0 3-11 mmol/L Blood Urea Nitrogen 12 7-18 mg/dl Creatinine 1.00 0.60-1.20 mg/dl Est Creatinine Clear Calc Drug Dose 29.9 ml/min Estimated GFR () 58.3 Estimated GFR (Non- 50.3 BUN/Creatinine Ratio 12.0 10-20 Random Glucose 139 70-99 mg/dl Calcium Level 8.1 8.5-10.1 mg/dl Total Bilirubin 1.0 0.2-1 mg/dl Direct Bilirubin 0.6 0-0.2 mg/dl Aspartate Amino Transf (AST/SGOT) 47 15-37 U/L Alanine Aminotransferase (ALT/SGPT) 26 12-78 U/L Alkaline Phosphatase 366 45-117 U/L Total Protein 5.3 6.4-8.2 gm/dl Albumin 1.9 3.4-5.0 gm/dl Globulin 3.4 2.5-4.0 gm/dl Albumin/Globulin Ratio 0.6 0.9-2 Lipase 47 73-393 U/L
[2017-04-22] MEDS ORDERED: NURSING VERBAL MED ORDER ONE ×2 (15:30→19:00)
[2017-04-22] MEDS ORDERED: SODIUM CHLORIDE 0.9% 250ML 250 ML IV SCH (15:30)
[2017-04-22] MEDS ORDERED: CLONIDINE HCL 0.1 MG TAB PO ONE (16:00)
[2017-04-22] MEDS: RANITIDINE IV 50 MG in DEXTROSE 5% 100ML 100 ML IV SCH (16:54)
[2017-04-22] MEDS ORDERED: FUROSEMIDE INJ 20 MG in SYRINGE 0 ML IV ONE (19:15)
[2017-04-23] VITALS (9 sets, daily range): BP systolic 113–138; BP diastolic 62–92; PULSE 68–144; TEMP 36.9–37.1; O2SAT 96–100
[2017-04-23] MEDS: D5W AND LACTATED RINGERS 1,000 ML IV SCH (00:45)
[2017-04-23] MEDS ORDERED: METOPROLOL TARTRATE 1 MG/ML VIAL IV STA (01:28)
[2017-04-23] MEDS ORDERED: METOPROLOL TARTRATE 1 MG/ML VIAL IV PRN (01:30)
[2017-04-23] MEDS ORDERED: FUROSEMIDE INJ 40 MG in SYRINGE 0 ML IV STA (01:34)
--- NOTE | 2017-04-23 01:40 | Progress Note ---
Progress Note Date of Service Apr 23, 2017. Progress Note COMMUNITY CHEST OFFICER ATTENDING : pt developed increased upper airway secretion was provided suction , developed rapid Afib with RVR HR between 120-150 seen at bedside , complains of SOB stat EKG shows Afib RVR @ 125 bpm coarse rales noted on lung base pt is approx ~5L vol overloaded ( noted in I/O in last 48hrs ) ordered to DC IVF @ 125 ml /hr ( got 5 liters already ) stat portable chest xray ordered Lasix 40 IV ordered X1 stat ( ECHO pre op showed Grade 2 diastolic dysfunction ) Rapid Afib RVR : possible due to acute CHF with diastolic dysfunction IV Lopressor ordered on PO Lopressor 12.5 mg PO BID cont tele monitor Cardiology already been consulted for pre op eval will need to re evaluate pt in AM for further adjustment of antiarrhythmic / diuretic regimen given recent Lap cholecystectomy , pt still has BELA drain with serosanguineous fluid -no IV heparin ordered for stroke prevention will relay to AM Attending
[2017-04-23] MEDS ORDERED: DIGOXIN IV 125 MCG in SYRINGE 9.5 ML IV STA (02:04)
--- NOTE | 2017-04-23 07:21 | DIAGNOSTIC IMAGING REPORT ---
CHEST ONE VIEW PORTABLE HISTORY: 87 years-old Female congestive heart failure. Follow-up study. COMPARISON: Chest radiograph 04/23/2017 and 04/15/2017 TECHNIQUE: Portable upright AP view of the chest. FINDINGS: The exam is very limited secondary to patient positioning, notably with chin overlying the right lung apex. The cardiac silhouette is enlarged. The lungs are hypoinflated. Large hiatal hernia with partially intrathoracic stomach is redemonstrated. There is minimal subsegmental left basilar opacity suggesting atelectasis. Moderate size right pleural effusion is noted with alveolar opacities throughout the right lung. Number vascular congestion is noted. Chondroid lesion of the left humeral head measuring up to 1.9 cm again seen suggesting an endochondroma. Right shoulder hemiarthroplasty noted. Degenerative changes are seen throughout the left shoulder and spine. Surgical clips are seen within the upper abdomen suggesting prior cholecystectomy. IMPRESSION: 1. Moderate right pleural effusion is noted with alveolar opacities throughout the right lung suspicious for pneumonia or alternatively atelectasis, new from 04/15/2017. 2. Large hiatal hernia with partially intrathoracic stomach. 3. Cardiomegaly with pulmonary vascular congestion. The above report was generated using voice recognition software. It may contain grammatical, syntax or spelling errors. Electronically signed by: Yg Adams M.D. 04/23/2017 7:20 AM Dictated Date/Time: 04/23/2017 7:17 AM
--- NOTE | 2017-04-23 07:47 | DIAGNOSTIC IMAGING REPORT ---
CHEST ONE VIEW PORTABLE HISTORY: Short of breath. COMPARISON: Chest 04/15/2017. FINDINGS: Low lung volumes. The patient's chin overlies the lung apices. No definite pneumothorax. Large hiatus hernia. Mild interstitial pulmonary edema has progressed. There are [id number] bilateral pleural effusions and bibasilar densities which have also increased. Right shoulder prosthesis. The heart remains mildly enlarged. IMPRESSION: Progression of the mild interstitial pulmonary edema as well as the small to moderate bilateral pleural effusions. Bibasilar densities are nonspecific but favor atelectasis. Electronically signed by: Jamarcus Vargas M.D. 04/23/2017 7:45 AM Dictated Date/Time: 04/23/2017 7:44 AM
[2017-04-23] MEDS: METOPROLOL TARTRATE 25 MG TAB PO SCH ×2 (08:06→20:27)
[2017-04-23] MEDS: DOCUSATE SODIUM 100 MG CAP PO SCH ×2 (08:06→20:28)
[2017-04-23] MEDS: ASPIRIN 81 MG ECTAB PO SCH (08:06)
[2017-04-23] MEDS: METRONIDAZOLE / NSS 500 MG in PREMIXED NSS 100 ML IV SCH ×2 (08:06)
[2017-04-23] MEDS: HEPARIN SOD 5000 UNIT/0.5 ML CARP SQ SCH ×2 (08:09→20:32)
[2017-04-23] MEDS: RANITIDINE HCL 150 MG TAB PO SCH (08:55)
[2017-04-23] MEDS ORDERED: METOPROLOL TARTRATE 25 MG TAB PO SCH (09:00)
--- NOTE | 2017-04-23 10:22 | Gastroenterology Progress Note ---
Progress Note Date of Service: Apr 23, 2017 Subjective Pt evaluation today including: conversation w/ patient, physical exam, chart review, lab review, review of inpatient medication list Pt denies any n/v, pain. Ate pudding today. LFTs trending down. Per RN report last night had Afib, primary hospitalist considering Cardiology consult. Review of Systems Constitutional: No fever Respiratory: No cough, No shortness of breath Cardiac: No chest pain Abdomen: No pain, No nausea, No vomiting Medications Current Inpatient Medications Medications (Trade) Dose Ordered Sig/Pricila Route Start Time Stop Time Status Last Admin Dose Admin Heparin Sodium (Porcine) (Heparin Sq 5000 Unit/0.5ml) 5,000 unit Q12 SQ 04/15/17 21:00 05/15/17 20:59 04/23/17 08:09 5,000 UNIT Ondansetron HCl (Zofran Inj) 4 mg Q6H PRN IV 04/15/17 16:15 05/15/17 16:14 04/20/17 06:28 4 MG Aspirin (Ecotrin Tab) 81 mg DAILY PO 04/16/17 09:00 05/16/17 08:59 04/23/17 08:06 81 MG Docusate Sodium (coLACE CAP) 100 mg BID PO 04/15/17 21:00 05/15/17 20:59 04/23/17 08:06 100 MG Nitroglycerin (Nitrostat Tab) 0.4 mg UD PRN SL 04/15/17 16:30 05/15/17 16:29 Polyethylene (Miralax Powder Packet) 17 gm DAILY PRN PO 04/15/17 16:30 05/15/17 16:29 04/19/17 15:55 17 GM Senna/Docusate Sodium (Senokot S Tab) 1 tab DAILY PRN PO 04/15/17 16:30 05/15/17 16:29 Calcium/Vitamin D (Caltrate Plus Tab) 1 tab DAILY PO 04/16/17 09:00 05/16/17 08:59 Future Hold 04/16/17 08:22 1 TAB Tramadol HCl (Ultram Tab) 50 mg Q6H PRN PO 04/16/17 08:00 05/16/17 07:59 04/18/17 09:18 50 MG Miconazole Nitrate (Desenex Powder) 1 appln PRN PRN EXT 04/16/17 10:15 05/16/17 10:14 Metronidazole 500 mg/Prmx 100 ml @ 100 mls/hr Q8H IV 04/16/17 16:00 04/26/17 15:59 04/23/17 08:06 100 MLS/HR Metoprolol Tartrate (Lopressor Tab) 12.5 mg BID PO 04/18/17 21:00 05/18/17 20:59 04/23/17 08:06 12.5 MG Morphine Sulfate (MoRPHine SULFATE INJ) 2 mg Q1H PRN IV 04/20/17 18:00 05/04/17 17:59 04/21/17 11:48 2 MG Metoprolol Tartrate (Lopressor Iv) 5 mg Q6 PRN IV 04/23/17 01:30 05/23/17 01:29 Ranitidine HCl (zANTac TAB) 150 mg QAM PO 04/23/17 09:00 05/23/17 08:59 04/23/17 08:55 150 MG Objective Vital Signs Date Time Temp Pulse Resp B/P (MAP) Pulse Ox O2 Delivery O2 Flow Rate FiO2 04/23/17 08:00 Nasal Cannula 3.0 04/23/17 07:03 37.1 83 16 113/75 (88) 100 3.0 04/23/17 04:59 37.0 82 18 129/83 (98) 96 Nasal Cannula 2.0 04/23/17 04:00 Nasal Cannula 3.0 04/23/17 02:35 105 04/23/17 01:41 144 18 138/92 (107) 04/23/17 01:40 129 138/92 04/23/17 00:00 Nasal Cannula 3.0 04/22/17 23:35 36.8 78 126/62 (83) 96 Nasal Cannula 3.0 04/22/17 20:59 89 148/86 (106) 04/22/17 20:00 Nasal Cannula 3.0 04/22/17 18:48 36.5 98 20 95 Nasal Cannula 3.0 04/22/17 18:35 148/86 (106) 04/22/17 16:00 Nasal Cannula 3.0 04/22/17 15:31 169/69 (102) 04/22/17 14:31 36.8 80 20 175/106 (129) 95 2.0 04/22/17 12:00 Nasal Cannula 3.0 04/22/17 10:59 37.0 90 18 174/85 (114) 98 Nasal Cannula 3.0 Physical Exam General Appearance: WD/WN, no apparent distress Eyes: normal inspection, PERRL, EOMI Neck: supple, no JVD, trachea midline Respiratory/Chest: no respiratory distress, no accessory muscle use, + decreased breath sounds Cardiovascular: regular rate, rhythm, no gallop, no murmur Abdomen: normal bowel sounds, non tender, soft Extremities: normal inspection, no pedal edema, no calf tenderness Neurologic/Psych: alert, + disoriented (oriented to self and place only; has underlying dementia) Skin: normal color, no jaundice, no rash Laboratory Results Last 24 Hours Test 04/23/17 01:23 04/23/17 05:44 Bedside Glucose 118 mg/dl Pro-B-Type Natriuretic Peptide 6210 pg/ml Assessment and Plan Patient is a 87 year old female w cholecystitis s/p lap cholecystectomy, positive intraop cholangiogram for CBD stones. Underwent ERCP w stone extraction , sphincterectomy and dilation on 04/21. LFTs trending down, Lipase normal. CBC stable. Plans - Monitor LFTs - Advance diet as tolerated. - GI will sign off; call if new questions/concerns arise. I saw and evaluated the patient. Her liver enzymes appeared to be improving after her recent ERCP with Dr. Diego. She will follow-up with her regular GI provider should any recurrent symptoms or problems occur. Please call with any questions
[2017-04-23] MEDS: TRAMADOL HCL 50 MG TAB PO PRN (11:18)
--- NOTE | 2017-04-23 11:22 | CARDIOLOGY PROGRESS NOTE ---
DATE: 04/23/2017 TIME: 10:49 a.m. SUBJECTIVE: The patient was seen and examined at the bedside. Initially evaluated by the undersigned during this hospitalization for preoperative risk stratification. The patient underwent laparoscopic cholecystectomy on April 22. She was then treated with intravenous hydration with lactated Ringer's. She received approximately total of 5 liters. Last evening, the patient was noted to be short of breath with increased upper airway secretions. She was evaluated by the hospitalist. The patient developed atrial fibrillation with rapid ventricular response. She received a dose of Lasix as well as intravenous Lopressor. She spontaneously converted to normal sinus rhythm. She remains in sinus rhythm on telemetry this morning. She is comfortable in bed. She has significant underlying dementia and unable to offer any meaningful history. No significant electrolyte derangement noted on lab testing last night. Intravenous hydration has been discontinued. Chest x-ray demonstrated a moderate right pleural effusion with possible right-sided infiltrate versus atelectasis and mild pulmonary vascular congestion. REVIEW OF SYSTEMS: Unable to be obtained as the patient has underlying dementia and is a poor historian. LABORATORY DATA: ProBNP 6210. Repeat basic metabolic panel was not performed today. Telemetry demonstrates sinus rhythm currently. PHYSICAL EXAMINATION: VITAL SIGNS: Temperature is 37.1 degrees centigrade, pulse 83 beats per minute and regular, respiratory rate 16 breaths per minute, and blood pressure 113/75. SaO2 is 100% on 3 liters. GENERAL: NAD, poor historian. HEENT: Mucous membranes dry. No scleral icterus. Conjunctivae pink. NECK: Supple without JVD or HJR at 30 degrees supine. HEART: Regular with a normal S1 and S2. No murmur, rub or gallop. LUNGS: Demonstrate diminished breath sounds at the bases bilaterally. No rhonchi or wheeze. No rales appreciated. ABDOMEN: Soft. Diffusely tender. Hypoactive bowel sounds. EXTREMITIES: Warm and dry without clubbing, cyanosis or edema in the lower extremities. There is mild edema of her right forearm. NEUROLOGIC: Unable to be assessed due to the patient's dementia. She moves all extremities freely. No facial asymmetry. FINAL IMPRESSION: 1. Postoperative paroxysmal atrial fibrillation. 2. Mild decompensated diastolic heart failure secondary to intravenous hydration in the postoperative setting. 3. Cholecystitis, postoperative day #1 laparoscopic cholecystectomy. PLAN AND RECOMMENDATIONS: I will increase metoprolol to 12.5 mg t.i.d. I have also ordered a repeat basic metabolic panel and serum magnesium level to assess electrolytes. We will replace as needed. I would not add anticoagulation for this brief episode of postoperative paroxysmal atrial fibrillation. Continue to monitor telemetry.
[2017-04-23] MEDS ORDERED: AMOXICILLIN/CLAVULANATE TAB 500 MG TAB PO ONE (11:45)
[2017-04-23 11:49] LABS: BUN/CREATININE RATIO 12.6 (10-20); CREATININE 0.98 mg/dl (0.60-1.20); MAGNESIUM 1.5 mg/dl (1.8-2.4); POTASSIUM 3.6 mmol/L (3.5-5.1)
[2017-04-23 12:12] LABS: PHOSPHORUS 1.4 mg/dl (2.5-4.9)
[2017-04-23] MEDS ORDERED: POTASSIUM PHOS 3 MMOL/1 ML INFUSION IV STA (12:21)
[2017-04-23] MEDS ORDERED: POTASSIUM PHOSPHATE INJ 21 MMOL in SODIUM CHLORIDE 0.9% 500ML 500 ML IV SCH (13:00)
[2017-04-23] MEDS ORDERED: MAGNESIUM OXIDE 400 MG TAB PO ONE (13:00)
--- NOTE | 2017-04-23 13:42 | Progress Note ---
Internal Med Progress Note Date of Service: Apr 23, 2017. Provider Documentation: SUBJECTIVE: The patient was seen and examined No complaints today No nausea and or vomiting No CP,Palpitation,SOB Has had AF with RVR last night and required 1 dose of Digoxin SR this AM without any symptoms OBJECTIVE: Vital Signs-as noted below Exam: General-No distress at rest Eyes-normal ENT-normal Neck-supple Lungs-clear Heart-Regular ,no murmur appreciated Abdomen-soft,mildly tender RUQ,bowel sound present Extremities-No edema Neuro-AAOx3 Generally weak Lab data as noted below. ASSESSMENT & PLAN: Acute cholecystitis with Choledocholithiasis Abdomen USD: suggestive of acute cholecystis and biliary obstruction IV fluids,Pain Medication and IV Ceftriaxone and Flagyl Appreciate Surgery input S/P Lap Cholecystectomy Perioperative cholangiogram showed Choledocholithiasis GI consulted-appreciate Input S/O ERCP -sphincterotomy done No more symptoms UTI: Urine culture:Proteus Received Ceftriaxone WCC increasing Will start Augmentin which will cover GI related Bug as well NSVT: Had a short run of VT overnight. Patient asymptomatic Monitor electrolytes ECHO: * Ejection Fraction = 55-60%. * There is mild concentric left ventricular hypertrophy. * Mild basal posterior wall hypokinesis, otherwise, normal wall motion. * Grade I diastolic dysfunction, (abnormal relaxation pattern). * Aortic valve sclerosis mild, without significant aortic valvular stenosis. * There is mild mitral regurgitation. * There is trace tricuspid regurgitation. * Doppler findings do not suggest pulmonary hypertension. Appreciate Cardiology Input Continue BB and increased dose due to RVR in last night No more events Encephalopathy: Likely metabolic from infection H/O baseline dementia CT head:No acute intracranial findings Resolved WILNER DEHYDRATION Clinically dry, Cr 1.3 on presentation Continue IV fluids Cr is back to baseline AMBULATORY DYSFUNCTION Fall precautions PT/OT GI prophylaxis Has GERD Continue PPI DVT Px Heparin SQ CODE STATUS DNR per discussion with patient's son Miki Cutler at bedside who is POA. . DISPOSITION May need placement; social media developer consulted Monitor in Tele Likely to discharge in a day or two Has had a detailed discussion with the Sons Answered all of their questions Vital Signs: Date Time Temp Pulse Resp B/P (MAP) Pulse Ox O2 Delivery O2 Flow Rate FiO2 04/23/17 12:00 98 Nasal Cannula 3.0 04/23/17 11:25 36.9 68 20 121/75 (90) 98 3.0 8/24/17 08:00 Nasal Cannula 3.0 04/23/17 07:03 37.1 83 16 113/75 (88) 100 3.0 04/23/17 04:59 37.0 82 18 129/83 (98) 96 Nasal Cannula 2.0 04/23/17 04:00 Nasal Cannula 3.0 04/23/17 02:35 105 04/23/17 01:41 144 18 138/92 (107) 04/23/17 01:40 129 138/92 04/23/17 00:00 Nasal Cannula 3.0 04/22/17 23:35 36.8 78 126/62 (83) 96 Nasal Cannula 3.0 04/22/17 20:59 89 148/86 (106) 04/22/17 20:00 Nasal Cannula 3.0 04/22/17 18:48 36.5 98 20 95 Nasal Cannula 3.0 04/22/17 18:35 148/86 (106) 04/22/17 16:00 Nasal Cannula 3.0 04/22/17 15:31 169/69 (102) 04/22/17 14:31 36.8 80 20 175/106 (129) 95 2.0 Lab Results: Results Past 24 Hours Test 04/23/17 01:23 04/23/17 05:44 04/23/17 11:06 Range/Units Bedside Glucose 118 70-90 mg/dl Pro-B-Type Natriuretic Peptide 6210 0-1800 pg/ml Sodium Level 137 136-145 mmol/L Potassium Level 3.6 3.5-5.1 mmol/L Chloride Level 102 98-107 mmol/L Carbon Dioxide Level 32 21-32 mmol/L Anion Gap 3.0 3-11 mmol/L Blood Urea Nitrogen 12 7-18 mg/dl Creatinine 0.98 0.60-1.20 mg/dl Est Creatinine Clear Calc Drug Dose 29.6 ml/min Estimated GFR () 59.7 Estimated GFR (Non- 51.5 BUN/Creatinine Ratio 12.6 10-20 Random Glucose 109 70-99 mg/dl Calcium Level 8.0 8.5-10.1 mg/dl Phosphorus Level 1.4 2.5-4.9 mg/dl Magnesium Level 1.5 1.8-2.4 mg/dl
[2017-04-23] MEDS: AMOXICILLIN/CLAVULANATE TAB 500 MG TAB PO SCH (16:48)
[2017-04-23] MEDS ORDERED: NURSING VERBAL MED ORDER ONE (19:00)
[2017-04-23] MEDS ORDERED: SODIUM CHLORIDE 0.9% 500ML 250 ML IV ONE (19:45)
[2017-04-23] MEDS: MAGNESIUM OXIDE 400 MG TAB PO SCH (20:28)
[2017-04-24] VITALS: BP 122/70; PULSE 67; TEMP 36.4; O2SAT 93
[2017-04-24 04:44] VITALS: BP 146/76; PULSE 76; TEMP 36.3; O2SAT 100
[2017-04-24 07:27] LABS: HEMATOCRIT 33.1 % (37-47); MEAN CELL VOLUME 89.2 fL (80-100); MEAN CORPUSCULAR HEMOGLOBIN 28.6 pg (25-34); MEAN PLATELET VOLUME 10.7 fL (7.4-10.4); PLATELET COUNT 288 K/uL (130-400); RED BLOOD COUNT 3.71 M/uL (4.2-5.4); WHITE BLOOD COUNT 11.29 K/uL (4.8-10.8)
--- NOTE | 2017-04-24 07:43 | Surgery Progress Note ---
Surgery Progress Note Date of Service Apr 24, 2017. Subjective Post OP Day: 4 + feeling well, + diet (tolerated diet but appetite not back to preop) Denies pain Objective Vital Signs: Date Time Temp Pulse Resp B/P (MAP) Pulse Ox O2 Delivery O2 Flow Rate FiO2 04/24/17 04:44 36.3 76 16 146/76 (99) 100 3.0 04/24/17 04:00 Nasal Cannula 3.0 04/24/17 00:00 Nasal Cannula 3.0 04/24/17 00:00 36.4 67 20 122/70 (87) 93 Room Air 04/23/17 20:00 98 Nasal Cannula 3.0 04/23/17 19:37 37.0 74 16 123/67 (85) 97 Nasal Cannula 3.0 04/23/17 16:00 98 Nasal Cannula 3.0 04/23/17 15:39 36.9 72 18 125/62 (83) 98 3.0 04/23/17 12:00 98 Nasal Cannula 3.0 04/23/17 11:25 36.9 68 20 121/75 (90) 98 3.0 04/23/17 08:00 Nasal Cannula 3.0 Physical Exam: BELA drainage (225 cc yesterday, 45 cc last shift, serous) Abdomen: normal bowel sounds, non tender, non distended, soft Laboratory Results: Results Past 24 Hours Test 04/23/17 11:06 04/24/17 07:16 Range/Units Sodium Level 137 136-145 mmol/L Potassium Level 3.6 3.5-5.1 mmol/L Chloride Level 102 98-107 mmol/L Carbon Dioxide Level 32 21-32 mmol/L Anion Gap 3.0 3-11 mmol/L Blood Urea Nitrogen 12 7-18 mg/dl Creatinine 0.98 0.60-1.20 mg/dl Est Creatinine Clear Calc Drug Dose 29.6 ml/min Estimated GFR () 59.7 Estimated GFR (Non- 51.5 BUN/Creatinine Ratio 12.6 10-20 Random Glucose 109 70-99 mg/dl Calcium Level 8.0 8.5-10.1 mg/dl Phosphorus Level 1.4 2.5-4.9 mg/dl Magnesium Level 1.5 1.8-2.4 mg/dl White Blood Count 11.29 4.8-10.8 K/uL Red Blood Count 3.71 4.2-5.4 M/uL Hemoglobin 10.6 12.0-16.0 g/dL Hematocrit 33.1 37-47 % Mean Corpuscular Volume 89.2 80-100 fL Mean Corpuscular Hemoglobin 28.6 25-34 pg Mean Corpuscular Hemoglobin Concent 32.0 32-36 g/dl RDW Standard Deviation 49.6 36.4-46.3 fL RDW Coefficient of Variation 15.3 11.5-14.5 % Platelet Count 288 130-400 K/uL Mean Platelet Volume 10.7 7.4-10.4 fL Assessment & Plan S/P lap lizabeth and ERCP Feels well today Diet as per GI Physical therapy Can D/C drain prior to D/C
[2017-04-24] MEDS: AMOXICILLIN/CLAVULANATE TAB 500 MG TAB PO SCH (07:51)
[2017-04-24] MEDS: DOCUSATE SODIUM 100 MG CAP PO SCH (07:51)
[2017-04-24] MEDS: ASPIRIN 81 MG ECTAB PO SCH (07:51)
[2017-04-24] MEDS: MAGNESIUM OXIDE 400 MG TAB PO SCH (07:51)
[2017-04-24] MEDS: RANITIDINE HCL 150 MG TAB PO SCH (07:51)
[2017-04-24] MEDS: METOPROLOL TARTRATE 25 MG TAB PO SCH (07:52)
[2017-04-24] MEDS: HEPARIN SOD 5000 UNIT/0.5 ML CARP SQ SCH (07:58)
[2017-04-24 08:00] VITALS: BP 148/75; PULSE 73; TEMP 36.9; O2SAT 96
[2017-04-24 08:13] LABS: BUN/CREATININE RATIO 20.7 (10-20); CALCIUM 7.9 mg/dl (8.5-10.1); CREATININE 0.86 mg/dl (0.60-1.20); MAGNESIUM 1.7 mg/dl (1.8-2.4); PHOSPHORUS 2.6 mg/dl (2.5-4.9); POTASSIUM 4.2 mmol/L (3.5-5.1)
[2017-04-24 11:12] VITALS: BP 141/89; PULSE 68; TEMP 36.9; O2SAT 97
--- NOTE | 2017-04-24 12:48 | Progress Note ---
Internal Med Progress Note Date of Service: Apr 24, 2017. Provider Documentation: SUBJECTIVE: The patient was seen and examined No complaints today No nausea and or vomiting No CP,Palpitation,SOB Has had AF with RVR last night on 04/23/17 and required 1 dose of Digoxin SR this AM without any symptoms Remains stable as of this morning Denies any symptoms OBJECTIVE: Vital Signs-as noted below Exam: General-No distress at rest Eyes-normal ENT-normal Neck-supple Lungs-clear Heart-Regular ,no murmur appreciated Abdomen-soft,mildly tender RUQ,bowel sound present Extremities-No edema Neuro-AAOx3 Generally weak Lab data as noted below. ASSESSMENT & PLAN: Acute cholecystitis with Choledocholithiasis Abdomen USD: suggestive of acute cholecystis and biliary obstruction IV fluids,Pain Medication and IV Ceftriaxone and Flagyl Appreciate Surgery input S/P Lap Cholecystectomy Perioperative cholangiogram showed Choledocholithiasis GI consulted-appreciate Input S/O ERCP -sphincterotomy done No more symptoms Drain can come out before discharge UTI: Urine culture:Proteus Received Ceftriaxone WCC increasing Will start Augmentin which will cover GI related Bug as well NSVT: Had a short run of VT overnight. Patient asymptomatic Monitor electrolytes ECHO: * Ejection Fraction = 55-60%. * There is mild concentric left ventricular hypertrophy. * Mild basal posterior wall hypokinesis, otherwise, normal wall motion. * Grade I diastolic dysfunction, (abnormal relaxation pattern). * Aortic valve sclerosis mild, without significant aortic valvular stenosis. * There is mild mitral regurgitation. * There is trace tricuspid regurgitation. * Doppler findings do not suggest pulmonary hypertension. Appreciate Cardiology Input Continue BB and increased dose due to RVR in last night No more events Remains stable Encephalopathy: Likely metabolic from infection H/O baseline dementia CT head:No acute intracranial findings Resolved WILNER DEHYDRATION Clinically dry, Cr 1.3 on presentation Continue IV fluids Cr is back to baseline AMBULATORY DYSFUNCTION Fall precautions PT/OT-recommended Rehab GI prophylaxis Has GERD Continue PPI DVT Px Heparin SQ CODE STATUS DNR per discussion with patient's son Miki Cutler at bedside who is POA. . DISPOSITION May need placement; child welfare social worker consulted Monitor in Tele Likely to discharge in a day or two Has had a detailed discussion with the Sons Answered all of their questions Discussed with the Son again today Vital Signs: Date Time Temp Pulse Resp B/P (MAP) Pulse Ox O2 Delivery O2 Flow Rate FiO2 04/24/17 11:12 36.9 68 97 141/89 (106) 97 Nasal Cannula 3.0 04/24/17 08:00 36.9 73 20 148/75 (99) 96 Nasal Cannula 3.0 04/24/17 08:00 Nasal Cannula 3.0 04/24/17 04:44 36.3 76 16 146/76 (99) 100 3.0 04/24/17 04:00 Nasal Cannula 3.0 04/24/17 00:00 Nasal Cannula 3.0 04/24/17 00:00 36.4 67 20 122/70 (87) 93 Room Air 04/23/17 20:00 98 Nasal Cannula 3.0 04/23/17 19:37 37.0 74 16 123/67 (85) 97 Nasal Cannula 3.0 04/23/17 16:00 98 Nasal Cannula 3.0 04/23/17 15:39 36.9 72 18 125/62 (83) 98 3.0 Lab Results: Results Past 24 Hours Test 04/24/17 07:16 Range/Units White Blood Count 11.29 4.8-10.8 K/uL Red Blood Count 3.71 4.2-5.4 M/uL Hemoglobin 10.6 12.0-16.0 g/dL Hematocrit 33.1 37-47 % Mean Corpuscular Volume 89.2 80-100 fL Mean Corpuscular Hemoglobin 28.6 25-34 pg Mean Corpuscular Hemoglobin Concent 32.0 32-36 g/dl RDW Standard Deviation 49.6 36.4-46.3 fL RDW Coefficient of Variation 15.3 11.5-14.5 % Platelet Count 288 130-400 K/uL Mean Platelet Volume 10.7 7.4-10.4 fL Sodium Level 141 136-145 mmol/L Potassium Level 4.2 3.5-5.1 mmol/L Chloride Level 106 98-107 mmol/L Carbon Dioxide Level 28 21-32 mmol/L Anion Gap 7.0 3-11 mmol/L Blood Urea Nitrogen 18 7-18 mg/dl Creatinine 0.86 0.60-1.20 mg/dl Est Creatinine Clear Calc Drug Dose 34.3 ml/min Estimated GFR () 69.9 Estimated GFR (Non- 60.3 BUN/Creatinine Ratio 20.7 10-20 Random Glucose 81 70-99 mg/dl Calcium Level 7.9 8.5-10.1 mg/dl Phosphorus Level 2.6 2.5-4.9 mg/dl Magnesium Level 1.7 1.8-2.4 mg/dl
[2017-04-24] MEDS ORDERED: MGNO400 PO (12:53)
[2017-04-24] MEDS ORDERED: LCTX PO (12:53)
[2017-04-24] MEDS ORDERED: AMOX1TAB42 PO (12:53)
[2017-04-24] MEDS ORDERED: LPR25 PO (12:53)
--- NOTE | 2017-04-24 12:59 | Discharge Instructions ---
Discharge Instructions Date of Service Apr 24, 2017. Admission Reason for Admission: Altered Mental Status, Uti Discharge Discharge Diagnosis / Problem: Acute Cholecystitis s/o Lap Cholecystectomy,CBD stone s/p ERCP,AF Discharge Goals Goal(s): Prevent Disease Progression Activity Recommendations Activity Level: Assistance Required Therapies: Physical Therapy, Occupational Therapy . Additional Information Patient informed of condition: Yes Advance Directives: No DNR: Yes Level of Care: Skilled Communicable Disease: No Prognosis: Stable Oxygen at (LPM): 2-3 liters /min via NC keep saturation >89% Grijalva Catheter: Yes (Can come out in 3-5 days) Instructions / Follow-Up Instructions / Follow-Up Please make an appointment with your PCP in 1 week Current Hospital Diet Patient's current hospital diet: Regular Diet Discharge Diet Recommended Diet: Regular Diet Procedures Procedures Performed: Endoscopic Retrograde Cholangiopancreatogram with sphincterotomy, dilation, and stone extraction Pending Studies Studies pending at discharge: no Medical Emergencies . Who to Call and When: Medical Emergencies: If at any time you feel your situation is an emergency, please call 911 immediately. . Non-Emergent Contact Non-Emergency issues call your: Primary Care Provider . Past History Medical & Surgical History: (1) Acute cholecystitis (2) UTI (urinary tract infection) (3) Altered mental status (4) Dementia (5) History of open reduction and internal fixation (ORIF) procedure (6) H/O shoulder replacement . "Provider Documentation" section prepared by Huong Suarez. . Core Measure Problem Core Measures: None
[2017-04-24 13:02] VITALS: BP 141/89; PULSE 68; TEMP 36.9; O2SAT 97
--- NOTE | 2017-04-25 08:24 | Discharge Summary ---
Discharge Summary Date of Service Apr 25, 2017. Discharge Summary Admission Date: Apr 15, 2017 at 15:46 Discharge Date: Apr 24, 2017 Principal Diagnosis: Acute Cholecystitis s/o Lap Cholecystectomy,CBD stone s/p ERCP,AF Secondary Diagnoses/Problems: Please see the H&P and Hospital Progress note Procedures: Lap Cholecystectomy,ERCP Consultations: GI and Surgery Medication Reconciliation New Medications: Lactobacillus Acidophilus (Lactinex) Tab 2 TAB PO BID, #30 TAB Amoxicillin & Pot Clavulanate (Amoxicillin/Clavulanate P) 1 Tab Tab 500 MG PO BIDM for 3 Days, #6 TAB Magnesium Oxide (Magnesium-Oxide) 400 Mg Tab 400 MG PO BID for 30 Days, #60 TAB Metoprolol Tartrate (Lopressor) 25 Mg Tab 12.5 MG PO TID for 30 Days, #45 TAB Continued Medications: Aspirin (Aspirin 81) 81 Mg Tab 81 MG PO DAILY Calcium Carbonate (Calcium 600) 600 Mg Tab 1 TAB PO DAILY Docusate Sodium (Docusate Sodium) 100 Mg Cap 100 MG PO BID for 10 Days, CAP Multiple Vitamin (One Daily) 1 Tab Tab 1 TAB PO DAILY Nitroglycerin (Nitrostat) 0.4 Mg/1 Tab Subl 0.4 MG SL UD PRN for Chest Pain for 10 Days Omeprazole (Eq Omeprazole) 20 Mg Tab 20 MG PO DAILY Polyethylene (Miralax) 17 Gm Pow 17 GM PO DAILY PRN for Constipation Sennosides-Docusate Sodium (Doc-Q-Lax) 1 Tab Tab 1 TAB PO DAILY PRN for Constipation Admission Information HPI (per Admitting provider): This is an 87 y/o female with PMH of dementia, GERD, and other problems listed below who presents to the ED with altered mental status. Hx obtained from son due to AMS. Per her son, patient was at baseline yesterday, then this morning she was more confused than usual. Son states she could not follow commands correctly and was unable to button her shirt. She was incontinent of stool this morning which was abnormal for her. At baseline she is forgetful and disoriented to year, but oriented to person and place, but this morning was unable to recall her son's name or her own last name. Son states she was lethargic and had difficulty standing from her recliner due to generalized weakness. She usually ambulates with a walker. No recent falls. 911 was called and patient was brought to ER by EMS. Son states she is improving but still not back to baseline. Patient is oriented to self and her son, but disoriented to place and time. She is unable to recall why she was brought here. She denies any complaints including chest pain or any other pain. Son states her PO intake has been decreased to 2 meals per day for 2 months. Patient is chronically incontinent of urine. No recent fevers, chills, URI symptoms, aspiration, cough , SOB, chest pain, abdominal pain, vomiting, diarrhea, urinary odor. There were no stroke like symptoms such as facial droop, slurred speech, or unilateral weakness. No history of cardiac disorder, per her son. Past Medical/Surgical History Medical Problems: (1) Dementia Status: Chronic (2) GERD (gastroesophageal reflux disease) Status: Chronic (3) Osteoporosis Status: Chronic Surgical Problems: (1) H/O shoulder replacement Status: Chronic (2) History of open reduction and internal fixation (ORIF) procedure Permanent Comment: right hip 2014 Status: Chronic Family History Hypertension Social History Smoking Status: Never Smoker Alcohol Use: none Marital Status: Housing status: lives with family (with son) Occupational Status: retired Allergies Coded Allergies: No Known Allergies (Unverified , 04/15/17) Home Medications Scheduled Aspirin (Aspirin 81), 81 MG PO DAILY Calcium Carbonate (Calcium 600), 1 TAB PO DAILY Docusate Sodium (Docusate Sodium), 100 MG PO BID Multiple Vitamin (One Daily), 1 TAB PO DAILY Omeprazole (Eq Omeprazole), 20 MG PO DAILY Scheduled PRN Nitroglycerin (Nitrostat), 0.4 MG SL UD PRN for Chest Pain Polyethylene (Miralax), 17 GM PO DAILY PRN for Constipation Sennosides-Docusate Sodium (Doc-Q-Lax), 1 TAB PO DAILY PRN for Constipation Review of Systems Unable to complete full ROS due to patient's mental status. Physical Ex - H&P Physical Exam Vital Signs Date Time Temp Pulse Resp B/P (MAP) Pulse Ox O2 Delivery O2 Flow Rate FiO2 04/15/17 15:29 79 21 132/78 96 Room Air 04/15/17 14:21 76 18 116/85 97 Room Air 04/15/17 13:48 97 18 96 Room Air 8/16/17 13:16 70 04/15/17 12:45 96 Room Air 04/15/17 12:00 37.0 86 18 146/98 96 Room Air General Appearance: no apparent distress, + thin, + pertinent finding ( pleasantly confused frail elderly female, son at bedside) Head: normocephalic, atraumatic Eyes: normal inspection, PERRL, EOMI ENT: hearing grossly normal, pharynx normal, + pertinent finding (dry oral mucosa. mostly edentulous.) Neck: supple, trachea midline Respiratory/Chest: lungs clear, normal breath sounds, no respiratory distress Cardiovascular: regular rate, rhythm, no murmur, normal peripheral pulses Abdomen/GI: normal bowel sounds, non tender, soft Extremities/Musculoskelatal: no calf tenderness, no pedal edema Neurologic/Psych: supervisor marble II-XII nml as tested (no dysarthria or facial droop), alert, normal mood/affect, + disoriented (oriented to herself and her son, disoriented to place and date), + pertinent finding (pleasantly confused, repetitive. follows basic commands. no focal motor deficit. csm consultant strength 5/5 bilateral upper extremities. bilateral UE generally weak, able to lift off the bed equally,strength 4/5. ) Skin: normal color, warm/dry, + pertinent finding (erythema on buttocks per ER nursing staff) Diagnostics - H&P Diagnostics Laboratory Results Results Past 24 Hours Test 04/15/17 13:27 04/15/17 13:30 04/15/17 13:45 Range/Units Bedside Glucose 96 70-90 mg/dl White Blood Count 15.13 4.8-10.8 K/uL Red Blood Count 4.56 4.2-5.4 M/uL Hemoglobin 13.5 12.0-16.0 g/dL Hematocrit 41.3 37-47 % Mean Corpuscular Volume 90.6 80-100 fL Mean Corpuscular Hemoglobin 29.6 25-34 pg Mean Corpuscular Hemoglobin Concent 32.7 32-36 g/dl Platelet Count 268 130-400 K/uL Mean Platelet Volume 12.2 7.4-10.4 fL Neutrophils (%) (Auto) 91.4 % Lymphocytes (%) (Auto) 2.2 % Monocytes (%) (Auto) 5.8 % Eosinophils (%) (Auto) 0.1 % Basophils (%) (Auto) 0.2 % Neutrophils # (Auto) 13.84 1.4-6.5 K/uL Lymphocytes # (Auto) 0.33 1.2-3.4 K/uL Monocytes # (Auto) 0.87 0.11-0.59 K/uL Eosinophils # (Auto) 0.02 0-0.5 K/uL Basophils # (Auto) 0.03 0-0.2 K/uL RDW Standard Deviation 46.9 36.4-46.3 fL RDW Coefficient of Variation 14.3 11.5-14.5 % Immature Granulocyte % (Auto) 0.3 % Immature Granulocyte # (Auto) 0.04 0.00-0.02 K/uL Prothrombin Time 11.3 9.0-12.0 SECONDS Prothromb Time International Ratio 1.1 0.9-1.1 Sodium Level 138 136-145 mmol/L Potassium Level 4.5 3.5-5.1 mmol/L Chloride Level 104 98-107 mmol/L Carbon Dioxide Level 27 21-32 mmol/L Anion Gap 7.0 3-11 mmol/L Blood Urea Nitrogen 22 7-18 mg/dl Creatinine 1.30 0.60-1.20 mg/dl Est Creatinine Clear Calc Drug Dose 21.9 ml/min Estimated GFR () 42.4 Estimated GFR (Non- 36.6 BUN/Creatinine Ratio 16.8 10-20 Random Glucose 96 70-99 mg/dl Calcium Level 9.0 8.5-10.1 mg/dl Total Bilirubin 3.8 0.2-1 mg/dl Direct Bilirubin 2.7 0-0.2 mg/dl Aspartate Amino Transf (AST/SGOT) 150 15-37 U/L Alanine Aminotransferase (ALT/SGPT) 88 12-78 U/L Alkaline Phosphatase 820 45-117 U/L Troponin I 0.105 0-0.045 ng/ml Total Protein 7.2 6.4-8.2 gm/dl Albumin 2.9 3.4-5.0 gm/dl Lipase 100 73-393 U/L Urine Color DK YELLOW Urine Appearance CLEAR CLEAR Urine pH >= 9.0 4.5-7.5 Urine Specific [place] 1.017 1.000-1.030 Urine Protein 1+ NEG Urine Glucose (UA) NEG NEG Urine Ketones TRACE NEG Urine Occult Blood NEG NEG Urine Nitrite POS NEG Urine Bilirubin 1+ NEG Urine Urobilinogen NEG NEG Urine Leukocyte Esterase MODERATE NEG Urine WBC (Auto) >30 0-5 /hpf Urine RBC (Auto) 0-4 0-4 /hpf Urine Hyaline Casts (Auto) 5-10 0-5 /lpf Urine Epithelial Cells (Auto) 0-5 0-5 /lpf Urine Bacteria (Auto) 4+ NEG Microbiology Results 04/15/17 Urine Culture, Received Pending Diagnostic Radiology CT HEAD WITHOUT CONTRAST (CT) IMPRESSION: No acute intracranial findings SINGLE VIEW CHEST IMPRESSION: 1. Cardiomegaly with no acute cardiopulmonary abnormality. 2. Large hiatal hernia. EKG poor data quality, NSR, 81 bpm, no ST change appreciated Impression - H&P Impression Assessment and Plan ALTERED MENTAL STATUS Has baseline dementia; presents with increased confusion x 1 day Likely metabolic encephalopathy due to UTI, dehydration CT head- no acute findings Monitor for delirium URINARY TRACT INFECTION UA appears infected; urine culture pending + Leukocytosis (WBC 15K); afebrile, no sepsis Treated with empiric ceftriaxone in ER Continue ceftriaxone DEHYDRATION Clinically dry, Cr 1.3 (was 1.1 in 07/2016), BUN 22 Given 1 liter IVF's in ER Continue NSS at 100 mL/hour MILDLY ELEVATED TROPONIN Denies chest pain; EKG- no obvious ischemic change Monitor in telemetry Trend cardiac enzymes ABNORMAL LFT'S No prior LFT"s for comparison No recent alcohol intake Consider RUQ ultrasound, hepatitis panel AMBULATORY DYSFUNCTION Fall precautions PT and OT evaluations ERYTHEMA OF BUTTOCKS Consult wound care nurse GERD Continue PPI DVT PROPHYLAXIS Heparin SQ CODE STATUS DNR per my discussion with patient's son Miki Cutler at bedside who is POA. . DISPOSITION Lives with her son; also of note the son's sister today and he is responsible for arrangements May need placement; criminal justice social worker consulted Patient seen in collaboration with Dr. Thakur. Please see his addendum. Attending Note: Patient is an 87 yr female with dementia presents with history of altered mental status and burning micturition. She denies chest pain, SOB, abdominal pain, nausea, vomiting. CT head showed no acute pathology. UA is suggestive of UTI. Has elevated LFTs and leukocytosis on blood work.Clinically looks dehydrated. Physical Exam: Vitals signs as noted above General Appearance:Moderately built and nourished, no apparent distress Head: normocephalic, Atraumatic Eyes: normal inspection, EOMI, PERRL Neck: supple, Trachea midline Respiratory/Chest: Normal breath sounds, CTA Cardiovascular: S1, S2, No murmur Abdomen/GI:Soft, Non tender, Bowel sounds present Extremities/Musculoskelatal:normal inspection, no edema Neurologic/Psych:grossly no focal neurological deficits Skin:normal color,warm Assessment and Plan: Encephalopathy H/O baseline dementia Likely secondary to UTI Urine culture Continue Rocephin CT head: no acute pathology No signs of sepsis clinically dehydrated, monitor renal function Abnormal LFTs: Unknown baseline Check ABD USD, hepatitis panel Avoid Hepatotoxic meds Consider GI eval based on work up I personally reviewed the record. Patient is interviewed and examined at bedside. Patient's care is coordinated with Starr Curran PA-C. Please refer to the documentation above for details of patient's presentation and for discussion of other issues. VTE Prophylaxis VTE Risk Assessment Done? Y/N: Yes Risk Level: High Physical Exam (per Admitting): General Appearance: no apparent distress, + thin, + pertinent finding ( pleasantly confused frail elderly female, son at bedside) Head: normocephalic, atraumatic Eyes: normal inspection, PERRL, EOMI ENT: hearing grossly normal, pharynx normal, + pertinent finding (dry oral mucosa. mostly edentulous.) Neck: supple, trachea midline Respiratory/Chest: lungs clear, normal breath sounds, no respiratory distress Cardiovascular: regular rate, rhythm, no murmur, normal peripheral pulses Abdomen/GI: normal bowel sounds, non tender, soft Extremities/Musculoskelatal: no calf tenderness, no pedal edema Neurologic/Psych: supervisor marble II-XII nml as tested (no dysarthria or facial droop), alert, normal mood/affect, + disoriented (oriented to herself and her son, disoriented to place and date), + pertinent finding (pleasantly confused, repetitive. follows basic commands. no focal motor deficit. csm consultant strength 5/5 bilateral upper extremities. bilateral UE generally weak, able to lift off the bed equally,strength 4/5. ) Skin: normal color, warm/dry, + pertinent finding (erythema on buttocks per ER nursing staff) Hospital Course Acute cholecystitis with Choledocholithiasis Abdomen USD: suggestive of acute cholecystis and biliary obstruction IV fluids,Pain Medication and IV Ceftriaxone and Flagyl Appreciate Surgery input S/P Lap Cholecystectomy Perioperative cholangiogram showed Choledocholithiasis GI consulted-appreciate Input S/O ERCP -sphincterotomy done No more symptoms Drain can come out before discharge UTI: Urine culture:Proteus Received Ceftriaxone WCC increasing Will start Augmentin which will cover GI related Bug as well NSVT: Had a short run of VT overnight. Patient asymptomatic Monitor electrolytes ECHO: * Ejection Fraction = 55-60%. * There is mild concentric left ventricular hypertrophy. * Mild basal posterior wall hypokinesis, otherwise, normal wall motion. * Grade I diastolic dysfunction, (abnormal relaxation pattern). * Aortic valve sclerosis mild, without significant aortic valvular stenosis. * There is mild mitral regurgitation. * There is trace tricuspid regurgitation. * Doppler findings do not suggest pulmonary hypertension. Appreciate Cardiology Input Continue BB and increased dose due to RVR in last night No more events Remains stable Encephalopathy: Likely metabolic from infection H/O baseline dementia CT head:No acute intracranial findings Resolved WILNER DEHYDRATION Clinically dry, Cr 1.3 on presentation Continue IV fluids Cr is back to baseline AMBULATORY DYSFUNCTION Fall precautions PT/OT-recommended Rehab GI prophylaxis Has GERD Continue PPI DVT Px Heparin SQ CODE STATUS DNR per discussion with patient's son Miki Cutler at bedside who is POA. . DISPOSITION May need placement; criminal justice social worker consulted Monitor in Tele Likely to discharge in a day or two Has had a detailed discussion with the Sons Answered all of their questions Discussed with the Son again today Total time spent on discharge = 40 minutes This includes examination of the patient, discharge planning, medication reconciliation, and communication with other providers. Discharge Instructions Date of Service Apr 24, 2017. Admission Reason for Admission: Altered Mental Status, Uti Discharge Discharge Diagnosis / Problem: Acute Cholecystitis s/o Lap Cholecystectomy,CBD stone s/p ERCP,AF Discharge Goals Goal(s): Prevent Disease Progression Activity Recommendations Activity Level: Assistance Required Therapies: Physical Therapy, Occupational Therapy . Additional Information Patient informed of condition: Yes Advance Directives: No DNR: Yes Level of Care: Skilled Communicable Disease: No Prognosis: Stable Oxygen at (LPM): 2-3 liters /min via NC keep saturation >89% Grijalva Catheter: Yes (Can come out in 3-5 days) Instructions / Follow-Up Instructions / Follow-Up Please make an appointment with your PCP in 1 week Current Hospital Diet Patient's current hospital diet: Regular Diet Discharge Diet Recommended Diet: Regular Diet Procedures Procedures Performed: Endoscopic Retrograde Cholangiopancreatogram with sphincterotomy, dilation, and stone extraction Pending Studies Studies pending at discharge: no Medical Emergencies . Who to Call and When: Medical Emergencies: If at any time you feel your situation is an emergency, please call 911 immediately. . Non-Emergent Contact Non-Emergency issues call your: Primary Care Provider . Past History Medical & Surgical History: (1) Acute cholecystitis (2) UTI (urinary tract infection) (3) Altered mental status (4) Dementia (5) History of open reduction and internal fixation (ORIF) procedure (6) H/O shoulder replacement . "Provider Documentation" section prepared by Huong Suarez. . Core Measure Problem Core Measures: None <Electronically signed by Huong Suarez M.D.> Signed: 04/24/17 [id number] Additional Copies To Zane Zeng D.OJane
== END 2017-04-24 13:37 | DRG 417 ==
LOC: EDBD 11:46 → C.EDB 11:47 → C.MED 15:46 → ENRESERV 17:29
PROVIDERS: ADMIT Internal Medicine; ATTEND Internal Medicine
PROC: 0FT44ZZ Resection of Gallbladder, Percutaneous Endoscopic Approach (ICD-10-PCS; principal; 2017-04-20 13:00)
PROC: 0FC98ZZ Extirpation of Matter from Common Bile Duct, Via Natural or Artificial Opening Endoscopic (ICD-10-PCS; 2017-04-21)
DX: K80.67 Calculus of gallbladder and bile duct with acute and chronic cholecystitis with obstruction (principal); G93.41 Metabolic encephalopathy; I50.31 Acute diastolic (congestive) heart failure; N39.0 Urinary tract infection, site not specified; N17.9 Acute kidney failure, unspecified; I47.2 Ventricular tachycardia; F03.90 Unspecified dementia, unspecified severity, without behavioral disturbance, psychotic disturbance, mood disturbance, and anxiety; K21.9 Gastro-esophageal reflux disease without esophagitis; E86.0 Dehydration; I49.3 Ventricular premature depolarization; B96.4 Proteus (mirabilis) (morganii) as the cause of diseases classified elsewhere; K44.9 Diaphragmatic hernia without obstruction or gangrene; Z66 Do not resuscitate; Z79.82 Long term (current) use of aspirin; Z79.899 Other long term (current) drug therapy

== ENCOUNTER → 2017-06-02 | Outpatient (CLI) | payer OTHER, MEDICARE ==
[~2017-06-02] MED LIST changes: +AMOX1TAB42 PO; -ASPEC325 PO; +ASPI-435 PO; -CALC-20 PO; +CALC600T PO; -CTP1 PO; +LCTX PO; +LPR25 PO; +MGNO400 PO; -MOMLX PO; +MRLP17X PO; +OMEP20TA31 PO; -RXC5 PO; +SENN8.6T11 PO
--- NOTE | 2017-06-02 10:47 | DIAGNOSTIC IMAGING REPORT ---
CHEST 2 VIEWS ROUTINE CLINICAL HISTORY: 87 years-old Female presenting with J18.9 [id number] Pleural [id number]. TECHNIQUE: Portable upright AP view of the chest was obtained. COMPARISON: 04/23/2017. FINDINGS: Atherosclerosis of aortic arch. Cardiac silhouette enlarged. Persistent elevation of the left hemidiaphragm. Persistent right lung opacities with a mid to basilar predominance and less extensive left basilar opacities. Persistent moderate right and small left pleural effusions. Asymmetric lucency of the left lung without gross evidence of a pneumothorax. Sclerotic lesion in the left humeral head with a stippled pattern could suggest a chondroid lesion. Right shoulder arthroplasty. Surgical clips project over the right upper quadrant. IMPRESSION: 1. No significant change. Persistent moderate right and small left pleural effusions with right greater than left basilar predominant opacities, possibly atelectasis or consolidation. Electronically signed by: Jasiel Calloway M.D. 06/02/2017 10:46 AM Dictated Date/Time: 06/02/2017 10:36 AM
[2017-06-02 12:23] LABS: BASO % 0.2 %; BASO ABS # 0.02 K/uL (0-0.2); COMPLETE YES; EOS % 2.2 %; HEMATOCRIT 34.7 % (37-47); IG% 0.3 %; LYMPH % 10.1 %; LYMPH ABS # 0.97 K/uL (1.2-3.4); MEAN CELL VOLUME 86.3 fL (80-100); MEAN CORPUSCULAR HEMOGLOBIN 28.4 pg (25-34); MEAN CORPUSCULAR HGB CONC 32.9 g/dl (32-36); MEAN PLATELET VOLUME 12.5 fL (7.4-10.4); MONO % 8.7 %; NEUT % 78.5 %; PLATELET COUNT 318 K/uL (130-400); RED BLOOD COUNT 4.02 M/uL (4.2-5.4); WHITE BLOOD COUNT 9.61 K/uL (4.8-10.8)
[2017-06-02 12:33] LABS: BLOOD UREA NITROGEN 29 mg/dl (7-18); BUN/CREATININE RATIO 37.1 (10-20); CALCIUM 9.2 mg/dl (8.5-10.1); CARBON DIOXIDE 29 mmol/L (21-32); CHLORIDE 102 mmol/L (98-107); CREATININE 0.79 mg/dl (0.60-1.20); GLUCOSE 98 mg/dl (70-99); POTASSIUM 4.2 mmol/L (3.5-5.1); SODIUM 137 mmol/L (136-145)
== END | disposition home or self-care (01) ==
LOC: C.RAD1850 10:04
PROVIDERS: ATTEND Physician Assistant
DX: J18.9 Pneumonia, unspecified organism (principal); J90 Pleural effusion, not elsewhere classified

== ENCOUNTER → 2017-06-27 | Outpatient (CLI) | payer OTHER, MEDICARE ==
[~2017-06-27] MED LIST changes: -AMOX1TAB42 PO; +ASCO1CAP3 PO; -LPR25 PO; -MGNO400 PO; -MULT-897 PO; +MULTTAB63 PO; -SENN8.6T11 PO; +SENN8.6T96 PO; +SULF800T23 PO
== END ==
LOC: C.LABCC 14:00 → EDSTATUS 07-01 12:45
PROVIDERS: ATTEND Internal Medicine
DX: L08.9 Local infection of the skin and subcutaneous tissue, unspecified (principal)

== ENCOUNTER → 2017-07-14 | Outpatient (CLI) | payer OTHER, MEDICARE ==
[~2017-07-14] MED LIST changes: +OPTIRAY 320 IV PRN
--- NOTE | 2017-07-14 14:30 | DIAGNOSTIC IMAGING REPORT ---
ABDOMEN AND PELVIS CT WITH IV AND ORAL CONTRAST CT DOSE: 335.82 mGycm HISTORY: Follow-up study to assess multiple low-density soft tissue nodules in the splenic hilum seen on comparison chest CT ABNORMAL SPLENIC LESION TECHNIQUE: Multiaxial CT images of the abdomen and pelvis were performed following the use of intravenous and oral contrast. 95 mL Optiray 320 IV contrast was administered. A dose lowering technique was utilized adhering to the principles of ALARA. COMPARISON STUDY: Chest CT 06/22/2017. FINDINGS: Study is limited secondary to mild patient motion and beam hardening artifact from the positioning of the patient's arms. Small right pleural effusion with mild right pleural thickening is unchanged. Mild bibasilar atelectasis. There is no pneumoperitoneum identified. The imaged inferior cardiac chambers are unremarkable. Coronary arterial calcifications are present. There is a trace pericardial effusion. Prior cholecystectomy. The liver, and adrenal glands are unremarkable. There is moderate diffuse pancreatic atrophy. Spleen is diminutive in size, 7 cm in length. Ill-defined low attenuating lobular likely confluent lesions are again seen adjacent to the splenic hilum, overall measuring up to 2.8 x 1.7 x 3.3 cm on image 77 series 3 with Hounsfield unit of 15. Mild bilateral renal atrophy with areas of cortical thinning and lobulation. No renal calculi or hydronephrosis. Urinary bladder is collapsed. Ureters are unremarkable. Uterus is age appropriate. Small nonspecific cystic structure of the right adnexum is seen, 1.3 x 1.0 cm on image 212 series 3. No left adnexal mass lesion. 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 There is tortuosity of the descending thoracic aorta. 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 Extensive atheromatous plaquing is seen within the infrarenal abdominal aorta. Large hiatal hernia with the majority of the stomach present within the thoracic cavity is noted. There also appears to be nonobstructing gastric volvulus which is only partially imaged. There is no bowel obstruction. Large stool ball in the rectal vault measures 6.9 x 7.7 cm. Moderate colonic diverticulosis without diverticulitis. Moderate volume of formed stool is seen throughout the colon compatible with constipation. The appendix is not seen. No secondary signs of acute appendicitis. There is moderate atrophy of the gluteal, paraspinal and proximal thigh musculature. Right hip arthroplasty. The bones appear moderately demineralized. Age-indeterminate however remote appearing at least 50% anterior endplate compression deformity is seen within the L1 vertebral body without retropulsion. IMPRESSION: 1. Lobular low attenuating lesions adjacent to the splenic hilum with ill-defined margins appear to be confluent with one another overall measuring up to 2.8 x 1.7 x 3.3 cm. 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 Follow-up CT in 6 months recommended as a precautionary measure. 2. Large hiatal hernia with an apparent nonobstructing gastric volvulus. 3. Suggested constipation with large stool ball within the rectal vault. 4. Indeterminate 1.0 x 1.3 cm cystic lesion of the right adnexum. 5. 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 6. Small right pleural effusion with unchanged pleural thickening. Electronically signed by: Yg Adams M.D. 07/14/2017 2:29 PM Dictated Date/Time: 07/14/2017 2:10 PM
== END ==
LOC: C.CTS 13:09
PROVIDERS: ATTEND Internal Medicine
DX: D73.89 Other diseases of spleen (principal); K44.9 Diaphragmatic hernia without obstruction or gangrene; J90 Pleural effusion, not elsewhere classified